=== PATIENT | female | born 1980 | race Caucasian/White ===

== ENCOUNTER 2019-09-23 00:46 | Emergency (ER) | payer MEDICARE ==
[~2019-09-23] VITALS: Ht 170 cm; Wt 58.2 kg
[2019-09-23 01:47] LABS: BASOPHILS % (AUTO) 0 % (0-10); EOSINOPHILS # (AUTO) 0.2 10^3/uL (0.0-0.3); EOSINOPHILS % (AUTO) 2 % (0-10); HEMATOCRIT 41 % (35-52); HEMOGLOBIN 13.8 G/DL (11.5-16.0); LYMPHOCYTES # (AUTO) 2.2 X 10^3 (1.0-4.0); LYMPHOCYTES % (AUTO) 32 % (12-44); MEAN CORPUSCULAR HEMOGLOBIN 31 PG (25-34); MEAN CORPUSCULAR HGB CONC 34 G/DL (32-36); MEAN CORPUSCULAR VOLUME 92 FL (80-99); MEAN PLATELET VOLUME 10.4 FL (7.4-10.4); MONOCYTES # (AUTO) 0.5 X 10^3 (0.0-1.0); MONOCYTES % (AUTO) 7 % (0-12); NEUTROPHILS % (AUTO) 59 % (42-75); PLATELET COUNT 187 10^3/uL (130-400); RED CELL DISTRIBUTION WIDTH 12.9 % (10.0-14.5); WHITE BLOOD COUNT 6.9 10^3/uL (4.3-11.0)
[2019-09-23 02:10] LABS: ALANINE AMINOTRANSFERASE 22 U/L (0-55); ALBUMIN 4.7 GM/DL (3.2-4.5); ALKALINE PHOSPHATASE 76 U/L (40-136); AMYLASE 48 U/L (25-125); BILIRUBIN,TOTAL 0.2 MG/DL (0.1-1.0); BUN/CREATININE RATIO 19; CALCIUM 9.2 MG/DL (8.5-10.1); CARBON DIOXIDE 19 MMOL/L (21-32); CHLORIDE 110 MMOL/L (98-107); CREATINE KINASE 102 U/L (29-168); CREATININE SERUM 0.84 MG/DL (0.60-1.30); GFR ESTIMATED > 60; GLUCOSE 91 MG/DL (70-105); LIPASE 79 U/L (8-78); MAGNESIUM 2.1 MG/DL (1.6-2.4); POTASSIUM 4.1 MMOL/L (3.6-5.0); SODIUM 139 MMOL/L (135-145); TOTAL PROTEIN 7.4 GM/DL (6.4-8.2)
[2019-09-23 02:11] LABS: BILIRUBIN,URINE NEGATIVE (NEGATIVE); CLARITY,URINE CLEAR; COLOR,URINE YELLOW; GLUCOSE, URINE (UA) NEGATIVE (NEGATIVE); KETONES,URINE NEGATIVE (NEGATIVE); LEUKOCYTE ESTERASE ,URINE NEGATIVE (NEGATIVE); NITRITE,URINE NEGATIVE (NEGATIVE); PH,URINE 7.5 (5-9); PROTEIN,URINE NEGATIVE (NEGATIVE)
[2019-09-23 02:17] LABS: CREATINE KINASE MB 1.6 NG/ML (<6.6)
[2019-09-23 02:18] LABS: PROTHROMBIN TIME PATIENT 13.8 SEC (12.2-14.7)
[2019-09-23 02:26] LABS: AMORPHOUS SEDIMENT,UR MOD AMOR PHOSPHATE /LPF; AMPHETAMINE SCREEN, URINE NEGATIVE (NEGATIVE); BACTERIA,URINE MODERATE /HPF; BARBITURATE SCREEN URINE NEGATIVE (NEGATIVE); BENZODIAZEPINES SCREEN URINE NEGATIVE (NEGATIVE); CANNABINOID SCREEN, URINE NEGATIVE (NEGATIVE); COCAINE SCREEN URINE NEGATIVE (NEGATIVE); METHADONE STAT NEGATIVE (NEGATIVE); METHAMPHETAMINE SCREEN URINE S NEGATIVE (NEGATIVE); OPIATE SCREEN URINE NEGATIVE (NEGATIVE); OXYCODONE STAT NEGATIVE (NEGATIVE); PROPOXYPHENE STAT NEGATIVE (NEGATIVE); SQUAMOUS EPITHELIAL CELL,UR 0-2 /HPF; TRICYCLIC ANTIDEPRESSANTS SCRE NEGATIVE (NEGATIVE)
--- NOTE | 2019-09-23 02:32 | ED Chest Pain ---
General Chief Complaint: Chest Pain Stated Complaint: CP/BACK PAIN Nursing Triage Note: Pt ambulates to 6 with multiple complaints. Pt c/o intermittent sternal chest pain and back pain x 2-3 wks. Pt also has c/o wheezing/increased work of breathing and jaw "throbbing" x 2 days. Pt states she is also "anxious because hasn't had her echo done in 5 months". Pt is hypotensive on arrival, pt states she has Hx of low blood pressure. 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 Smoking Status: Current Everyday Smoker Type Used: Cigarettes 2nd Hand Smoke Exposure: No Recent Foreign Travel: No Contact w/Someone Who Travel: No Recent Infectious Disease Expo: No Recent Hopitalizations: No Physical Abuse: No Sexual Abuse: No Mistreated: No Fear: No Seasonal Allergies Seasonal Allergies: No Past Medical History Surgeries: Yes (mitral valve replacement, cyst removal, MIHIR procedure ) Abdominal, Gallbladder Respiratory: No Cardiac: Yes (2 mitral valve replacements ) Hypotension Neurological: Yes (3 strokes, last one 2007, right sided residual deficits) Stroke Genitourinary: No Gastrointestinal: No Musculoskeletal: No Endocrine: No HEENT: No Cancer: No Psychosocial: Yes Depression Integumentary: No Blood Disorders: No Physical Exam Vital Signs Vital Signs - First Documented 09/23/19 01:43 Temp 36.6 Pulse 67 Resp 20 B/P (MAP) 101/46 (64) Pulse Ox 100 O2 Delivery Room Air Capillary Refill : Less Than 3 Seconds Height, Weight, BMI Height: '" Weight: lbs. oz. kg; 20.00 BMI Method: Progress/Results/Core Measures Results/Orders Lab Results Laboratory Tests Test 09/23/19 01:37 09/23/19 01:58 09/23/19 02:00 Range/Units White Blood Count 6.9 4.3-11.0 10^3/uL Red Blood Count 4.47 4.35-5.85 10^6/uL Hemoglobin 13.8 11.5-16.0 G/DL Hematocrit 41 35-52 % Mean Corpuscular Volume 92 80-99 FL Mean Corpuscular Hemoglobin 31 25-34 PG Mean Corpuscular Hemoglobin Concent 34 32-36 G/DL Red Cell Distribution Width 12.9 10.0-14.5 % Platelet Count 187 130-400 10^3/uL Mean Platelet Volume 10.4 7.4-10.4 FL Neutrophils (%) (Auto) 59 42-75 % Lymphocytes (%) (Auto) 32 12-44 % Monocytes (%) (Auto) 7 0-12 % Eosinophils (%) (Auto) 2 0-10 % Basophils (%) (Auto) 0 0-10 % Neutrophils # (Auto) 4.0 1.8-7.8 X 10^3 Lymphocytes # (Auto) 2.2 1.0-4.0 X 10^3 Monocytes # (Auto) 0.5 0.0-1.0 X 10^3 Eosinophils # (Auto) 0.2 0.0-0.3 10^3/uL Basophils # (Auto) 0.0 0.0-0.1 10^3/uL Sodium Level 139 135-145 MMOL/L Potassium Level 4.1 3.6-5.0 MMOL/L Chloride Level 110 H 98-107 MMOL/L Carbon Dioxide Level 19 L 21-32 MMOL/L Anion Gap 10 5-14 MMOL/L Blood Urea Nitrogen 16 7-18 MG/DL Creatinine 0.84 0.60-1.30 MG/DL Estimat Glomerular Filtration Rate > 60 BUN/Creatinine Ratio 19 Glucose Level 91 70-105 MG/DL Calcium Level 9.2 8.5-10.1 MG/DL Corrected Calcium 8.5-10.1 MG/DL Magnesium Level 2.1 1.6-2.4 MG/DL Total Bilirubin 0.2 0.1-1.0 MG/DL Aspartate Amino Transf (AST/SGOT) 24 5-34 U/L Alanine Aminotransferase (ALT/SGPT) 22 0-55 U/L Alkaline Phosphatase 76 40-136 U/L Total Creatine Kinase 102 29-168 U/L Creatine Kinase MB 1.6 <6.6 NG/ML Myoglobin 27.0 10.0-92.0 NG/ML Troponin I < 0.028 <0.028 NG/ML B-Type Natriuretic Peptide 18.8 <100.0 PG/ML Total Protein 7.4 6.4-8.2 GM/DL Albumin 4.7 H 3.2-4.5 GM/DL Amylase Level 48 25-125 U/L Lipase 79 H 8-78 U/L Serum Test, Qualitative NEGATIVE NEGATIVE Serum Alcohol < 10 <10 MG/DL Prothrombin Time 13.8 12.2-14.7 SEC INR Comment 1.0 0.8-1.4 Activated Partial Thromboplast Time 31 24-35 SEC Urine Color YELLOW Urine Clarity CLEAR Urine pH 7.5 5-9 Urine Specific [place] 1.015 L 1.016-1.022 Urine Protein NEGATIVE NEGATIVE Urine Glucose (UA) NEGATIVE NEGATIVE Urine Ketones NEGATIVE NEGATIVE Urine Nitrite NEGATIVE NEGATIVE Urine Bilirubin NEGATIVE NEGATIVE Urine Urobilinogen 0.2 < = 1.0 MG/DL Urine Leukocyte Esterase NEGATIVE NEGATIVE Urine RBC (Auto) NEGATIVE NEGATIVE Urine RBC NONE /HPF Urine WBC NONE /HPF Urine Squamous Epithelial Cells 0-2 /HPF Urine Crystals PRESENT H /LPF Urine Amorphous Sediment MOD JANNET PHOSPHATE H /LPF Urine Bacteria MODERATE H /HPF Urine Casts NONE /LPF Urine Mucus NEGATIVE /LPF Urine Culture Indicated NO Urine Opiates Screen NEGATIVE NEGATIVE Urine Oxycodone Screen NEGATIVE NEGATIVE Urine Methadone Screen NEGATIVE NEGATIVE Urine Propoxyphene Screen NEGATIVE NEGATIVE Urine Barbiturates Screen NEGATIVE NEGATIVE Ur Tricyclic Antidepressants Screen NEGATIVE NEGATIVE Urine Phencyclidine Screen NEGATIVE NEGATIVE Urine Amphetamines Screen NEGATIVE NEGATIVE Urine Methamphetamines Screen NEGATIVE NEGATIVE Urine Benzodiazepines Screen NEGATIVE NEGATIVE Urine Cocaine Screen NEGATIVE NEGATIVE Urine Cannabinoids Screen NEGATIVE NEGATIVE My Orders Orders - AMINTA HANNAH DO Cbc With Automated Diff (09/23/19 01:36) Magnesium (09/23/19 01:36) Chest 1 View, Ap/Pa Only (09/23/19:36) Ekg Tracing (09/23/19 01:36) Comprehensive Metabolic Panel (09/23/19 01:36) Myoglobin Serum (09/23/19 01:36) Protime With Inr (09/23/19:36) Partial Thromboplastin Time (09/23/19:36) O2 (09/23/19 01:36) Monitor-Rhythm Ecg Trace Only (09/23/19 01:36) Ed Iv/Invasive Line Start (09/23/19 01:36) Creatine Kinase (09/23/19 01:36) Creatine Kinase Mb (09/23/19 01:36) Lipase (2/16/20 01:36) Amylase (09/23/19 01:36) BNP (09/23/19 01:36) Drug Screen Stat (Urine) (09/23/19 01:36) Hcg,Qualitative Serum (09/23/19 01:36) Ua Culture If Indicated (09/23/19 01:36) Alcohol (09/23/19 01:37) Troponin I (09/23/19 01:37) Vital Signs/I&O 09/23/19 09/23/19 01:43 01:48 Temp 36.6 Pulse 67 Resp 20 B/P (MAP) 101/46 (64) Pulse Ox 100 O2 Delivery Room Air Room Air Blood Pressure Mean: 64 Departure Impression Primary Impression: Chest wall pain Disposition: HOME, SELF-CARE Condition: Stable Departure-Patient Inst. Referrals: NO,LOCAL PHYSICIAN (PCP/Family) Primary Care Physician Patient Instructions: Chest Pain (DC), Costochondritis (DC) Add. Discharge Instructions: ALTERNATE ICE AND HEAT TO SORE AREAS AT 20 MINUTE INTERVALS TYLENOL AND MOTRIN NEEDED FOR PAIN FOLLOW UP WITH LOCAL DR OF CHOICE SOON POSSIBLE TO ESTABLISH CARE All discharge instructions reviewed with patient and/or family. Voiced understanding. Work/School Note: Local Medical Staff Listing AMINTA HANNAH DO Sep 23, 2019 02:32
[2019-09-23 02:39] VITALS: BP 91/55
--- NOTE | 2019-09-23 07:41 | Diagnostic Imaging Report ---
INDICATION: Chest pain. FINDINGS: Lungs appear to be mildly hyperinflated evidenced by flattened diaphragms. There are no focal infiltrates. There is no effusion. There is no pneumothorax. Heart size and mediastinal contours appear appropriate. Linear densities over the mid chest may reflect prior sternotomy wires. Heart size appropriate. There is no evidence of current failure. IMPRESSION: 1. Hyperinflated clear lungs. No acute cardiopulmonary process evident. Dictated by: Dictated on workstation # [id number]
== END 2019-09-23 02:39 | disposition home or self-care (01) ==
LOC: EDUNIT# 00:46 → ER 00:48
DX: R07.89 Other chest pain (principal); F17.210 Nicotine dependence, cigarettes, uncomplicated; Z95.2 Presence of prosthetic heart valve; Z86.73 Personal history of transient ischemic attack (TIA), and cerebral infarction without residual deficits
CPT/HCPCS: 36415; 71045; 80053; 80306; 80320; 81000; 82150; 82550; 82553; 83690; 83735; 83874; 83880; 84484; 84703; 85025; 85610; 85730; 93005; 93041

== ENCOUNTER 2019-10-18 22:34 | Emergency (ER) | payer MEDICARE ==
[~2019-10-18] VITALS: Ht 170.2 cm; Wt 59.0 kg
--- NOTE | 2019-10-19 01:33 | ED Fall/Injury ---
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 Pt reports hitting head, denies LOC. C/O headache and R elbow pain Source: patient History of Present Illness Date Seen by Provider: Oct 18, 2019 Time Seen by Provider: 23:55 Initial Comments PT ARRIVES VIA POV FROM HOME STATES SHE FELL DOWN 2 STEPS AT HOME, ONTO CEMENT GIVES VERY VAGUE DETAILS ABOUT THE INCIDENT--STATES IT OCCURRED AN HOUR AGO AND WAS WITNESSED BY HER BOYFRIEND C/O PAIN TO HER HEAD--DOES NOT KNOW IF SHE HIT HER HEAD OR NOT, AND CANNOT STATE WHAT PART OF HER HEAD HURTS. 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 PT IS UP TO DATE ON TETANUS VACCINATION PCP: MIGUELINA, ALSO GOES TO [facility] Allergies and Home Medications Allergies Coded Allergies: metronidazole (Unverified Allergy, Unknown, 09/23/19) Patient Home Medication List Home Medication List Reviewed: Yes Review of Systems Review of Systems Constitutional: no symptoms reported Eyes: No Symptoms Reported Ears, Nose, Mouth, Throat: no symptoms reported Respiratory: no symptoms reported Cardiovascular: no symptoms reported Gastrointestinal: no symptoms reported Genitourinary: no symptoms reported : No LMP: Oct 09, 2019 Musculoskeletal: see HPI Skin: no symptoms reported Psychiatric/Neurological: See HPI, Pre-Existing Deficit Past Alxfnzv-Zalhou-Dxncft Hx Past Med/Social Hx: Reviewed and Corrections made Patient Social History Alcohol Use: Denies Use Recreational Drug Use: Yes (+IV HEROIN USE) Drug of Choice: + IV HEROIN USE Smoking Status: Current Everyday Smoker (>1 PPD) Type Used: Cigarettes (> 1 PPD) 2nd Hand Smoke Exposure: No Recent Foreign Travel: No Contact w/Someone Who Travel: No Recent Infectious Disease Expo: No Recent Hopitalizations: No Immunizations Up To Date Tetanus Booster (TDap): Unknown Seasonal Allergies Seasonal Allergies: No Past Medical History Surgeries: Yes (Mitral valve replacement x 2, craniotomy, MIHIR procedure) Cardiac, Gallbladder, Neurological, Tonsillectomy, Valve Replacement Respiratory: No Cardiac: Yes (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) Endocarditis, Valvular Heart Disease Neurological: Yes (RIGHT ARM PARALYSIS W/ CONTRACTURES;CVA X 3-LAST ONE 2007;LEFT CRANIOTOMY) Paralysis, Seizure Disorder, Stroke Last Menstrual Period: Oct 17, 2019 Reproductive Disorders: No Female Reproductive Disorders: Denies Genitourinary: No Gastrointestinal: Yes ("MIHIR PROCEDURE" ON COLON) Chronic Constipation Musculoskeletal: Yes (RIGHT ARM CONTRACTURES) Contracture Endocrine: No HEENT: No Cancer: No Psychosocial: Yes (SUBSTANCE ABUSE) Anxiety, Depression Integumentary: No Blood Disorders: No Family Medical History PSH: -MITRAL VALVE REPLACEMENT X 2--LAST ONE IN 2007 IN [facility]. DUE TO ENDOCARDITIS DUE TO IV HEROIN USE -LEFT CRANIOTOMY DUE TO "BLOOD CLOT ON BRAIN" -"MIHIR PROCEDURE" ON COLON -CHOLECYSTECTOMY -CYST REMOVAL Physical Exam Vital Signs Vital Signs - First Documented 10/18/19 23:08 Temp 36.8 Pulse 68 Resp 18 B/P (MAP) 125/67 (86) Pulse Ox 100 O2 Delivery Room Air Capillary Refill : Less Than 3 Seconds Height, Weight, BMI Height: '" Weight: lbs. oz. kg; 20.00 BMI Method: General Appearance: no apparent distress, thin, other (SMILING, PLAYING/TEXTING ON PHONE,DOES NOT APPEAR TO BE IN ANY DISCOMFORT OR DISTRESS) HEENT: PERRL/EOMI, normal ENT inspection, TMs normal, pharynx normal, other (NO EXTERNAL EVIDENCE OF TRAUMA OR TENDERNESS. LEFT SKULL DEFORMITY FROM PREVIOUS CRANIOTOMY) Neck: non-tender, full range of motion, supple, normal inspection Cardiovascular: normal peripheral pulses, regular rate, rhythm, no murmur Respiratory: chest non-tender, normal breath sounds, no respiratory distress, no accessory muscle use Peripheral Pulses: 2+ Dorsalis Pedis (R), 2+ Left Dors-Pedis (L), 2+ Radial Pulses (R), 2+ Radial Pulses (L) Gastrointestinal: normal bowel sounds, non tender, soft Back: normal inspection, no CVA tenderness, no vertebral tenderness Extremities: no pedal edema, no calf tenderness, normal capillary refill, other (VERY SLIGHT TENDERNESS TO RIGHT ELBOW, WITH VERY MINOR / SUPERFICIAL ABRASIONS--BARELY BROKE SKIN. NO SWELLING OR REDNESS OR BRUISING. NO DEFORMITY. 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 ) Skin: normal color, warm/dry [place] Coma Score Best Eye Response: (4) Open Spontaneously Best Verbal Response: (5) Oriented Best Motor Response: (6) Obeys Commands [place] Total: 15 Progress/Results/Core Measures Results/Orders My Orders Orders - AMINTA HANNAH DO Ct Head/Cervical Spine Wo (10/19/19 00:04) Elbow, Right, 3 Views (10/19/19 00:04) Vital Signs/I&O 10/18/19 10/19/19 23:08 01:56 Temp 36.8 36.8 Pulse 68 65 Resp 18 18 B/P (MAP) 125/67 (86) 132/71 (86) Pulse Ox 100 100 O2 Delivery Room Air Room Air Blood Pressure Mean: 86 Diagnostic Imaging Comments XRAYS RIGHT ELBOW--NO ACUTE PROCESS, PENDING RADIOLOGIST REVIEW CT HEAD/CERVICAL SPINE--NO ACUTE PROCESS, POST SURGICAL CHANGES PER STAT RAD VIA FAX Reviewed: Reviewed by Me Departure Impression Primary Impression: Minor head injury without loss of consciousness Additional Impressions: Contusion of right elbow CERVICAL SPINE STRAIN Disposition: 01 HOME, SELF-CARE Condition: Stable Departure-Patient Inst. Referrals: NO,LOCAL PHYSICIAN (PCP/Family) Primary Care Physician Patient Instructions: Cervical Muscle Strain (DC), Contusion (DC), Minor Head Injury (DC) Add. Discharge Instructions: ICE TO SORE AREAS AT 20 MINUTE INTERVALS TYLENOL NEEDED FOR PAIN FOLLOW UP WITH YOUR DR IN 1 WEEK IF NO BETTER, RETURN TO ER IF WORSE All discharge instructions reviewed with patient and/or family. Voiced understanding. AMINTA HANNAH DO Oct 19, 2019 01:32
[2019-10-19 01:56] VITALS: BP 132/71
--- NOTE | 2019-10-19 06:13 | Diagnostic Imaging Report ---
PROCEDURE: CT head and CT cervical spine without contrast. TECHNIQUE: Multiple contiguous axial images were obtained through the brain and cervical spine without the use of intravenous contrast. Sagittal and coronal reformations through the cervical spine were then performed. Auto Exposure Controls were utilized during the CT exam to meet ALARA standards for radiation dose reduction. INDICATION: Head and neck pain after fall. Comparison made with prior examination 02/04/2008. FINDINGS: The ventricles and sulci are within normal limits. There is no hydrocephalus or cerebral edema. There is no midline shift or mass effect. There is no intracranial mass, hemorrhage or extra-axial fluid collection. The visualized paranasal sinuses and mastoid air cells are clear. No fractures are identified. CERVICAL SPINE: Alignment is normal. There is no fracture or traumatic subluxation. The prevertebral soft tissues are within normal limits. The odontoid is intact and the lateral masses are well aligned. There are no soft tissue abnormalities. IMPRESSION: 1. No acute intracranial process. 2. No focal abnormality in the cervical spine. Dictated by: Dictated on workstation # [id number]
--- NOTE | 2019-10-19 06:55 | Diagnostic Imaging Report ---
INDICATION: Status post fall earlier in the day, pain. TECHNIQUE: 3 views of the right elbow CORRELATION STUDY: None FINDINGS: There is normal alignment of the osseous structures of the elbow. No acute fracture. No abnormal joint effusion. IMPRESSION: 1. Negative for acute bony abnormality of the elbow. Dictated by: Dictated on workstation # [id number]
--- OUTSIDE RECORDS SUMMARY | 2019-10-20 20:25 | XMS REPORT | Continuity of Care Document ---
Author Organization Unknown Address Unknown Phone Unavailable Allergies Active Description Code Type Severity Reaction Onset Reported/Identified Relationship to Patient Clinical Status Yes metronidazole [id number] Manuel g Allergy Unknown N/A 09/23/2019 Medications There is no data. Problems Date Dx Coded Attending Type Code Diagnosis Diagnosed By 09/23/2019 CAMDEN DO, AMINTA K Ot F17.210 NICOTINE DEPENDENCE, CIGARETTES, UNCOMPL 09/23/2019 CAMDEN DO, AMINTA K Ot R07.89 OTHER CHEST PAIN 09/23/2019 CAMDEN DO, AMINTA K Ot R07.9 CHEST PAIN, UNSPECIFIED 09/23/2019 CAMDEN DO, AMINTA K Ot Z86.73 PRSNL HX OF TIA (TIA), AND CEREB INFRC W 09/23/2019 CAMDEN DO, AMINTA K Ot Z95.2 PRESENCE OF PROSTHETIC HEART VALVE 09/28/2019 CAMDEN DO, AMINTA K Ot F17.210 NICOTINE DEPENDENCE, CIGARETTES, UNCOMPL 09/28/2019 CAMDEN DO, AMINTA K Ot R07.89 OTHER CHEST PAIN 09/28/2019 CAMDEN DO, AMINTA K Ot R07.9 CHEST PAIN, UNSPECIFIED 09/28/2019 CAMDEN DO, AMINTA K Ot Z86.73 PRSNL HX OF TIA (TIA), AND CEREB INFRC W 09/28/2019 CAMDEN DO, AMINTA K Ot Z95.2 PRESENCE OF PROSTHETIC HEART VALVE 10/03/2019 CAMDEN DO, AMINTA K Ot F17.210 NICOTINE DEPENDENCE, CIGARETTES, UNCOMPL 10/03/2019 CAMDEN DO, AMINTA K Ot R07.89 OTHER CHEST PAIN 10/03/2019 CAMDEN DO, AMINTA K Ot R07.9 CHEST PAIN, UNSPECIFIED 10/03/2019 CAMDEN DO, AMINTA K Ot Z86.73 PRSNL HX OF TIA (TIA), AND CEREB INFRC W 10/03/2019 CAMDEN DO, AMINTA K Ot Z95.2 PRESENCE OF PROSTHETIC HEART VALVE Procedures There is no data. Results Test Result Range Complete blood count (CBC) with automate d white blood cell (WBC) differential - 09/23/19 01:37 Blood leukocytes automated count (number/volume) 6.9 10*3/uL 4.3-11.0 Blood erythrocytes automated count (number/volume) 4.47 10*6/uL 4.35-5.85 Venous blood hemoglobin measurement (mass/volume) 13.8 g/dL 11.5-16.0 Blood hematocrit (volume fraction) 41 % 35-52 Automated erythrocyte mean corpuscular volume 92 [ foz_us] 80-99 Automated erythrocyte mean corpuscular h emoglobin (mass per erythrocyte) 31 pg 25-34 Automated erythrocyte mean corpuscular h emoglobin concentration measurement (mass/volume) 34 g/dL 32-36 Automated erythrocyte distribution width ratio 12. 9 % 10.0- 14.5 Automated blood platelet count (count/volume) 187 10*3/uL 130-400 Automated blood platelet mean volume measurement 10.4 [foz_us] 7.4-10.4 Automated blood neutrophils/100 leukocytes 59 % 42-75 Automated blood lymphocytes/100 leukocytes 32 % 12-44 Blood monocytes/100 leukocytes 7 % 0-12 Automated blood eosinophils/100 leukocytes 2 % 0-10 Automated blood basophils/100 leukocytes 0 % 0-10 Blood neutrophils automated count (number/volume) 4.0 10*3 1.8-7.8 Blood lymphocytes automated count (number/volume) 2.2 10*3 1.0-4.0 Blood monocytes automated count (number/volume) 0. 5 10*3 0.0-1.0 Automated eosinophil count 0.2 10*3/uL 0 .0-0.3 Automated blood basophil count (count/volume) 0.0 10*3/uL 0.0-0.1 Serum or plasma choriogonadotropin (preg jael test) detection - 09/23/19 01:37 Serum or plasma choriogonadotropin ( test) de tection NEGATIVE NEGATIVE Comprehensive metabolic panel - 09/23/19 01:37 Serum or plasma sodium measurement (moles/volume) 139 mmol/L 135-145 Serum or plasma potassium measurement (moles/volume) 4.1 mmol/L 3.6-5.0 Serum or plasma chloride measurement (moles/volume) 110 mmol/L 98-107 Carbon dioxide 19 mmol/L 21-32 Serum or plasma anion gap determination (moles/volume) 10 mmol/L 5-14 Serum or plasma urea nitrogen measurement (mass/volume ) 16 mg/dL 7-18 Serum or plasma creatinine measurement (mass/volume) 0.84 mg/dL 0.60-1.30 Serum or plasma urea nitrogen/creatinine mass ratio 19 NRG Serum or plasma creatinine measurement w ith calculation of estimated glomerular filtration rate > NRG Serum or plasma glucose measurement (mass/volume) 91 mg/dL 70-105 Serum or plasma calcium measurement (mass/volume) 9.2 mg/dL 8.5-10.1 Serum or plasma total bilirubin measurement (mass/volu me) 0.2 mg/dL 0.1-1.0 Serum or plasma alkaline phosphatase bettina surement (enzymatic activity/volume) 76 U/L 40-136 Serum or plasma aspartate aminotransfera se measurement (enzymatic activity/volume) 24 U/L 5-34 Serum or plasma alanine aminotransferase measurement (enzymatic activity/volume) 22 U/L 0-55 Serum or plasma protein measurement (mass/volume) 7.4 g/dL 6.4-8.2 Serum or plasma albumin measurement (mass/volume) 4.7 g/dL 3.2-4.5 Magnesium - 09/23/19 01:37 Magnesium 2.1 mg/dL 1.6-2.4 Serum or plasma creatine kinase measurem ent (enzymatic activity/volume) - 09/23/19 01:37 Serum or plasma creatine kinase measurem ent (enzymatic activity/volume) 102 U/L 29-168 Serum or plasma creatine kinase MB measu rement (enzymatic activity/volume) - 09/23/19 01:37 Serum or plasma creatine kinase MB measu rement (enzymatic activity/volume) 1.6 ng/mL <6.6 Serum or plasma troponin i.cardiac measu rement (mass/volume) - 09/23/19 01:37 Serum or plasma troponin i.cardiac measurement (mass/v olume) < ng/mL <0.028 Serum or plasma lithium measurement (mol es/volume) - 09/23/19 01:37 BNP PT 18.8 pg/mL <100.0 Myoglobin, serum - 09/23/19 01:37 Myoglobin, serum 27.0 ng/mL 10.0-92.0 Serum or plasma amylase measurement (enz ymatic activity/volume) - 09/23/19 01:37 Serum or plasma amylase measurement (enzymatic activit y/volume) 48 U/L 25-125 Lipase - 09/23/19 01:37 Lipase 79 U/L 8-78 Serum or plasma ethanol measurement (mas s/volume) - 09/23/19 01:37 Serum or plasma ethanol measurement (mass/volume) < mg/dL <10 PT panel in platelet poor plasma by coag ulation assay - 09/23/19 01:58 Prothrombin time (PT) in platelet poor plasma by coagu lation assay 13.8 s 12.2-14.7 INR in platelet poor plasma or blood by coagulation as say 1.0 0.8-1.4 Activated partial thromboplastin time (a PTT) in platelet poor plasma bycoagulation assay - 09/23/19 01:58 Activated partial thromboplastin time (a PTT) in platelet poor plasma bycoagulation assay 31 s 24-35 Complete urinalysis with reflex to cultu re - 09/23/19 02:00 Urine color determination YELLOW NRG Urine clarity determination CLEAR NR G Urine pH measurement by test strip 7.5 5-9 Specific gravity of urine by test strip 1.015 1.016-1.022 Urine protein assay by test strip, semi-quantitative NEGATIVE NEGATIVE Urine glucose detection by automated test strip NE GATIVE NEGATIVE Erythrocytes detection in urine sediment by light micr oscopy NEGATIVE NEGATIVE Urine ketones detection by automated test strip NE GATIVE NEGATIVE Urine nitrite detection by test strip NEGATIVE NEGATIVE Urine total bilirubin detection by test strip NEGA TIVE NEGATIVE Urine urobilinogen measurement by automated test strip (mass/volume) 0.2 mg/dL < = 1.0 Urine leukocyte esterase detection by dipstick NEG ATIVE NEGATIVE Automated urine sediment erythrocyte cou nt by microscopy (number/high power field) NONE NRG Automated urine sediment leukocyte count by microscopy (number/high power field) NONE NRG Bacteria detection in urine sediment by light microsco py MODERATE NRG Squamous epithelial cells detection in u rine sediment by light microscopy 0-2 NRG Crystals detection in urine sediment by light microsco py PRESENT NRG Casts detection in urine sediment by light microscopy NONE NRG Mucus detection in urine sediment by light microscopy NEGATIVE NRG Complete urinalysis with reflex to culture NO NRG Amorphous sediment detection in urine sediment by ligh t microscopy MOD JANNET PHOSPHATE NRG Urine drug screening test - 09/23/19 02: 00 Urine phencyclidine detection by screening method NEGATIVE NEGATIVE Urine benzodiazepines detection by screening method NEGATIVE NEGATIVE Urine cocaine detection NEGATIVE NEGATI VE Urine amphetamines detection by screening method N EGATIVE NEGATIVE Urine methamphetamine detection by screening method NEGATIVE NEGATIVE Urine cannabinoids detection by screening method N EGATIVE NEGATIVE Urine opiates detection by screening method NEGATI VE NEGATIVE Urine barbiturates detection NEGATIVE N EGATIVE Screening urine tricyclic antidepressants detection NEGATIVE NEGATIVE Urine methadone detection by screening method NEGA TIVE NEGATIVE Urine oxycodone detection NEGATIVE NEGA TIVE Urine propoxyphene detection NEGATIVE N EGATIVE Encounters ACCT No. Visit Date/Time Discharge Status Pt. Type Provider Facility Loc./Unit Complaint [id number] 10/01/2019 14:20:00 10/01/2019 23:59: [address] [facility] Outpatient CHASE REYES, [facility] [id number] 10/18/2019 22:36:00 01:58:00 DIS Emergency CAMDEN DOAMINTA [facility] ER FALL [id number] 09/23/2019 00:48:00 020 02:39:00 DIS Emergency CAMDEN DOAMINTA [facility] ER CP/BACK PAIN
== END 2019-10-19 01:58 | disposition home or self-care (01) ==
LOC: EDUNIT# 22:34 → ER 22:36
DX: S09.90XA Unspecified injury of head, initial encounter (principal); S16.1XXA Strain of muscle, fascia and tendon at neck level, initial encounter; S50.01XA Contusion of right elbow, initial encounter; R40.2142 Coma scale, eyes open, spontaneous, at arrival to emergency department; R40.2252 Coma scale, best verbal response, oriented, at arrival to emergency department; R40.2362 Coma scale, best motor response, obeys commands, at arrival to emergency department; F17.210 Nicotine dependence, cigarettes, uncomplicated; Z86.73 Personal history of transient ischemic attack (TIA), and cerebral infarction without residual deficits; Z88.8 Allergy status to other drugs, medicaments and biological substances; W10.9XXA Fall (on) (from) unspecified stairs and steps, initial encounter; Y92.009 Unspecified place in unspecified non-institutional (private) residence as the place of occurrence of the external cause
CPT/HCPCS: 70450; 72125; 73080

== ENCOUNTER 2019-10-26 14:15 | Emergency (ER) | payer MEDICARE ==
[~2019-10-26] VITALS: Ht 170.2 cm; Wt 58.1 kg
[2019-10-26 14:23] VITALS: BP 110/77
[2019-10-26] MEDS ORDERED: ACETAMINOPHEN 325 MG TABLET PO ONE (14:45)
--- NOTE | 2019-10-26 14:47 | ED Head Injury ---
General Chief Complaint: Head/Cervical Problems Stated Complaint: HEAD PAIN;FALL Nursing Triage Note: pt amb to triage with complaint of fall. states fell and hit head on a hammer. states was feeling "in and out" prior to the fall. pt is alert and oriented at time of triage. states take baby aspirin daily. History of Present Illness Date Seen by Provider: Oct 26, 2019 Time Seen by Provider: 14:30 Initial Comments 38-year-old female presents for fall from a ladder approximately 3 foot high, there was a hammer on the ground that she hit her head on. She lost her balance, as her legs are not functioning normally due to her Botox injections being overdue. She recently moved here. She denies LOC, nausea, vomiting, vision changes, balance issues, neck pain, seizure activity or other changes from her baseline. Occurred: just prior to arrival Location: parietal Loss of Consciousness: no loss of consciousness Associated Systoms: Denies Symptoms; No Chest Pain, No Cough, No Diaphoresis, No Fever/Chills, No Headaches, No Loss of Appetite, No Malaise, No Nausea/Vomiting, No Rash, No Seizure, No Shortness of Air, No Syncope, No Weakness, No Other Allergies and Home Medications Allergies Coded Allergies: metronidazole (Unverified Allergy, Unknown, 09/23/19) Patient Home Medication List Home Medication List Reviewed: Yes Review of Systems Review of Systems Constitutional: no symptoms reported, see HPI Musculoskeletal: no symptoms reported, see HPI; No back pain, No neck pain Psychiatric/Neurological: See HPI; Denies Headache All Other Systems Reviewed Negative Unless Noted: Yes Past Kokrenx-Cwcsgl-Lomnjs Hx Past Med/Social Hx: Reviewed Nursing Past Med/Soc Hx Patient Social History Alcohol Use: Denies Use Recreational Drug Use: Yes Drug of Choice: + IV HEROIN USE Smoking Status: Current Everyday Smoker Type Used: Cigarettes 2nd Hand Smoke Exposure: No Recent Foreign Travel: No Contact w/Someone Who Travel: No Recent Infectious Disease Expo: No Recent Hopitalizations: No Immunizations Up To Date Tetanus Booster (TDap): Unknown Seasonal Allergies Seasonal Allergies: No Past Medical History Surgeries: Yes (Mitral valve replacement x 2, craniotomy, MIHIR procedure) Cardiac, Gallbladder, Neurological, Tonsillectomy, Valve Replacement Respiratory: No Cardiac: Yes (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) Endocarditis, Valvular Heart Disease Neurological: Yes (RIGHT ARM PARALYSIS W/ CONTRACTURES;CVA X 3-LAST ONE 2007;LEFT CRANIOTOMY) Paralysis, Seizure Disorder, Stroke Reproductive Disorders: No Female Reproductive Disorders: Denies Genitourinary: No Gastrointestinal: Yes ("MIHIR PROCEDURE" ON COLON) Chronic Constipation Musculoskeletal: Yes (RIGHT ARM CONTRACTURES) Contracture Endocrine: No HEENT: No Cancer: No Psychosocial: Yes (SUBSTANCE ABUSE) Anxiety, Depression Integumentary: No Blood Disorders: No Family Medical History PSH: -MITRAL VALVE REPLACEMENT X 2--LAST ONE IN 2007 IN [facility]. DUE TO ENDOCARDITIS DUE TO IV HEROIN USE -LEFT CRANIOTOMY DUE TO "BLOOD CLOT ON BRAIN" -"MIHIR PROCEDURE" ON COLON -CHOLECYSTECTOMY -CYST REMOVAL Physical Exam Vital Signs Vital Signs - First Documented 10/26/19 14:23 Temp 36.7 Pulse 80 Resp 20 B/P (MAP) 110/77 (88) Pulse Ox 100 O2 Delivery Room Air Capillary Refill : Less Than 3 Seconds Height, Weight, BMI Height: '" Weight: lbs. oz. kg; 20.00 BMI Method: General Appearance: WD/WN, no apparent distress HEENT: PERRL/EOMI, normal ENT inspection, TMs normal, pharynx normal Neck: non-tender, full range of motion, supple, normal inspection Cardiovascular: normal peripheral pulses, regular rate, rhythm Respiratory: chest non-tender, lungs clear, normal breath sounds, no respiratory distress Gastrointestinal: normal bowel sounds, non tender, soft Back: normal inspection, no vertebral tenderness; No decreased range of motion, No muscle spasm, No vertebral tenderness Extremities: normal range of motion, non-tender, normal inspection, no pedal edema, no calf tenderness, normal capillary refill Psychiatric: alert, oriented x 3 Crainal Nerves: normal hearing, normal speech, PERRL Coordination/Gait: normal finger to nose, normal gait Motor/Sensory: no motor deficit, no sensory deficit Skin: normal color, warm/dry Estelle Coma Score Best Eye Response: (4) Open Spontaneously Best Verbal Response: (5) Oriented Best Motor Response: (6) Obeys Commands [place] Total: 15 Progress/Results/Core Measures Results/Orders My Orders Orders - FANNY HANSEN Acetaminophen Tablet/Caplet (Tylenol T (10/26/19 14:45) Vital Signs/I&O 10/26/19 14:23 Temp 36.7 Pulse 80 Resp 20 B/P (MAP) 110/77 (88) Pulse Ox 100 O2 Delivery Room Air Blood Pressure Mean: 88 Progress Progress Note : Time: 14:30 Progress Note Patient seen and evaluated, discussed CT risks/benefits. Patient agreeable to be watched by her SO and mother. If change in mental status or other neurological findings she will return for CT. Stressed importance to obtain PCP. Discharge instructions and return precautions reviewed with the patient. All questions answered. Departure Impression Primary Impression: Minor head injury without loss of consciousness Qualified Codes: S09.90XA - Unspecified injury of head, initial encounter Additional Impression: Contusion of head Qualified Codes: S00.03XA - Contusion of scalp, initial encounter Disposition: HOME, SELF-CARE Condition: Improved Departure-Patient Inst. Decision time for Depature: 14:40 Referrals: MEÑO DARNELL,LOCAL PHYSICIAN (PCP) Primary Care Physician Patient Instructions: Minor Head Injury (DC) Add. Discharge Instructions: Keep your feet on the ground, no ladders or other elevated surfaces. No driving for 2-3 days. Brain rest, limited or no use of phones, computers, TV or other electronics for 2 weeks. Ice to contusion 20 min every 2 hours, while awake Tylenol 650 mg every 6-8 hours for headache. Establish care with a primary care provider. Watch for changes in mental status, nausea and vomiting, seizure activity, vision changes, or other new findings. Return to emergency department for new, urgent health care needs. All discharge instructions reviewed with patient and/or family. Voiced understanding. FANNY HANSEN Oct 26, 2019 14:47
--- OUTSIDE RECORDS SUMMARY | 2019-10-26 18:49 | XMS REPORT | Continuity of Care Document ---
Author Organization Unknown Address Unknown Phone Unavailable Allergies Active Description Code Type Severity Reaction Onset Reported/Identified Relationship to Patient Clinical Status Yes metronidazole [id number] Manuel g Allergy Unknown N/A 09/23/2019 Medications [...] Status Pt. Type Provider Facility Loc./Unit Complaint [id number] 10/01/2019 14:20:00 10/01/2019 23:59: 59 CLS Outpatient CHASE REYES, [facility] [id number] 10/26/2019 14:16:00 14:55:00 DIS Emergency FANNY HANSEN Via [facility] ER HEAD PAIN;FALL [id number] 10/18/2019 22:36:00 01:58:00 DIS Emergency CAMDEN DOAMINTA a [facility] ER FALL [id number] 09/23/2019 00:48:00 020 02:39:00 DIS Emergency CAMDEN DOAMINTA [facility] ER CP/BACK PAIN
== END 2019-10-26 14:55 | disposition home or self-care (01) ==
LOC: EDUNIT# 14:15 → ER 14:16
DX: S09.90XA Unspecified injury of head, initial encounter (principal); S00.03XA Contusion of scalp, initial encounter; R40.2142 Coma scale, eyes open, spontaneous, at arrival to emergency department; R40.2252 Coma scale, best verbal response, oriented, at arrival to emergency department; R40.2362 Coma scale, best motor response, obeys commands, at arrival to emergency department; F17.210 Nicotine dependence, cigarettes, uncomplicated; Z95.2 Presence of prosthetic heart valve; W11.XXXA Fall on and from ladder, initial encounter
CPT/HCPCS: 99283

== ENCOUNTER 2020-02-26 15:37 | Emergency (ER) | payer MEDICARE, OTHER ==
[~2020-02-26] VITALS: Ht 167.7 cm; Wt 58.0 kg
--- NOTE | 2020-02-26 16:00 | NUR ---
PT REFUSED TO BE WEIGHED AT THIS TIME, STATED SHE KNOWS HOW MUCH SHE WEIGHS.
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
--- NOTE | 2020-02-26 16:31 | Diagnostic Imaging Report ---
INDICATION: Injury. COMPARISON: None available. TECHNIQUE: Three radiographs of the left knee dated February 26, 2020. FINDINGS: No acute fracture or dislocation. No destructive osseous process. Joint spaces are well maintained. No joint effusion. No suspicious radiopaque foreign body. IMPRESSION: No acute osseous abnormality. Dictated by: Dictated on workstation # [id number]
--- NOTE | 2020-02-26 16:40 | Diagnostic Imaging Report ---
INDICATION: Injury with pain. FINDINGS: The two view left hip shows no fracture or dislocation. IMPRESSION: Negative. Dictated by: Dictated on workstation # [id number]
[2020-02-26 16:57] VITALS: BP 111/84
--- OUTSIDE RECORDS SUMMARY | 2020-02-26 20:45 | XMS REPORT | Continuity of Care Document ---
Author Organization Unknown Address Unknown Phone Unavailable Allergies Active Description Code Type Severity Reaction Onset Reported/Identified Relationship to Patient Clinical Status Yes metronidazole [id number] Manuel g Allergy Unknown N/A 09/23/2019 Medications There is no data. Problems Date Dx Coded Attending Type Code Diagnosis Diagnosed By 09/23/2019 CAMDEN DO, AMINAT K Ot F17.210 NICOTINE DEPENDENCE, CIGARETTES, UNCOMPL [...] Ot Z95.2 PRESENCE OF PROSTHETIC HEART VALVE 10/19/2019 CAMDEN DO, AMINTA K Ot F17.210 NICOTINE DEPENDENCE, CIGARETTES, UNCOMPL 10/19/2019 CAMDEN DO, AMINTA Arlyn Ot R40.214 2 COMA SCALE, EYES OPEN, SPONTANEOUS, EMR 10/19/2019 CAMDEN DO, AMINTA Stoddard Ot R40.225 2 COMA SCALE, BEST VERBAL RESPONSE, ORIENT 10/19/2019 IONIA DO, AMINTA Arlyn Ot R40.236 2 COMA SCALE, BEST MOTOR RESPONSE, OBEYS C 10/19/2019 IONIA DOAMINTA Ot S09.90X A UNSPECIFIED INJURY OF HEAD, INITIAL ENCO 10/19/2019 CAMDEN DO, AMINTA Stoddard Ot S16.1XX A STRAIN OF MUSCLE, FASCIA AND TENDON AT N 10/19/2019 IONIA DOAMINTA Ot S50.01X A CONTUSION OF RIGHT ELBOW, INITIAL ENCOUN 10/19/2019 CAMDEN DO, AMINTA Stoddard Ot W10.9XX A FALL (ON) (FROM) UNSPECIFIED STAIRS AND 10/19/2019 CAMDEN DOAMINTA Ot Y92.[address] [facility] [address] IN [facility] NON-INSTITUT (PRIVATE 10/19/2019 CAMDEN DO, AMINTA Stoddard Ot Z86.73 PRSNL HX OF TIA (TIA), AND CEREB INFRC W 10/19/2019 IONIA DO, AMINTA Stoddard Ot Z88.8 ALLERGY STATUS TO OTH DRUG/MEDS/BIOL SUB 10/26/2019 JADE, FANNY MCCARTNEY Ot F17.210 NICOTINE DEPENDENCE, CIGARETTES, UNCOMPL 10/26/2019 JADE, FANNY MCCARTNEY Ot R40.2142 COMA SCALE, EYES OPEN, SPONTANEOUS, EMR 10/26/2019 JADE, FANNY MCCARTNEY Ot R40.2252 COMA SCALE, BEST VERBAL RESPONSE, ORIENT 10/26/2019 JADE, FANNY MCCARTNEY Ot R40.2362 COMA SCALE, BEST MOTOR RESPONSE, OBEYS C 10/26/2019 JADE, FANNY MCCARTNEY Ot S00.03XA CONTUSION OF SCALP, INITIAL ENCOUNTER 10/26/2019 JADE, FANNY MCCARTNEY Ot S09.90XA UNSPECIFIED INJURY OF HEAD, INITIAL ENCO 10/26/2019 JADE, FANNY MCCARTNEY Ot W11.XXXA FALL ON AND FROM LADDER, INITIAL ENCOUNT 10/26/2019 JADE, FANNY MCCARTNEY Ot Z95.2 PRESENCE OF PROSTHETIC HEART VALVE 10/31/2019 JADE, FANNY FISHERP Ot F17.210 NICOTINE DEPENDENCE, CIGARETTES, UNCOMPL 10/31/2019 JADE, FANNY CASING WRINGER OPERATOR Ot R40.2142 COMA SCALE, EYES OPEN, SPONTANEOUS, EMR 10/31/2019 JADE, FANNY FISHERP Ot R40.2252 COMA SCALE, BEST VERBAL RESPONSE, ORIENT 10/31/2019 JADE, FANNY FISHERP Ot R40.2362 COMA SCALE, BEST MOTOR RESPONSE, OBEYS C 10/31/2019 JADE, FANNY CASING WRINGER OPERATOR Ot S00.03XA CONTUSION OF SCALP, INITIAL ENCOUNTER 10/31/2019 JADE, FANNY CASING WRINGER OPERATOR Ot S09.90XA UNSPECIFIED INJURY OF HEAD, INITIAL ENCO 10/31/2019 JADE, FANNY MCCARTNEY Ot W11.XXXA FALL ON AND FROM LADDER, INITIAL ENCOUNT 10/31/2019 JADE, FANNY CASING WRINGER OPERATOR Ot Z95.2 PRESENCE OF PROSTHETIC HEART VALVE [...] Status Pt. Type Provider Facility Loc./Unit Complaint [id number] 01/19/2020 08:10:00 01/19/2020 23:59: 59 CLS Outpatient CHASE REYES, [facility] [id number] 10/26/2019 14:16:00 14:55:00 DIS Emergency FANNY HANSEN Via [facility] ER HEAD PAIN;FALL [id number] 10/18/2019 22:36:00 01:58:00 DIS Emergency CAMDEN AMINTA JOSEPH Vi a [facility] ER FALL [id number] 09/23/2019 00:48:00 020 02:39:00 DIS Emergency AMINTA HANNAH DO [facility] ER CP/BACK PAIN
== END 2020-02-26 16:57 | disposition home or self-care (01) ==
LOC: EDUNIT# 15:37 → ER 15:39
DX: S80.02XA Contusion of left knee, initial encounter (principal); S70.02XA Contusion of left hip, initial encounter; W20.8XXA Other cause of strike by thrown, projected or falling object, initial encounter; Y93.9 Activity, unspecified; Y92.481 Parking lot as the place of occurrence of the external cause; F17.210 Nicotine dependence, cigarettes, uncomplicated; G40.909 Epilepsy, unspecified, not intractable, without status epilepticus; K59.09 Other constipation; F41.9 Anxiety disorder, unspecified; F32.9 Major depressive disorder, single episode, unspecified; Z95.4 Presence of other heart-valve replacement; Z86.73 Personal history of transient ischemic attack (TIA), and cerebral infarction without residual deficits; Z88.1 Allergy status to other antibiotic agents
CPT/HCPCS: 73502; 73562

== ENCOUNTER 2020-04-01 18:48 | Emergency (ER) | payer MEDICARE ==
[~2020-04-01] VITALS: Ht 170 cm; Wt 60.1 kg
[2020-04-01] MEDS ORDERED: CARB400T8 (19:13)
[2020-04-01] MEDS ORDERED: CARB-88 (19:13)
[2020-04-01] MEDS ORDERED: MIRT45TA75 (19:13)
[2020-04-01] MEDS ORDERED: BACL20TA (19:13)
[2020-04-01] MEDS ORDERED: ZONI100C29 (19:13)
[2020-04-01] MEDS ORDERED: ESCI10TA55 (19:13)
--- NOTE | 2020-04-01 19:36 | Diagnostic Imaging Report ---
PROCEDURE: CT head and CT cervical spine without contrast. TECHNIQUE: Multiple contiguous axial images were obtained through the brain and cervical spine without the use of intravenous contrast. Sagittal and coronal reformations through the cervical spine were then performed. Auto Exposure Controls were utilized during the CT exam to meet ALARA standards for radiation dose reduction. INDICATION: Fall from standing position, with head and neck pain. CORRELATION is made with prior CT from 10/19/2019. CT HEAD: Postsurgical changes from left frontal craniotomy are noted. There is an area of encephalomalacia in the left frontal lobe, similar to prior exam. A smaller area of encephalomalacia in the right frontal lobe is unchanged. Postoperative changes in the left posterior parietal-occipital lobe is stable. No sulcal effacement or midline shift is identified. No acute intra-axial or extra-axial hemorrhage is detected. Cisterns are patent. Visualized paranasal sinuses are clear. IMPRESSION: Stable postoperative changes when compared with the exam from 10/19/2019. No acute intracranial process is identified. CT CERVICAL SPINE: Alignment is normal. No fracture or subluxation is identified. Prevertebral tissues are within normal limits. Odontoid is intact. IMPRESSION: No acute bony abnormality is detected. Dictated by: Dictated on workstation # [id number]
--- NOTE | 2020-04-01 20:16 | ED Head Injury ---
General Chief Complaint: Trauma-Non Activation Stated Complaint: FALL - HEAD PAIN Nursing Triage Note: c/o fall from standing position striking left side of head against wall. reports intermittant right arm numbness/nausea. denies loc. Source: patient Exam Limitations: no limitations History of Present Illness Date Seen by Provider: Apr 01, 2020 Time Seen by Provider: 19:14 Allergies and Home Medications Allergies Coded Allergies: metronidazole (Unverified Allergy, Unknown, 09/23/19) Past Ansttad-Uenghs-Lbvrnw Hx Patient Social History Alcohol Use: Denies Use Recreational Drug Use: No Drug of Choice: denies Smoking Status: Current Everyday Smoker Type Used: Cigarettes 2nd Hand Smoke Exposure: No Recent Foreign Travel: No Contact w/Someone Who Travel: No Recent Infectious Disease Expo: No Recent Hopitalizations: No Physical Abuse: No Sexual Abuse: No Mistreated: No Fear: No Immunizations Up To Date Tetanus Booster (TDap): Unknown Seasonal Allergies Seasonal Allergies: No Past Medical History Surgeries: Yes (Mitral valve replacement x 2, craniotomy, MIHIR procedure) Cardiac, Gallbladder, Neurological, Tonsillectomy, Valve Replacement Respiratory: No Cardiac: Yes (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) Endocarditis, Valvular Heart Disease Neurological: Yes (RIGHT ARM PARALYSIS W/ CONTRACTURES;CVA X 3-LAST ONE 2007;LEFT CRANIOTOMY) Paralysis, Seizure Disorder, Stroke : No Last Menstrual Period: Mar 30, 2020 Reproductive Disorders: No Female Reproductive Disorders: Denies Genitourinary: No Gastrointestinal: Yes ("MIHIR PROCEDURE" ON COLON) Chronic Constipation Musculoskeletal: Yes (RIGHT ARM CONTRACTURES) Contracture Endocrine: No HEENT: No Cancer: No Psychosocial: Yes Anxiety, Depression Integumentary: No Blood Disorders: No Family Medical History PSH: -MITRAL VALVE REPLACEMENT X 2--LAST ONE IN 2007 IN [facility]. DUE TO ENDOCARDITIS DUE TO IV HEROIN USE -LEFT CRANIOTOMY DUE TO "BLOOD CLOT ON BRAIN" -"MIHIR PROCEDURE" ON COLON -CHOLECYSTECTOMY -CYST REMOVAL Physical Exam Vital Signs Vital Signs - First Documented 04/01/20 19:02 Temp 37.1 Pulse 77 Resp 16 B/P (MAP) 105/61 (76) Pulse Ox 97 O2 Delivery Room Air Capillary Refill : Less Than 3 Seconds Height, Weight, BMI Height: '" Weight: lbs. oz. kg; 20.00 BMI Method: Progress/Results/Core Measures Results/Orders My Orders Orders - DAVID ALBA Ct Head/Cervical Spine Wo (04/01/20 19:14) Vital Signs/I&O 04/01/20 19:02 Temp 37.1 Pulse 77 Resp 16 B/P (MAP) 105/61 (76) Pulse Ox 97 O2 Delivery Room Air Blood Pressure Mean: 76 Departure Impression Primary Impression: Minor head injury Disposition: HOME, SELF-CARE Condition: Stable/Unchanged Departure-Patient Inst. Decision time for Depature: 20:16 Referrals: NO,LOCAL PHYSICIAN (PCP/Family) Primary Care Physician Patient Instructions: Minor Head Injury (DC) Add. Discharge Instructions: You may use ibuprofen and Tylenol as needed for pain relief. Ice to the sore areas at 20 minute intervals. Follow-up with your primary care provider within 1 week for recheck. Return back to the emergency room for worsening symptoms or concerns as needed. All discharge instructions reviewed with patient and/or family. Voiced understanding. DAVID ALBA Apr 01, 2020 20:16
[2020-04-01 20:29] VITALS: BP 104/62
== END 2020-04-01 20:29 | disposition home or self-care (01) ==
LOC: EDUNIT# 18:48 → ER 18:49
DX: S09.90XA Unspecified injury of head, initial encounter (principal); F17.210 Nicotine dependence, cigarettes, uncomplicated; Z88.1 Allergy status to other antibiotic agents; Z86.73 Personal history of transient ischemic attack (TIA), and cerebral infarction without residual deficits; W18.39XA Other fall on same level, initial encounter; W22.8XXA Striking against or struck by other objects, initial encounter
CPT/HCPCS: 70450; 72125

== ENCOUNTER → 2020-09-19 | Outpatient (CLI) | payer MEDICARE ==
[~2020-09-19] MED LIST: BACL20TA; CARB-88; CARB400T8; ESCI-2; MIRT45TA75; ZONI100C29
== END ==
LOC: LABNPT 08:44
DX: Z20.822 Contact with and (suspected) exposure to COVID-19 (principal)
CPT/HCPCS: 87635

== ENCOUNTER 2020-12-27 14:14 | Emergency (ER) | payer MEDICARE ==
[~2020-12-27] VITALS: Ht 170 cm; Wt 63.5 kg
--- NOTE | 2020-12-27 14:31 | ED Neurological Problem ---
General Stated Complaint: NOT FEELING RIGHT/HX OF STROKE Source: patient Exam Limitations: no limitations History of Present Illness Date Seen by Provider: December 27, 2020 Time Seen by Provider: 14:24 Initial Comments This is a 40-year-old female who presents to the ER with her spouse for complaints of feeling disoriented, tingling in her right arm, just not "feeling right". States she has a history of prior strokes x3 with right-sided residual deficit. Additionally states that she has a history of migraines, grand mal seizures, and panic disorders that all feels similar to this current episode. Does states that she currently has a migraine and has had similar symptoms with her migraines in the past. However, due to her history of multiple CVA's she wanted to get checked out. Headache is constant throbbing in the left side of her head. Weakness in right arm is her baseline. No fever, chills, cough, shortness of breath, nausea/vomiting, diarrhea. Allergies and Home Medications Allergies Coded Allergies: metronidazole (Unverified Allergy, Unknown, 09/23/19) Patient Home Medication List Home Medication List Reviewed: Yes Review of Systems Review of Systems Constitutional: see HPI Eyes: See HPI Ears, Nose, Mouth, Throat: no symptoms reported Respiratory: no symptoms reported Cardiovascular: no symptoms reported Gastrointestinal: no symptoms reported Genitourinary: no symptoms reported Musculoskeletal: see HPI Skin: no symptoms reported Psychiatric/Neurological: See HPI, Anxiety, Headache, Numbness, Weakness Endocrine: No Symptoms Reported Hematologic/Lymphatic: See HPI Past Ogigcya-Bykrjl-Yttaem Hx Patient Social History Drug of Choice: denies Type Used: Cigarettes 2nd Hand Smoke Exposure: No Recent Hopitalizations: No Immunizations Up To Date Tetanus Booster (TDap): Unknown Seasonal Allergies Seasonal Allergies: No Past Medical History Surgeries: Yes (Mitral valve replacement x 2, craniotomy, MIHIR procedure) Cardiac, Gallbladder, Neurological, Tonsillectomy, Valve Replacement Respiratory: No Cardiac: Yes (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 oz. kg; 20.00 BMI Method: General Appearance: WD/WN, no apparent distress HEENT: PERRL/EOMI, normal ENT inspection, TMs normal, pharynx normal Neck: full range of motion, supple, normal inspection Respiratory: lungs clear, normal breath sounds, no respiratory distress, no accessory muscle use Cardiovascular: normal peripheral pulses, regular rate, rhythm, no murmur Peripheral Pulses: 2+ Radial Pulses (R), 2+ Radial Pulses (L) Gastrointestinal: normal bowel sounds, non tender, soft, no organomegaly; No mass Back: normal inspection, no vertebral tenderness Extremities: No normal range of motion (Limted AROM right arm ); normal inspection, no pedal edema, normal capillary refill Neurologic/Psychiatric: alert, normal mood/affect, oriented x 3, abnormal gait (antalgic gait, hip replacement left hip 09/2020); No aphasia; facial droop (right side, chronic ), motor weakness (RUE), sensory deficit (RUE) Crainal Nerves: normal hearing, normal speech, PERRL; No abnormal eye position, No abnormal pupil position, No facial paresthesias, No facial weakness, No gaze palsy Coordination/Gait: abnormal gait Motor/Sensory: weak motor strength RUE Skin: normal color, warm/dry Stroke NIH Stroke Scale Assessment Select: Initial Level of Consciousness: 0=Alert (0), Level of Consciousness- Questions: 0=Answers both month/age (0), LOC Commands: 0=Performs both tasks (0), Gaze: Normal (0), Visual Fortune: 0=No visual loss (0), Facial Movement (Facial Paresis): 1=Minor paralysis (1), Motor Function-Arms Right: 1=Drift (1), Motor Function-Arms Left: 0=No drift (0), Motor Function-Legs Right: 0=No drift (0), Motor Function-Legs Left: 0=No drift (0), Limb Ataxia: 0=Absent (0), Sensory: 1=Mild to Moderate loss (1), Best Language: 0=No aphasia (0), Dysarthria: 0=Normal (0), Extinction & Inattention: 0=No abnormality (0), Total: 3 Progress/Results/Core Measures Results/Orders Lab Results Laboratory Tests Test 12/27/20 14:46 Range/Units White Blood Count 5.3 4.3-11.0 10^3/uL Red Blood Count 4.32 3.80-5.11 10^6/uL Hemoglobin 13.5 11.5-16.0 g/dL Hematocrit 41 35-52 % Mean Corpuscular Volume 95 80-99 fL Mean Corpuscular Hemoglobin 31 25-34 pg Mean Corpuscular Hemoglobin Concent 33 32-36 g/dL Red Cell Distribution Width 12.5 10.0-14.5 % Platelet Count 157 130-400 10^3/uL Mean Platelet Volume 10.1 9.0-12.2 fL Immature Granulocyte % (Auto) 0 % Neutrophils (%) (Auto) 61 42-75 % Lymphocytes (%) (Auto) 29 12-44 % Monocytes (%) (Auto) 8 0-12 % Eosinophils (%) (Auto) 1 0-10 % Basophils (%) (Auto) 0 0-10 % Neutrophils # (Auto) 3.3 1.8-7.8 10^3/uL Lymphocytes # (Auto) 1.6 1.0-4.0 10^3/uL Monocytes # (Auto) 0.4 0.0-1.0 10^3/uL Eosinophils # (Auto) 0.1 0.0-0.3 10^3/uL Basophils # (Auto) 0.0 0.0-0.1 10^3/uL Immature Granulocyte # (Auto) 0.0 0.0-0.1 10^3/uL Prothrombin Time 13.8 12.2-14.7 SEC INR Comment 1.0 0.8-1.4 Activated Partial Thromboplast Time 29 24-35 SEC D-Dimer 0.59 H 0.00-0.49 UG/ML Urine Color YELLOW Urine Clarity CLEAR Urine pH 6.0 5-9 Urine Specific [place] <=1.005 1.016-1.022 Urine Protein NEGATIVE NEGATIVE Urine Glucose (UA) NEGATIVE NEGATIVE Urine Ketones NEGATIVE NEGATIVE Urine Nitrite NEGATIVE NEGATIVE Urine Bilirubin NEGATIVE NEGATIVE Urine Urobilinogen 0.2 < = 1.0 MG/DL Urine Leukocyte Esterase NEGATIVE NEGATIVE Urine RBC (Auto) NEGATIVE NEGATIVE Urine RBC NONE /HPF Urine WBC NONE /HPF Urine Squamous Epithelial Cells 5-10 /HPF Urine Crystals NONE /LPF Urine Bacteria NEGATIVE /HPF Urine Casts NONE /LPF Urine Mucus NEGATIVE /LPF Urine Culture Indicated NO Sodium Level 141 135-145 MMOL/L Potassium Level 3.9 3.6-5.0 MMOL/L Chloride Level 110 H 98-107 MMOL/L Carbon Dioxide Level 24 21-32 MMOL/L Anion Gap 7 5-14 MMOL/L Blood Urea Nitrogen 14 7-18 MG/DL Creatinine 0.83 0.60-1.30 MG/DL Estimat Glomerular Filtration Rate > 60 BUN/Creatinine Ratio 17 Glucose Level 100 70-105 MG/DL Calcium Level 9.0 8.5-10.1 MG/DL Corrected Calcium 8.8 8.5-10.1 MG/DL Total Bilirubin 0.3 0.1-1.0 MG/DL Aspartate Amino Transf (AST/SGOT) 25 5-34 U/L Alanine Aminotransferase (ALT/SGPT) 42 0-55 U/L Alkaline Phosphatase 87 40-136 U/L Troponin I < 0.028 <0.028 NG/ML Total Protein 6.6 6.4-8.2 GM/DL Albumin 4.3 3.2-4.5 GM/DL My Orders Orders - PETRONA FRANCO APRN Ua Culture If Indicated (12/27/20 14:15) Cbc With Automated Diff (12/27/20 14:31) Protime With Inr (12/27/20 14:31) Partial Thromboplastin Time (12/27/20 14:31) Comprehensive Metabolic Panel (12/27/20 14:31) Fibrin Degradation Products (12/27/20 14:31) Troponin I (12/27/20 14:31) Ekg Tracing (12/27/20 14:31) Accucheck Stat ONCE (12/27/20 14:31) Ed Iv/Invasive Line Start (12/27/20 14:31) Vital Signs Stroke Patient Q15M (12/27/20 14:31) Ct Head Wo-R/O Stroke (12/27/20 14:31) Monitor-Rhythm Ecg Trace Only (12/27/20 14:31) Dysphagia Screening Tool (12/27/20 14:31) Vital Signs/I&O 12/27/20 12/27/20 14:17 15:56 Temp 35.5 35.5 Pulse 90 90 Resp 18 18 B/P (MAP) 142/88 (106) 142/88 (106) Pulse Ox 99 99 O2 Delivery Room Air Progress Progress Note : Progress Note Patient examined and in no acute distress. Initiated stroke work-up due to prior history, has NIH of 3 although all deficits identified she reports as chronic deficits. After returning from radiology she states that her headache is no longer present, symptoms are no longer present, and she feels much im proved. States that she is ready to discharge. Discussed staying until results of head CT and labs returned and she is agreeable with this. Labs reviewed and are unremarkable. D-dimer slightly elevated-0.59. Head CT negative for acute pathology. Discussed slight elevation in D-dimer and as she has no specific symptoms of DVT, PE, etc. is likely related to recent surgical procedure. Reviewed findings with her, states that she feels that these symptoms were related to headaches. States she is feeling much improved and would like to discharge. Discussed with her that she can return to the emergency department if she has any increasing weakness, new, concerning symptoms. She verbalized understanding. Reviewed discharge POC and she is agreeable with plan. Initial ECG Impression Date: December 27, 2020 Initial ECG Impression Time: 15:13 Initial ECG Rate: 64 Initial ECG Rhythm: Normal Sinus Initial ECG Intervals: Normal Initial ECG Impression: Normal Initial ECG Comparisson: Unchanged Diagnostic Imaging Diagonstic Imaging: CT Plain Films/CT/US/NM/MRI: head Comments [facility] [place], [place] NAME: GISELLE [facility]ALL [facility] REC#: [id number] PT STATUS: REG ER : 1980 PHYSICIAN: PETRONA FRANCO LIMB DRIVER ADMIT DATE: 12/27/20/ER Signed Date of Exam:12/27/20 CT HEAD WO-R/O STROKE PROCEDURE: CT head wo r/o stroke. TECHNIQUE: Multiple contiguous axial images were obtained through the brain without the use of intravenous contrast. Auto Exposure Controls were utilized during the CT exam to meet ALARA standards for radiation dose reduction. INDICATION: History of stroke. Neurological deficit. COMPARISON: 04/01/2020 FINDINGS: The ventricles and cortical sulci are age-appropriate. There is encephalomalacia in the left frontal lobe from old infarct. There is mild encephalomalacia in the left occipital lobe as well. A small focus of encephalomalacia is seen in the right frontal lobe. There is no midline shift or mass effect. No acute intracranial hemorrhage is seen. There is no CT evidence of acute territorial ischemia. There are postsurgical changes in the left frontal and the left occipital regions. No acute calvarial fracture is seen. Visualized paranasal sinuses are clear. IMPRESSION: 1. No acute intracranial hemorrhage or CT evidence of acute territorial ischemia. 2. Multifocal areas of encephalomalacia from old infarcts, stable since the prior exam. Dictated by: Dictated on workstation # [id number] Dict: 12/27/20 1503 Trans: 12/27/20 1604 [facility] [id number] Interpreted by: ERICKSON MALDONADO MD Electronically signed by: ERICKSON MALDONADO MD 12/27/20 1604 Reviewed: Reviewed by Me Departure Impression Primary Impression: Migraine with aura Disposition: 01 HOME, SELF-CARE Condition: Improved Departure-Patient Inst. Decision time for Depature: 15:45 Referrals: NO,LOCAL PHYSICIAN (PCP/Family) Primary Care Physician Patient Instructions: Migraines (DC) Add. Discharge Instructions: Plan: 1. Follow up with your primary care provider next week. 2. Avoid cupping at the massage therapist office. 3. Return for any new, concerning, or worsening symptoms. PETRONA FRANCO LIMB DRIVER December 27, 2020 14:31
[2020-12-27 14:53] LABS: BASOPHILS % (AUTO) 0 % (0-10); EOSINOPHILS # (AUTO) 0.1 10^3/uL (0.0-0.3); EOSINOPHILS % (AUTO) 1 % (0-10); HEMATOCRIT 41 % (35-52); HEMOGLOBIN 13.5 g/dL (11.5-16.0); LYMPHOCYTES # (AUTO) 1.6 10^3/uL (1.0-4.0); LYMPHOCYTES % (AUTO) 29 % (12-44); MEAN CORPUSCULAR HEMOGLOBIN 31 pg (25-34); MEAN CORPUSCULAR HGB CONC 33 g/dL (32-36); MEAN CORPUSCULAR VOLUME 95 fL (80-99); MEAN PLATELET VOLUME 10.1 fL (9.0-12.2); MONOCYTES # (AUTO) 0.4 10^3/uL (0.0-1.0); MONOCYTES % (AUTO) 8 % (0-12); NEUTROPHILS # (AUTO) 3.3 10^3/uL (1.8-7.8); NEUTROPHILS % (AUTO) 61 % (42-75); PLATELET COUNT 157 10^3/uL (130-400); WHITE BLOOD COUNT 5.3 10^3/uL (4.3-11.0)
[2020-12-27 14:54] LABS: BILIRUBIN,URINE NEGATIVE (NEGATIVE); CLARITY,URINE CLEAR; COLOR,URINE YELLOW; GLUCOSE, URINE (UA) NEGATIVE (NEGATIVE); KETONES,URINE NEGATIVE (NEGATIVE); LEUKOCYTE ESTERASE ,URINE NEGATIVE (NEGATIVE); NITRITE,URINE NEGATIVE (NEGATIVE); PROTEIN,URINE NEGATIVE (NEGATIVE)
[2020-12-27 15:06] LABS: ALBUMIN 4.3 GM/DL (3.2-4.5); CHLORIDE 110 MMOL/L (98-107); POTASSIUM 3.9 MMOL/L (3.6-5.0); SODIUM 141 MMOL/L (135-145)
[2020-12-27 15:08] LABS: GLUCOSE 100 MG/DL (70-105); TOTAL PROTEIN 6.6 GM/DL (6.4-8.2)
[2020-12-27 15:09] LABS: BACTERIA,URINE NEGATIVE /HPF
[2020-12-27 15:10] LABS: BILIRUBIN,TOTAL 0.3 MG/DL (0.1-1.0); CARBON DIOXIDE 24 MMOL/L (21-32)
[2020-12-27 15:12] LABS: ALKALINE PHOSPHATASE 87 U/L (40-136); CREATININE SERUM 0.83 MG/DL (0.60-1.30); GFR ESTIMATED > 60
[2020-12-27 15:13] LABS: BUN/CREATININE RATIO 17; FIBRIN DEGRADATION PRODUCTS 0.59 UG/ML (0.00-0.49); PROTHROMBIN TIME PATIENT 13.8 SEC (12.2-14.7)
[2020-12-27 15:15] LABS: ALANINE AMINOTRANSFERASE 42 U/L (0-55)
--- NOTE | 2020-12-27 15:29 | Diagnostic Imaging Report ---
PROCEDURE: CT head wo r/o stroke. TECHNIQUE: Multiple contiguous axial images were obtained through the brain without the use of intravenous contrast. Auto Exposure Controls were utilized during the CT exam to meet ALARA standards for radiation dose reduction. INDICATION: History of stroke. Neurological deficit. COMPARISON: 04/01/2020 FINDINGS: The ventricles and cortical sulci are age-appropriate. There is encephalomalacia in the left frontal lobe from old infarct. There is mild encephalomalacia in the left occipital lobe as well. A small focus of encephalomalacia is seen in the right frontal lobe. There is no midline shift or mass effect. No acute intracranial hemorrhage is seen. There is no CT evidence of acute territorial ischemia. There are postsurgical changes in the left frontal and the left occipital regions. No acute calvarial fracture is seen. Visualized paranasal sinuses are clear. IMPRESSION: 1. No acute intracranial hemorrhage or CT evidence of acute territorial ischemia. 2. Multifocal areas of encephalomalacia from old infarcts, stable since the prior exam. Dictated by: Dictated on workstation # [id number]
[2020-12-27 15:56] VITALS: BP 142/88
== END 2020-12-27 15:56 | disposition home or self-care (01) ==
LOC: EDUNIT# 14:14 → ER 14:15
DX: G43.109 Migraine with aura, not intractable, without status migrainosus (principal); R79.1 Abnormal coagulation profile; I69.392 Facial weakness following cerebral infarction; I69.351 Hemiplegia and hemiparesis following cerebral infarction affecting right dominant side; R26.89 Other abnormalities of gait and mobility; G40.409 Other generalized epilepsy and epileptic syndromes, not intractable, without status epilepticus; Z96.642 Presence of left artificial hip joint; Z98.890 Other specified postprocedural states
CPT/HCPCS: 36415; 70450; 80053; 81000; 84484; 85025; 85379; 85610; 85730; 93005

== ENCOUNTER 2021-02-08 16:37 | Emergency (ER) | payer MEDICARE ==
[~2021-02-08] VITALS: Ht 170 cm; Wt 54.0 kg
--- NOTE | 2021-02-08 17:11 | ED EENT ---
History of Present Illness General Chief Complaint: Dental Problems/Pain Stated Complaint: HEADACHE/DENTAL PAIN Nursing Triage Note: COMPLAINT OF HEADACHE, WHICH PATIENT STATES IS FROM HER BAD TOOTH. Source: patient Exam Limitations: no limitations (ALLYN BARRERA APRN) History of Present Illness Date Seen by Provider: Feb 08, 2021 Time Seen by Provider: 17:09 Initial Comments To ER with bandlike headache. She has nausea as well. She believes this to be originating from a left lower dental infection. There is no swelling there but she has had some pain in that tooth for a while. She also has a bulge in the upper abdomen at the inferior aspect of her sternotomy scar. 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 Prior to that she had a CVA in 2007 which underwent hemorrhagic transformation requiring craniotomy. This left her with Right sided spastic hemiplegia. For that, she underwent chemical denervation with a multitude of botox injections in right upper and lower extremities in January this year.. She denies fevers or chills. She is passing gas but states that her abdomen is distended and tender. Is that she awakened during the night a few nights ago with gasping for breath and palpitations. That lasted for about 1 minute before resolving. She has a history of panic attacks but this felt different. Timing/Duration: abrupt Severity: moderate Location: dental Prearrival Treatment: no prearrival treatment Associated Symptoms: denies symptoms, poor solids intake (ALLYN BARRERA APRN) Allergies and Home Medications Allergies Coded Allergies: metronidazole (Unverified Allergy, Unknown, 09/23/19) Home Medications Penicillin V Potassium 500 Mg Tablet, 500 MG PO QID Prescribed by: ALLYN BARRERA on 02/08/21 [id number] Patient Home Medication List Home Medication List Reviewed: Yes (ALLYN BARRERA APRN) Review of Systems Review of Systems Constitutional: see HPI Eyes: No Symptoms Reported Ears: No Symptoms Reported Nose: no symptoms reported Mouth: no symptoms reported Throat: no symptoms reported Respiratory: no symptoms reported Cardiovascular: no symptoms reported Musculoskeletal: no symptoms reported (ALLYN BARRERA APRN) Past Gfuyrxi-Mkzklz-Silghm Hx Patient Social History Tobacco Use?: Yes Tobacco type used: Cigarettes Smoking Status: Current Everyday Smoker Alcohol Use?: No Pt feels they are or have been: No (ALLYN BARRERA APRN) Immunizations Up To Date Tetanus Booster (TDap): Unknown (ALLYN BARRERA APRN) Seasonal Allergies Seasonal Allergies: No (ALLYN BARRERA APRN) Past Medical History Surgeries: Yes (Mitral valve replacement x 2, craniotomy, MIHIR procedure) Cardiac, Gallbladder, Neurological, Tonsillectomy, Valve Replacement Respiratory: No Cardiac: Yes (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) Endocarditis, Valvular Heart Disease Neurological: Yes (RIGHT ARM PARALYSIS W/ CONTRACTURES;CVA X 3-LAST ONE 2007 ;LEFT CRANIOTOMY) Paralysis, Seizure Disorder, Stroke Reproductive Disorders: No Female Reproductive Disorders: Denies Genitourinary: No Gastrointestinal: Yes ("MIHIR PROCEDURE" ON COLON) Chronic Constipation Musculoskeletal: Yes (RIGHT ARM CONTRACTURES) Contracture Endocrine: No HEENT: No Cancer: No Psychosocial: Yes Anxiety, Depression Integumentary: No Blood Disorders: No (ALLYN BARRERA APRN) Family Medical History PSH: -MITRAL VALVE REPLACEMENT X 2--LAST ONE IN 2007 IN [facility]. DUE TO ENDOCARDITIS DUE TO IV HEROIN USE -LEFT CRANIOTOMY DUE TO "BLOOD CLOT ON BRAIN" -"MIHIR PROCEDURE" ON COLON -CHOLECYSTECTOMY -CYST REMOVAL (ALLYN BARRERA APRN) Physical Exam Vital Signs Vital Signs - First Documented 02/08/21 16:47 Temp 36.9 Pulse 72 Resp 20 B/P (MAP) 127/65 (85) Pulse Ox 100 O2 Delivery Room Air (ALMAZ MILLER MD) Height, Weight, BMI Height: '" Weight: lbs. oz. kg; 18.00 BMI Method: General Appearance: WD/WN, no apparent distress Eyes: bilateral eye normal inspection, bilateral eye PERRL, bilateral eye EOMI Ears: bilateral ear auricle normal, bilateral ear canal normal, bilateral ear TM normal Mouth/Throat: No mandibular swelling, No maxillary swelling; other (There is a left lower tooth that is carious but without gingival or buccal abscess.) Neck: non-tender, full range of motion; No lymphadenopathy (R), No lymphadenopathy (L) Respiratory: no respiratory distress, no accessory muscle use Gastrointestinal: normal bowel sounds, non tender, soft Neurologic/Psychiatric: alert, normal mood/affect, oriented x 3 Skin: normal color, warm/dry (ALLYN BARRERA APRN) Progress/Results/Core Measures Results/Orders Lab Results Laboratory Tests Test 02/08/21 17:05 Range/Units White Blood Count 6.0 4.3-11.0 10^3/uL Red Blood Count 4.38 3.80-5.11 10^6/uL Hemoglobin 13.5 11.5-16.0 g/dL Hematocrit 41 35-52 % Mean Corpuscular Volume 94 80-99 fL Mean Corpuscular Hemoglobin 31 25-34 pg Mean Corpuscular Hemoglobin Concent 33 32-36 g/dL Red Cell Distribution Width 12.0 10.0-14.5 % Platelet Count 162 130-400 10^3/uL Mean Platelet Volume 10.8 9.0-12.2 fL Immature Granulocyte % (Auto) 1 % Neutrophils (%) (Auto) 63 42-75 % Lymphocytes (%) (Auto) 29 12-44 % Monocytes (%) (Auto) 6 0-12 % Eosinophils (%) (Auto) 1 0-10 % Basophils (%) (Auto) 1 0-10 % Neutrophils # (Auto) 3.8 1.8-7.8 10^3/uL Lymphocytes # (Auto) 1.7 1.0-4.0 10^3/uL Monocytes # (Auto) 0.4 0.0-1.0 10^3/uL Eosinophils # (Auto) 0.1 0.0-0.3 10^3/uL Basophils # (Auto) 0.0 0.0-0.1 10^3/uL Immature Granulocyte # (Auto) 0.0 0.0-0.1 10^3/uL Sodium Level 139 135-145 MMOL/L Potassium Level 3.9 3.6-5.0 MMOL/L Chloride Level 108 H 98-107 MMOL/L Carbon Dioxide Level 20 L 21-32 MMOL/L Anion Gap 11 5-14 MMOL/L Blood Urea Nitrogen 19 H 7-18 MG/DL Creatinine 0.75 0.60-1.30 MG/DL Estimat Glomerular Filtration Rate > 60 BUN/Creatinine Ratio 25 Glucose Level 91 70-105 MG/DL Calcium Level 8.6 8.5-10.1 MG/DL Corrected Calcium 8.2 L 8.5-10.1 MG/DL Total Bilirubin 0.3 0.1-1.0 MG/DL Aspartate Amino Transf (AST/SGOT) 32 5-34 U/L Alanine Aminotransferase (ALT/SGPT) 53 0-55 U/L Alkaline Phosphatase 86 40-136 U/L Total Protein 7.1 6.4-8.2 GM/DL Albumin 4.5 3.2-4.5 GM/DL (ALMAZ MILLER MD) Medications Given in ED Current Medications Medications Dose Ordered Sig/Lita Route Start Time Stop Time Status Last Admin Dose Admin Diphenhydramine HCl 25 mg ONCE ONCE IVP 02/08/21 17:15 02/08/21 17:16 DC 02/08/21 17:14 25 MG Ketorolac Tromethamine 15 mg ONCE ONCE IVP 02/08/21 17:15 02/08/21 17:16 DC 02/08/21 17:15 15 MG Prochlorperazine Edisylate 2 mg ONCE ONCE IV 02/08/21 17:15 02/08/21 17:16 DC 02/08/21 17:11 5 MG (ALMAZ MILLER MD) Vital Signs/I&O 02/08/21 02/08/21 16:47 18:15 Temp 36.9 36.9 Pulse 72 98 Resp 20 20 B/P (MAP) 127/65 (85) 126/89 Pulse Ox 100 100 O2 Delivery Room Air Room Air (ALMAZ MILLER MD) Blood Pressure Mean: 85 Departure Impression Primary Impression: Dental caries Additional Impressions: Headache Ventral hernia Disposition: HOME, SELF-CARE Condition: Stable Departure-Patient Inst. Decision time for Depature: 17:11 (ALLYN BARRERA APRN) [facility] [facility] [place] Primary Care Physician MADDISON CHAVIS (Family) Primary Care Physician Patient Instructions: Dental Pain (DC) Add. Discharge Instructions: Call your dentist for follow up grisel. All discharge instructions reviewed with patient and/or family. Voiced understanding. Scripts Penicillin V Potassium (Penicillin V Potassium) 500 Mg Tablet 500 MG PO QID, #28 TAB Prov: ALLYN BARRERA APRN 02/08/21 ATTENDING PHYSICIAN NOTE: I was physically present as attending physician in the emergency department dur ing the care of this patient, but I was not directly involved in the decision making or delivery of care for this patient. (BRUEGGEMANN,ALMAZ ALLYN DIAZ APRN Feb 08, 2021 17:11 ALMAZ MILLER MD Feb 08, 2021 18:46
[2021-02-08 17:12] LABS: BASOPHILS % (AUTO) 1 % (0-10); EOSINOPHILS # (AUTO) 0.1 10^3/uL (0.0-0.3); EOSINOPHILS % (AUTO) 1 % (0-10); HEMATOCRIT 41 % (35-52); HEMOGLOBIN 13.5 g/dL (11.5-16.0); LYMPHOCYTES # (AUTO) 1.7 10^3/uL (1.0-4.0); LYMPHOCYTES % (AUTO) 29 % (12-44); MEAN CORPUSCULAR HEMOGLOBIN 31 pg (25-34); MEAN CORPUSCULAR HGB CONC 33 g/dL (32-36); MEAN CORPUSCULAR VOLUME 94 fL (80-99); MEAN PLATELET VOLUME 10.8 fL (9.0-12.2); MONOCYTES # (AUTO) 0.4 10^3/uL (0.0-1.0); MONOCYTES % (AUTO) 6 % (0-12); NEUTROPHILS # (AUTO) 3.8 10^3/uL (1.8-7.8); NEUTROPHILS % (AUTO) 63 % (42-75); PLATELET COUNT 162 10^3/uL (130-400)
[2021-02-08] MEDS ORDERED: KETOROLAC 30 MG/ML VIAL IVP ONE (17:15)
[2021-02-08] MEDS ORDERED: PROCHLORPERAZINE 10 MG/2ML INJ (COMPAZINE) IV ONE ×2 (17:15)
[2021-02-08] MEDS ORDERED: diphenhydrAMINE 50 MG/ML INJ (BENADRYL) IVP ONE (17:15)
[2021-02-08] MEDS ORDERED: PENI500T PO (17:18)
[2021-02-08 17:22] LABS: ALBUMIN 4.5 GM/DL (3.2-4.5)
[2021-02-08 17:23] LABS: CHLORIDE 108 MMOL/L (98-107); POTASSIUM 3.9 MMOL/L (3.6-5.0); SODIUM 139 MMOL/L (135-145)
[2021-02-08 17:24] LABS: CALCIUM 8.6 MG/DL (8.5-10.1)
[2021-02-08 17:25] LABS: GLUCOSE 91 MG/DL (70-105); TOTAL PROTEIN 7.1 GM/DL (6.4-8.2)
[2021-02-08 17:26] LABS: CARBON DIOXIDE 20 MMOL/L (21-32)
[2021-02-08 17:27] LABS: BILIRUBIN,TOTAL 0.3 MG/DL (0.1-1.0)
[2021-02-08 17:28] LABS: ALKALINE PHOSPHATASE 86 U/L (40-136)
[2021-02-08 17:29] LABS: CREATININE SERUM 0.75 MG/DL (0.60-1.30); GFR ESTIMATED > 60
[2021-02-08 17:30] LABS: BUN/CREATININE RATIO 25
[2021-02-08 17:32] LABS: ALANINE AMINOTRANSFERASE 53 U/L (0-55)
--- NOTE | 2021-02-08 17:47 | Diagnostic Imaging Report ---
EXAMINATION: CT head without contrast. TECHNIQUE: Multiple contiguous axial images were obtained through the brain without the use of intravenous contrast. All CT scans use one or more of the following dose optimizing techniques: automated exposure control, MA and/or KvP adjustment based on patient size and exam type or iterative reconstruction. HISTORY: Headache. History of prior stroke. COMPARISON: 12/27/2020. FINDINGS: Old infarcts are again seen in the bilateral frontal lobes, left greater than right, and left parietal lobe. Prior craniotomy changes are noted in the left frontal region. No new areas of large acute territorial ischemia. No evidence of hemorrhage or mass. No hydrocephalus. The orbits are normal. Paranasal sinuses are normal. Mastoid air cells are clear. No soft tissue abnormality is seen. IMPRESSION: 1. No new large acute territorial ischemia, mass or hemorrhage. 2. Old infarcts are again seen in the bilateral frontal lobes and left parietal lobe. Dictated by: Dictated on workstation # [id number]
--- NOTE | 2021-02-08 17:50 | Diagnostic Imaging Report ---
PROCEDURE: CT abdomen and pelvis without contrast. TECHNIQUE: Multiple contiguous axial images were obtained through the abdomen and pelvis without the use of intravenous contrast. Auto Exposure Controls were utilized during the CT exam to meet ALARA standards for radiation dose reduction. INDICATION: Abdominal distention and pain. COMPARISON: None. FINDINGS: The heart is unremarkable. The lung bases are clear. The liver, spleen, pancreas, adrenal glands and kidneys have a normal appearance. The gallbladder is surgically absent. There is no pathologically enlarged mesenteric or retroperitoneal adenopathy. The bowel loops are nondilated. A moderate amount of stool is present. The appendix is not definitely visualized although no secondary signs of acute appendicitis are seen. There is no free fluid or free air. No acute osseous abnormalities. The urinary bladder is decompressed. There is no free air, loculated collection or adenopathy in the pelvis. IMPRESSION: Moderate amount of stool in the colon, likely representing constipation. No bowel obstruction, free fluid or free air. Dictated by: Dictated on workstation # [id number]
[2021-02-08] MEDS ORDERED: PENICILLIN V K 250 MG TAB PO ONE (18:00)
[2021-02-08] MEDS ORDERED: AMOXICILLIN 500 MG (POLYMOX) CAP PO STA (18:05)
[2021-02-08 18:15] VITALS: BP 126/89
== END 2021-02-08 18:15 | disposition home or self-care (01) ==
LOC: EDUNIT# 16:37 → ER 16:39
DX: K02.9 Dental caries, unspecified (principal); R51.9 Headache, unspecified; K43.9 Ventral hernia without obstruction or gangrene; F17.210 Nicotine dependence, cigarettes, uncomplicated; Z86.73 Personal history of transient ischemic attack (TIA), and cerebral infarction without residual deficits
CPT/HCPCS: 36415; 70450; 74176; 80053; 85025

== ENCOUNTER 2021-05-12 16:05 | Emergency (ER) | payer MEDICARE ==
[~2021-05-12] VITALS: Ht 170 cm; Wt 66.0 kg
[~2021-05-12 16:05] MED LIST changes: +PENI500T PO
--- OUTSIDE RECORDS SUMMARY | 2021-05-12 16:11 | XMS REPORT | Encounter Summary ---
Author Author [facility] Organization [facility] Address Unknown Phone Unavailable Care Team Providers Care [employer]er [employer] Name Role Phone Luis Gray PA-C PCP Clem Little MD 100 Reason for Referral * Pain Authorization (Routine) Referred By Contact Referred To Contact Status Reason Specialty Diagnoses / Procedures Jadon Main MD [address] [place] [address] New Request Diagnoses Spasticity P rocedures [facility] CHEMODENERVATION TRUNK MUSCLES Electronically signed by Jadon Main MD at * Pain Authorization (Routine) Referred By Contact Referred To Contact Status Reason Specialty Diagnoses / Procedures Jadon Main MD [address] [place] [address] New Request Diagnoses Spasticity P rocedures [facility] CHEMODENERVATION EXTREMITY MUSCLES Electronically signed by Jadon Main MD at Reason for Visit * Reason Comments Procedure Botox * Pain Authorization (Routine) Referred By Contact Referred To Contact Status Reason Specialty Diagnoses / Procedures Jadon Main MD [address] [place] [address] [facility] [address] [facility] [address] [place] [address] Authorized Rehabilitation Diagnoses Medicine Spasticity P rocedures [facility] SPINE CHEMODENERVATION TRUNK MUSCLES Encounter Details Care Team Description Date Type Department Jadon Main MD [address] [place] [address] Spasticity 04/30/2021 Procedure visit [facility]: [facility] [place] [address] [facility]. [address] [place] [address] Social History Date Tobacco Use Types Packs/Day Years Used Current Every Day Smoker Cigarettes 0.5 Smokeless Tobacco: Never Used Comments Alcohol Use Standard Drinks/Week Never 0 (1 standard drink = 0.6 o z pure alcohol) Alcohol Habits Answer Date Recorded How often do you have a drink containing alcohol? Never 02/27/2021 How many drinks containing alcohol do you have on No t asked a typical day when you are drinking? How often do you have six or more drinks on one Not asked occasion? Comment: Not asked Sex Assigned at Date Recorded Female 12/13/2019 7:39 AM CDT Date Recorded COVID-19 Exposure Response 04/30/2021 11:59 AM CDT In the last month, have you been in contact with No / Unsure someone who was confirmed or suspected to have Coronavirus / COVID-19? documented as of this encounter Last Filed Vital Signs Reading Time Taken Comments Vital Sign 101/54 04/30/2021 12:11 PM CDT Blood Pressure 90 04/30/2021 12:11 PM CDT Pulse 36.8 C (98.3 F) 04/30/2021 12:11 PM CDT Temperature 16 04/30/2021 12:11 PM CDT Respiratory Rate 96% 04/30/2021 12:11 PM CDT Oxygen Saturation - - Inhaled Oxygen Concentration - - Weight 170.2 cm (5' 7") 04/30/2021 12:11 PM CDT Height - - Body Mass Index documented in this encounter Functional Status Date of Assessment Functional Status Response 12/13/2019 Does the patient have a hearing impairment: No 12/13/2019 Does the patient have a visual impairment: Yes 12/13/2019 Does the patient have impaired ambulation: No 12/13/2019 Does the patient have an activity of daily living No (ADL) impairment: 12/13/2019 Does the patient have an instrumental activity of No daily living (IADL) impairment: Date of Assessment Cognitive Status Response 12/13/2019 Does the patient have a cognitive impairment: No documented as of this encounter Patient Instructions * Patient Instructions* Henok Aguilar RN - 04/30/2021 12:30 PM CDT It was a pleasure to see you in clinic today. For prescription refills please call your pharmacy 7 days in advance and they wi ll contact the appropriate doctor. Please call the scheduling line at [phone] to schedule, cancel, or change a n appointment. Mauro Aguilar RN, BSN, AMLA Clinical Nurse Coordinator Dr. Chuck Main/Physical Medicine and Rehabilitation [facility] [address] [place], [place] [address] Scheduling line: [phone] For further information on spine conditions, please visit [email or web address] documented in this encounter Procedure Notes * Jadon Main MD - 04/30/2021 12:30 PM CDT Associated Order(s): [facility] SPINE CHEMODENERVATION EXTREMITY MUSCLES Procedure(s): [facility] SP[facility] CHEMODENERVATION EXTREMITY MUSCLES; [facility] CHEM ODENERVATION TRUNK MUSCLES Pre-Procedure Diagnose(s): Spasticity Post-Procedure Diagnose(s): Spasticity Botulinum Toxin Injection Procedure Note Pre-Operative Diagnosis: Spastic hemiplegia right Post-Operative Diagnosis: Same Indications: Spasticity that adversely impacts function, ROM and pain Review of Systems: Date of last botulinum toxin injection (any body site): 01/28/21 Complications or side effects with last injections: No Current or recent fevers, chills, cough, difficulty breathing: No Currently taking antibiotics: No Currently taking any anti-coagulant medications: No EMR medication list was reviewed with the patient Recent medication changes: No Procedure Details: I have reviewed the diagnosis of Spastic hemiplegia right with Edith pedro have recommended injection of botulinium toxin for treatment of spasticity (in right upper and lower limbs), we discussed alternatives to this suggested natalia atment including continuing conservative treatment, or the option to decline natalia atment. The risks (pain, bleeding, infection, muscle weakness, allergic reacti on, dysphagia/dyspnea), benefits (spasticity reduction, pain relief), indication s, potential complications, and alternatives were explained to the patient. The opportunity to ask questions was provided and all questions were answered to the best of my ability. patient agree to proceed with the recommended treatment. The botulinum toxin was reconstituted in preservative free saline. A time out w as performed to locate and confirm the correct limb for injection. The skin was prepped with alcohol prior to each injection. EMG guidance was used to localize the desired muscles. The below listed amounts of botulinum toxin were injected into the below listed muscles with aspiration prior to each injection. Trunk/Upper limb: Right Muscle Right Latissimus dorsi 50 units Pectoralis major 50 units brachialis 50 units brachioradialis 50 units flexor digitorum superficialis 50 units flexor digitorum profundus 50 units Total UE: 300 units Lower limb: Right Muscle Right lateral gastrocnemius 60 units Medial gastrocnemius 60 units Lateral soleus 40 units Medial soleus 40 units Tibialis posterior 50 units Flexor digitorum longus 50 units Total LE: 300 units Botulinum toxin type: Botulinum Toxin Administration: Onabotulinumtoxina (Botox) Total botulinum toxin units injected: 600 units Total botulinum toxin units wasted: 0 units Dilution: 2:1 Plan: 1. Chemodenervation: Return for repeat botox injections in 3 months at same dose and dilution (2:1) 2. Oral antispasmodics: Continue long-standing baclofen dose 40 mg TID as initia ashely by historical provider. 3. Therapy/exercise: Continue stretching regimen with current therapist. Post-Botulinum Findings: The patient did tolerate the procedure well with minimal bleeding that resolved after brief pressure was applied. documented in this encounter Plan of Treatment Order Schedule Name Type Priority Associated Diag noses Expected: 04/30/2022, Expires: 2 [facility] Procedures Routine Spasticity CHEMODENERVATION EXTREMITY MUSCLES Expected: 04/30/2022, Expires: 2 [facility] Procedures Routine Spasticity CHEMODENERVATION TRUNK MUSCLES documented as of this encounter Procedures Comments Procedure Name Priority Date/Time Associated Diag nosis [facility] Routine 04/30/2021 Spasticity CHEMODENERVATION 12:30 PM CDT EXTREMITY MUSCLES [facility] SPINE Routine 04/30/2021 Spasticity CHEMODENERVATION 12:30 PM CDT EXTREMITY MUSCLES documented in this encounter Results * [facility] SPINE CHEMODENERVATION EXTREMITY MUSCLES (04/30/2021 12:30 PM CDT) Narrative Performed At Jadon Main MD 05/01/2021 12:05 PM OTHER OUTSIDE LAB Botulinum Toxin Injection Procedure Not e Pre-Operative Diagnosis: Spastic hemipl egia right Post-Operative Diagnosis: Same Indications: Spasticity that adversely impacts function, ROM and pain Review of Systems: Date of last botulinum toxin injection (any body site): 01/28/21 Complications or side effects with last injections: No Current or recent fevers, chills, cough , difficulty breathing: No Currently taking antibiotics: No Currently taking any anti-coagulant med ications: No EMR medication list was reviewed with t he patient Recent medication carroll ges: No Procedure Details: I have reviewed the diagnosis of Spasti c hemiplegia right with Edith Garcia and have recommended inj ection of botulinium toxin for treatment of spasticity (in right u pper and lower limbs), we discussed alternatives to this suggeste d treatment including continuing conservative treatment, or t he option to decline treatment. The risks (pain, bleeding, infection, muscle weakness, allergic reaction, dysphagia/ dyspnea), benefits (spasticity reduction, pain relief), in dications, potential complications, and alternatives were ex plained to the patient. The opportunity to ask questions was pr ovided and all questions were answered to the best of my ability . patient agree to proceed with the recommended treatment. The botulinum toxin was reconstituted i n preservative free saline. A time out was performed to l ocate and confirm the correct limb for injection. The skin was prepped with alcohol prior to each injection. EMG guidance was used to localize the desired muscles. The below listed pippa unts of botulinum toxin were injected into the below listed mus cles with aspiration prior to each injection. Trunk/Upper limb: Right Muscle Right Latissimus dorsi 50 units Pectoralis major 50 units brachialis 50 units brachioradialis 50 units flexor digitorum superficialis 50 units flexor digitorum profundus 50 units Total UE: 300 units Lower limb: Right Muscle Right lateral gastrocnemius 60 units Medial gastrocnemius 60 units Lateral soleus 40 units Medial soleus 40 units Tibialis posterior 50 units Flexor digitorum longus 50 units Total LE: 300 units Botulinum toxin type: Botulinum Toxin A dministration: Onabotulinumtoxina (Botox) Total botulinum toxin units injected: 6 00 units Total botulinum toxin units wasted: 0 u nits Dilution: 2:1 Plan: 1. Chemodenervation: Return for repeat botox injections in 3 months at same dose and dilution (2:1) 2. Oral antispasmodics: Continue long-s tanding baclofen dose 40 mg TID as initiated by historical provi sadi. 3. Therapy/exercise: Continue stretchin g regimen with current therapist. Post-Botulinum Findings: The patient did tolerate the procedure well with minimal bleeding that resolved after brief pressure was applied. Performing Organization Address City/State/ZIP Code P ash Number OTHER OUTSIDE LAB documented in this encounter Visit Diagnoses Diagnosis Spasticity Abnormal involuntary movements documented in this encounter Administered Medications Action Date Dose Rate Site Medication Order MAR Action 04/30/2021 12:31 PM CDT 600 Units Other ONAbotulinum toxin A (BOTOX) injection Given 600 Units 600 Units, Intramuscular, ONCE, 1 dose, On Karlene 04/30/21 at 1245 documented in this encounter Orders First Ordered Date Medications Ordered That Might Not Have Count Last Ordered Date Been Administered ONAbotulinum toxin A (BOTOX) injection 1 04/30/2021 600 Units First Ordered Date Procedures Count Last Ordered Date [facility] CHEMODENERVATION TRUNK 1 MUSCLES documented in this encounter Additional Health Concerns Assessment Noted Time A fall risk assessment has been completed for the pat ient 02/27/2021 2:16 PM CDT PHQ-2 Depression Total Score: 2 02/27/2021 10:36 AM CDT documented as of this encounter
--- OUTSIDE RECORDS SUMMARY | 2021-05-12 16:11 | XMS REPORT | Encounter Summary ---
Author Author [facility] Organization [facility] Address Unknown Phone Unavailable Care Team Providers Care Laminating Machine Tender Name Role Phone Luis Gray PA-C PCP Clem Little MD 100 Reason for Visit * Reason Comments Problem confirmed ectopic , hx of 3 strokes, heart surgeries, craniotomy, bleeding x2 weeks * Auth/Cert Referred By Contact Referred To Contact Status Reason Specialty Diagnoses / Procedures Diagnoses , ectopic, cornual or cervical Encounter Details Care Team Description Date Type Department Diane Szymanski MD [address] [facility] [place] [address] Nirali Meier MD [address] [place], [place] [id number] , ectopic, cornual or cervical 05/05/2021 Hospital Patient Care Unit B H56: - Encounter Main [place], Main 05/07/[address] [place] [address] [address] 5 [place] [address] Social History Date Tobacco Use [...] AM CDT Date Recorded COVID-19 Exposure Response 05/05/2021 6:20 PM CDT In the last month, have you been in contact with No / Unsure someone who was confirmed or suspected to have Coronavirus / COVID-19? documented as of this encounter Last Filed Vital Signs Reading Time Taken Comments Vital Sign 103/57 05/07/2021 8:23 AM CDT Blood Pressure 76 05/07/2021 8:23 AM CDT Pulse 37 C (98.6 F) 05/07/2021 8:19 AM CDT Temperature - - Respiratory Rate 99% 05/07/2021 8:23 AM CDT Oxygen Saturation - - Inhaled Oxygen Concentration 70.5 kg (155 lb 6.4 oz) 05/06/2021 3:20 AM CDT Weight - - Height 24.34 04/30/2021 12:11 PM CDT Body Mass Index documented in this encounter [...] impairment: No documented as of this encounter Discharge Summaries * Trav Acharya MD - 05/07/2021 11:11 AM CDT Discharge Summary Name: Edith Garcia Date Of : 1980 Age: 40 years Admit date: 05/05/2021 Discharge date: 05/07/2021 Discharge Attending: Dr. Goins Discharge Summary Completed By: rTav Acharya MD Service: Gynecology Reason for hospitalization: , ectopic, cornual or cervical [O00.80] Primary Discharge Diagnosis: Same as Above Hospital Diagnoses: Hospital Problems Active Problems * (Principal) , ectopic, cornual or cervical Significant Past Medical History Factor V Leiden (HCC) , ectopic, cornual or cervical Stroke (HCC) Allergies Metronidazole, Levofloxacin, and Prednisone Brief Hospital Course The patient was admitted and the following issues were addressed during this hos pitalization: (with pertinent details including admission exam/imaging/labs). Tessy Garcia is a 40 y.o. with a history of FVL on aspirin, history of mitral valve regurgitation due to IV drug abuse, and multiple strokes with R garland ed residual deficits who presented to the ED with 2 weeks of vaginal bleeding an d subsequently being diagnosed with a cervical ectopic by an outside P CP. She was hemodynamically stable with a Hgb of 13.5 in the ED. TVUS revealed a single ectopic at approximately 6w3d. She was admitted for further ma nagement of her cervical ectopic . Upon admission, she was made NPO. She experienced one gush of vaginal bleeding w ith a Hgb of 12.3 immediately after, but minimal bleeding and clotting subsequen tly. She was given one dose of IM methotrexate. JUAREZ was consulted - patient unde rwent intragestational sac lidocaine insertion and complete aspiration of the ec topic cervical with no complication, pending pathology report. On hosp ital day #2, patient's beta HCG dropped from 24,433 initially to 8,816. The deci mary kate was made to no longer provide therapeutic management of the ectopic pregnan cy. Patient continued to receive tylenol, oxycodone, and dilaudid for pain as ne eded. Her blood pressures were soft to the 90/40s mmHg despite a 1L LR bolus. Or thostatic vitals were negative and the patient was asymptomatic. She was dischar [facility] home in hemodynamically stable condition with appropriate follow-up with JUAREZ and serial bHCGs scheduled. Items Needing Follow Up Pending items or areas that need to be addressed at follow up: beta HCGs, vagina l bleeding/passage of clots Pending Labs and Follow Up Radiology Pending labs and/or radiology review at this time of discharge are listed below: if this area is blank, there are no items for review. Pending Labs Order Current Status PATHOLOGY SURGICAL < 5 SPECIMENS In process UA REFLEX LABEL In process Medications Medication List START taking these medications oxyCODONE 5 mg tablet; Commonly known as: ROXICODONE; Dose: 5 mg; Take one tablet by mouth every 6 hours as needed for Pain; Quantity: 5 tablet; Refills: 0 CHANGE how you take these medications acetaminophen SR 650 mg tablet; Commonly known as: TYLENOL; Dose: 650 mg; Take one tablet by mouth every 6 hours as needed for Pain.; Quantity: 100 tablet; Refills: 1; What changed: when to take this aspirin 81 mg chewable tablet; Dose: 81 mg; Refills: 0; What changed: Another medication with the same name was removed. Continue taking this medication, and follow the directions you see here. CONTINUE taking these medications baclofen 20 mg tablet; Commonly known as: LIORESAL; TAKE TWO TABLETS BY MOUTH THREE TIMES A DAY; Quantity: 90 tablet; Refills: 2 BENADRYL ALLERGY 25 mg tablet; Generic drug: diphenhydrAMINE hcl; Dose: 50 mg; For: an allergic reaction, sneezing; Refills: 0 bisacodyL 5 mg tablet; Commonly known as: DULCOLAX; Dose: 10-15 mg; Refills: 0 carBAMazepine XR 400 mg tablet; Commonly known as: TEGRETOL XR; TAKE ONE TABLET BY MOUTH TWICE A DAY; Quantity: 180 tablet; Refills: 1 docusate 100 mg capsule; Commonly known as: COLACE; Dose: 100-200 mg; Refills: 0 * escitalopram oxalate 10 mg tablet; Commonly known as: LEXAPRO; Dose: 10 mg; Refills: 0 * escitalopram oxalate 5 mg tablet; Commonly known as: LEXAPRO; Dose: 5 mg; Refills: 0 mirtazapine 45 mg tablet; Commonly known as: REMERON; Dose: 22.5 mg; Refills: 0 zonisamide 100 mg capsule; Commonly known as: ZONEGRAN; TAKE THREE CAPSULES BY MOUTH TWICE A DAY; Quantity: 540 capsule; Refills: 1 * This list has 2 medication(s) that are the same as other medications prescribed for you. Read the directions carefully, and ask your doctor or other care provider to review them with you. 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, [address] [facility] [phone] Jul 30, 2021 10:00 AM Procedure with Jadon Main MD Comprehensive [facility] Rehab Med: [facility], [facility] (Spine Center - [facility] & [facility]) [address], [address] [facility] [phone] Aug 13, 2021 11:30 AM Office visit with Vick Forde MD Epilepsy Center and Neurology Sleep Medicine: [facility] (Neurology) [address] [facility] [address] [facility] [address] Aug 13, 2021 3:30 PM Office visit with Vishnu Nation MD Cardiology: [facility], [address] ([facility] Exam) [address], [address] [facility] [phone] Additional appointment instructions: Dr. Chery will contact you for a follow-up appointment that is to occur within the next month. Consults, Procedures, Diagnostics, Micro, Pathology Consults: Reproductive endocrinology and infertility Surgical Procedures & Dates: intragestational sac lidocaine insertion and aspiration of ectopic cervical (05/06/21) Significant Diagnostic Studies, Micro and Procedures: noted in brief hospital co urse Significant Pathology: noted in brief hospital course Nutrition: No Dietitian Consult Discharge Disposition, Condition Patient Disposition: Home Condition at Discharge: Stable Code Status Code Status History Date Active Date Inactive Code Status Order ID 05/06/2021 [id number] 05/07/2021 1317 Full Code [id number] [facility] Inst[facility] Regular Diet You have no dietary restriction. Please continue with a healthy balanced diet. Report These Signs and Symptoms Please contact your doctor if you have any of the following symptoms: temperatu re higher than 100.4 degrees F, uncontrolled pain, persistent nausea and/or vomi ting, difficulty breathing, chest pain, severe abdominal pain, headache, unable to urinate, unable to have bowel movement, drainage with a foul odor, or bleedin g that soaks through more than one maxipad an hour for more than two hours in a row. Questions About Your Stay For questions or concerns regarding your hospital stay, call [phone]. Discharging attending physician: PATY GOINS [[id number]] Activity as Tolerated It is important to keep increasing your activity level after you leave the hosp ital. Moving around can help prevent blood clots, lung infection (pneumonia) an d other problems. Gradually increasing the number of times you are up moving ar ound will help you return to your normal activity level more quickly. Continue to increase the number of times you are up to the chair and walking daily to ret urn to your normal activity level. Begin to work toward your normal activity lev el at discharge Additional Discharge Instructions Vaginal bleeding after the procedure and as the ectopic is resolving is normal. We will follow-up with serial bHCG levels until this reaches zero, which would b e indicative of complete termination of the . Dr. Chery will call you t o follow-up on these labs, which can be done at [place] and sent to her. Additional Orders: Case Management, Supplies, Home Health Home Health/DME None Signed: Trav Acharya MD 05/09/2021 cc: Primary Care Physician: Luis Gray Verified Referring physicians: No ref. provider found Additional provider(s): Did we miss something? If additional records are needed, please fax a request on office letterhead to [phone]. Please include the patient's name, date of b irth, fax number and type of information needed. Additional request can be made by email at [email or web address]. For general questions of information about electronic records sharing, call [phone]. documented in this encounter Discharge Instructions * Appointments* Trav Acharya MD - 05/07/2021 10:[address] Chery will contact you for a follow-up appointment that is to occur within t he next month. documented in this encounter Medications at Time of Discharge Start Date End Date Medication Sig Dispensed Refills 05/07/2021 acetaminophen SR Take one 100 tablet 1 (TYLENOL) 650 mg tablet tablet by mouth every 6 hours as needed for Pain. aspirin 81 mg chewable Chew 81 mg by 0 tablet mouth daily. Take with food. 01/26/2021 baclofen (LIORESAL) 20 mg TAKE TWO 90 tablet 2 tablet TABLETS BY MOUTH THREE TIMES A DAY bisacodyL (DULCOLAX) 5 mg Take 10-15 mg 0 tablet by mouth three times weekly. 12/29/2020 carBAMazepine XR TAKE ONE 180 tablet 1 (TEGRETOL XR) 400 mg TABLET BY tablet MOUTH TWICE A DAY diphenhydrAMINE hcl Take 50 mg by 0 (BENADRYL ALLERGY) 25 mg mouth at tabletIndications: bedtime as allergic reaction, needed. sneezing Indications: an allergic reaction, sneezing docusate (COLACE) 100 mg Take 100-200 0 capsule mg by mouth daily as needed for Constipation. escitalopram oxalate Take 10 mg by 0 (LEXAPRO) 10 mg tablet mouth daily. Take with 5 mg for total dose of 15 mg. escitalopram oxalate Take 5 mg by 0 (LEXAPRO) 5 mg tablet mouth daily. mirtazapine (REMERON) 45 Take 22.5 mg 0 mg tablet by mouth at bedtime daily. 05/07/2021 oxyCODONE (ROXICODONE) 5 Take one 5 tablet 0 mg tablet tablet by mouth every 6 hours as needed for Pain 12/24/2020 zonisamide (ZONEGRAN) 100 TAKE THREE 540 capsule 1 mg capsule CAPSULES BY MOUTH TWICE A DAY documented as of this encounter Ordered Prescriptions Start Date End Date Prescription Sig Dispensed Refills 05/07/2021 oxyCODONE (ROXICODONE) 5 Take one 5 tablet 0 mg tablet tablet by mouth every 6 hours as needed for Pain 05/07/2021 acetaminophen SR Take one 100 tablet 1 (TYLENOL) 650 mg tablet tablet by mouth every 6 hours as needed for Pain. documented in this encounter Discharge Disposition Code Departure Means Destination Disposition Wheelchair Home or Self Care documented in this encounter Progress Notes * Nelly Walsh RN - 05/07/2021 11:11 AM CDT Discharge teaching and education went over with pt. Pt verbalized understanding and states no questions or concerns at this time. Pt discharged to [facility] via wheelchair with staff. * Paty Goins MD - 05/07/2021 4:56 AM CDT Gynecology Progress Note Subjective: Patient is more comfortable this morning. Some cramping endorsed. Minimal vagina l bleeding. Tolerating ambulation. NPO - no nausea or vomiting. Pt is voiding an d having flatus. Pain is well controlled on oral pain medications. Pt denies fev er or chills, SOB or CP. Objective: Patient Vitals for the past 24 hrs: BP Temp Pulse SpO2 05/07/21 0335 97/47 36.5 C (97.7 F) 55 98 % 05/06/21 2338 102/42 36.8 C (98.2 F) 61 98 % 05/06/21 1955 105/48 36.8 C (98.2 F) 85 99 % 05/06/21 1618 92/46 36.7 C (98.1 F) 60 100 % 05/06/21 1240 93/50 36.5 C (97.7 F) 60 100 % 05/06/21 1218 94/41 36.7 C (98.1 F) 61 100 % 05/06/21 0836 101/43 36.7 C (98.1 F) 63 100 % Physical Exam: General: No acute distress. Lungs: No labored breathing Abdomen: Non-distended. Soft. NTTP. Lab Review: 24-hour labs: Results for orders placed or performed during the hospital encounter of 05/05/21 (from the past 24 hour(s)) CBC AND DIFF Collection Time: 05/06/21 6:09 AM Result Value Ref Range White Blood Cells 5.9 4.5 - 11.0 K/UL RBC 3.80 (L) 4.0 - 5.0 M/UL Hemoglobin 11.8 (L) 12.0 - 15.0 GM/DL Hematocrit 35.2 (L) 36 - 45 % MCV 92.5 80 - 100 FL MCH 31.1 26 - 34 PG MCHC 33.6 32.0 - 36.0 G/DL RDW 12.9 11 - 15 % Platelet Count 143 (L) 150 - 400 K/UL MPV 8.3 7 - 11 FL Neutrophils 56 41 - 77 % Lymphocytes 33 24 - 44 % Monocytes 8 4 - 12 % Eosinophils 2 0 - 5 % Basophils 1 0 - 2 % Absolute Neutrophil Count 3.32 1.8 - 7.0 K/UL Absolute Lymph Count 1.98 1.0 - 4.8 K/UL Absolute Monocyte Count 0.49 0 - 0.80 K/UL Absolute Eosinophil Count 0.09 0 - 0.45 K/UL Absolute Basophil Count 0.05 0 - 0.20 K/UL COMPREHENSIVE METABOLIC PANEL Collection Time: 05/06/21 6:09 AM Result Value Ref Range Sodium 138 137 - 147 MMOL/L Potassium 3.7 3.5 - 5.1 MMOL/L Chloride 111 (H) 98 - 110 MMOL/L Glucose 96 70 - 100 MG/DL Blood Urea Nitrogen 9 7 - 25 MG/DL Creatinine 0.70 0.4 - 1.00 MG/DL Calcium 8.6 8.5 - 10.6 MG/DL Total Protein 5.9 (L) 6.0 - 8.0 G/DL Total Bilirubin 0.6 0.3 - 1.2 MG/DL Albumin 4.0 3.5 - 5.0 G/DL Alk Phosphatase 51 25 - 110 U/L AST (SGOT) 15 7 - 40 U/L CO2 19 (L) 21 - 30 MMOL/L ALT (SGPT) 14 7 - 56 U/L Anion Gap 8 3 - 12 eGFR Non >60 >60 mL/min eGFR >60 >60 mL/min BETA-HCG Collection Time: 05/06/21 6:09 AM Result Value Ref Range Beta-HCG,Serum 24,433 (H) <5 U/L TVUS (05/05/21) Impression: 1. Single cervical ectopic , with an estimated gestational age of 6 weeks, 3 days. There is a very small subchorionic hemorrhage noted along the inferior aspect of the gestational sac. 2. Mild heterogeneous material within the residual cavity above the cervical ectopic, most consistent with blood products. 3. 3 ovarian cystic lesions, likely a corpus luteum and 2 additional prominent follicle/benign cysts. Assessment: 40 y.o. with history relevant for FVL on baby ASA, h/o MVR 2/2 IVDA, and multiple strokes w/ R sided residual deficits who was transferred from OSH afte r being diagnosed with cervical ectopic w/ +FCA, now POD#1 s/p intrage stational sac lidocaine insertion and aspiration of ectopic cervical . Patient continues to be HDS (though soft blood pressures) with minimal vaginal bleeding. Plan: Cervical ectopic - VSS - Hgb 13.5 -> 400 cc blood loss -> 12.3 -> 11.8 - S/p 1L LR overnight for soft blood pressures 90/40s - Pad counts - Pain: Tylenol, oxy and Dilaudid prn - S/p 1 dose of MTX 1mg/kg IM - S/p intragestational sac lidocaine insertion and complete aspiration of ectopi c cervical (05/07) - No complications - Pending pathology report - bHCG 24,433 -> 8.816 Anxiety - lexapro 15mg daily - Atarax 25mg PO BID PRN Disposition: Significantly downtrending bHCG s/p intragestational sac lidocaine insertion and aspiration of ectopic cervical (05/07) - no need for furt her therapeutic management of ectopic . Will need follow-up with Dr. B[facility], but pt lives in [place], [place]. Plan for discharge today with plan for seria l bHCGs until complete resolution. D/w Dr. Briseida Acharya MD Obstetrics and Gynecology, PGY-1 Please page the Gynecology pager at [phone] with any questions or concerns. Thank you. ATTESTATION I saw the patient, discussed the plan of care with the resident, reviewed the hi story and exam documented by the resident. I concur with the above assessment a nd plan. Ms Edith Garcia is a 40 y.o. admitted with cervical ectopic s/p intr agestational sac injection. Significant decrease in HCG overnight, minimal bleed ing. Stable to go home with outpatient f/u. Discussed options for control with her multiple comorbidities, she prefers Depo which may be reasonable in the short term but not a great [facility] consideration give her hx of stroke. Staff name: Paty Goins MD Date: 05/07/2021 * Shawna Jenkins RN - 05/07/2021 4:54 AM CDT 0455-Pt had uneventful night. Continues to be up with assist X2. Pt has had ve ry minimal bleeding throughout the night; see I/O. Voiding without incident. W ill continue to monitor. * Maribell Roblero - 05/06/2021 12:52 PM CDT 1252- IN FILE OPERATOR paged "Pt BP 94/41 with HR 61. Recheck BP 93/50 with HR 60. All other vitals WNL. Pt rates pain 8/10 cramping. Pt is due to receive dilaudid. Can she receive with soft BP? Or do you want me to hold dilaudid dose? Pt declines oxyco done." 1340- Per MD Booth, OK to give dilaudid at this time. 1415- [facility] notifying "This patient has signs and symptoms / risk factors suggest katie of sepsis". IN FILE OPERATOR paged. No new orders received at this time. * Paty Goins MD - 05/06/2021 8:29 AM CDT Gynecology Progress Note Subjective: Patient is very anxious this morning and tearful regarding her diagnosis. Tolera ting ambulation. NPO - no nausea or vomiting. Pt is voiding and having flatus. P ain is well controlled on oral pain medications. Pt denies fever or chills, SOB or CP. She still has some scant bleeding today with minimal clotting. Objective: Patient Vitals for the past 24 hrs: BP Temp Pulse SpO2 Weight 05/06/21 0325 106/51 36.4 C (97.5 F) 65 100 % 05/06/21 0320 70.5 kg (155 lb 6.4 oz) 05/06/21 0118 113/64 36.7 C (98.1 F) 79 98 % 05/06/21 0034 106/47 36.6 C (97.9 F) 69 100 % 05/05/21 2230 117/61 100 % 05/05/21 2203 102/48 99 % 05/05/21 2030 120/62 100 % 05/05/21 1822 (!) 147/97 37 C (98.6 F) 100 % Physical Exam: General: No acute distress. Lungs: No labored breathing Abdomen: Non-distended. Lab Review: 24-hour labs: Results for orders placed or performed during the hospital encounter of 05/05/21 (from the past 24 hour(s)) CBC AND DIFF Collection Time: 05/05/21 8:54 PM Result Value Ref Range White Blood Cells 6.3 4.5 - 11.0 K/UL RBC 4.20 4.0 - 5.0 M/UL Hemoglobin 13.5 12.0 - 15.0 GM/DL Hematocrit 38.8 36 - 45 % MCV 92.4 80 - 100 FL MCH 32.2 26 - 34 PG MCHC 34.8 32.0 - 36.0 G/DL RDW 13.0 11 - 15 % Platelet Count 163 150 - 400 K/UL MPV 8.7 7 - 11 FL Neutrophils 56 41 - 77 % Lymphocytes 34 24 - 44 % Monocytes 8 4 - 12 % Eosinophils 1 0 - 5 % Basophils 1 0 - 2 % Absolute Neutrophil Count 3.58 1.8 - 7.0 K/UL Absolute Lymph Count 2.11 1.0 - 4.8 K/UL Absolute Monocyte Count 0.47 0 - 0.80 K/UL Absolute Eosinophil Count 0.07 0 - 0.45 K/UL Absolute Basophil Count 0.05 0 - 0.20 K/UL MDW (Monocyte Distribution Width) 17.0 <20.7 PROTIME INR (PT) Collection Time: 05/05/21 8:54 PM Result Value Ref Range INR 1.1 0.8 - 1.2 PTT (APTT) Collection Time: 05/05/21 8:54 PM Result Value Ref Range APTT 29.2 24.0 - 36.5 SEC TYPE & CROSSMATCH Collection Time: 05/05/21 8:54 PM Result Value Ref Range Units Ordered 0 Crossmatch Expires 05/08/2021,0745 Record Check 2ND TYPE REQUIRED ABO/RH(D) A POS Antibody Screen NEG Electronic Crossmatch YES COMPREHENSIVE METABOLIC PANEL Collection Time: 05/05/21 8:54 PM Result Value Ref Range Sodium 140 137 - 147 MMOL/L Potassium 3.8 3.5 - 5.1 MMOL/L Chloride 110 98 - 110 MMOL/L Glucose 88 70 - 100 MG/DL Blood Urea Nitrogen 10 7 - 25 MG/DL Creatinine 0.75 0.4 - 1.00 MG/DL Calcium 9.5 8.5 - 10.6 MG/DL Total Protein 7.0 6.0 - 8.0 G/DL Total Bilirubin 0.4 0.3 - 1.2 MG/DL Albumin 4.7 3.5 - 5.0 G/DL Alk Phosphatase 59 25 - 110 U/L AST (SGOT) 17 7 - 40 U/L CO2 20 (L) 21 - 30 MMOL/L ALT (SGPT) 16 7 - 56 U/L Anion Gap 10 3 - 12 eGFR Non >60 >60 mL/min eGFR >60 >60 mL/min MAGNESIUM Collection Time: 05/05/21 8:54 PM Result Value Ref Range Magnesium 2.2 1.6 - 2.6 mg/dL URINALYSIS DIPSTICK REFLEX TO CULTURE Collection Time: 05/05/21 8:54 PM Specimen: Urine Result Value Ref Range Color,UA YELLOW Turbidity,UA 2+ (A) CLEAR-CLEAR Specific [place]-Urine 1.012 1.003 - 1.035 pH,UA 7.0 5.0 - 8.0 Protein,UA 2+ (A) NEG-NEG Glucose,UA NEG NEG-NEG Ketones,UA NEG NEG-NEG Bilirubin,UA NEG NEG-NEG Blood,UA 3+ (A) NEG-NEG Urobilinogen,UA NORMAL NORM-NORMAL Nitrite,UA NEG NEG-NEG Leukocytes,UA NEG NEG-NEG Urine Ascorbic Acid, UA NEG NEG-NEG URINALYSIS MICROSCOPIC REFLEX TO CULTURE Collection Time: 05/05/21 8:54 PM Specimen: Urine Result Value Ref Range WBCs,UA NONE 0 - 2 /HPF RBCs,UA NONE 0 - 3 /HPF Comment,UA Criteria for reflex to culture are WBC>10, Positive Nitrite, and/or >=+1 leukocytes. If quantity is not sufficient, an addendum will follow. Squamous Epithelial Cells 10-20 0 - 5 BETA-HCG Collection Time: 05/05/21 8:54 PM Result Value Ref Range Beta-HCG,Serum 25,064 (H) <5 U/L BLOOD TYPE CONFIRMATION - ORDER ONLY IF REQUESTED BY LAB Collection Time: 05/05/21 10:02 PM Result Value Ref Range ABO/RH(D) A POS COVID-19 (SARS-COV-2) PCR Collection Time: 05/05/21 11:55 PM Specimen: Nasopharyngeal; Flocked Swab Result Value Ref Range COVID-19 (SARS-CoV-2) PCR Source FLOCKED SWAB NASOPHARYNGEAL COVID-19 (SARS-CoV-2) PCR NOT DETECTED DN-NOT DETECTED CBC AND DIFF Collection Time: 05/06/21 1:40 AM Result Value Ref Range White Blood Cells 6.5 4.5 - 11.0 K/UL RBC 3.85 (L) 4.0 - 5.0 M/UL Hemoglobin 12.3 12.0 - 15.0 GM/DL Hematocrit 35.7 (L) 36 - 45 % MCV 92.8 80 - 100 FL MCH 31.8 26 - 34 PG MCHC 34.3 32.0 - 36.0 G/DL RDW 12.9 11 - 15 % Platelet Count 149 (L) 150 - 400 K/UL MPV 8.2 7 - 11 FL Neutrophils 55 41 - 77 % Lymphocytes 34 24 - 44 % Monocytes 8 4 - 12 % Eosinophils 2 0 - 5 % Basophils 1 0 - 2 % Absolute Neutrophil Count 3.61 1.8 - 7.0 K/UL Absolute Lymph Count 2.18 1.0 - 4.8 K/UL Absolute Monocyte Count 0.51 0 - 0.80 K/UL Absolute Eosinophil Count 0.10 0 - 0.45 K/UL Absolute Basophil Count 0.07 0 - 0.20 K/UL CBC AND DIFF Collection Time: 05/06/21 6:09 AM Result Value Ref Range White Blood Cells 5.9 4.5 - 11.0 K/UL RBC 3.80 (L) 4.0 - 5.0 M/UL Hemoglobin 11.8 (L) 12.0 - 15.0 GM/DL Hematocrit 35.2 (L) 36 - 45 % MCV 92.5 80 - 100 FL MCH 31.1 26 - 34 PG MCHC 33.6 32.0 - 36.0 G/DL RDW 12.9 11 - 15 % Platelet Count 143 (L) 150 - 400 K/UL MPV 8.3 7 - 11 FL Neutrophils 56 41 - 77 % Lymphocytes 33 24 - 44 % Monocytes 8 4 - 12 % Eosinophils 2 0 - 5 % Basophils 1 0 - 2 % Absolute Neutrophil Count 3.32 1.8 - 7.0 K/UL Absolute Lymph Count 1.98 1.0 - 4.8 K/UL Absolute Monocyte Count 0.49 0 - 0.80 K/UL Absolute Eosinophil Count 0.09 0 - 0.45 K/UL Absolute Basophil Count 0.05 0 - 0.20 K/UL COMPREHENSIVE METABOLIC PANEL Collection Time: 05/06/21 6:09 AM Result Value Ref Range Sodium 138 137 - 147 MMOL/L Potassium 3.7 3.5 - 5.1 MMOL/L Chloride 111 (H) 98 - 110 MMOL/L Glucose 96 70 - 100 MG/DL Blood Urea Nitrogen 9 7 - 25 MG/DL Creatinine 0.70 0.4 - 1.00 MG/DL Calcium 8.6 8.5 - 10.6 MG/DL Total Protein 5.9 (L) 6.0 - 8.0 G/DL Total Bilirubin 0.6 0.3 - 1.2 MG/DL Albumin 4.0 3.5 - 5.0 G/DL Alk Phosphatase 51 25 - 110 U/L AST (SGOT) 15 7 - 40 U/L CO2 19 (L) 21 - 30 MMOL/L ALT (SGPT) 14 7 - 56 U/L Anion Gap 8 3 - 12 eGFR Non >60 >60 mL/min eGFR >60 >60 mL/min BETA-HCG Collection Time: 05/06/21 6:09 AM Result Value Ref Range Beta-HCG,Serum 24,433 (H) <5 U/L TVUS (05/05/21) Impression: 1. Single cervical ectopic , with an estimated gestational age of 6 weeks, 3 days. There is a very small subchorionic hemorrhage noted along the inferior aspect of the gestational sac. 2. Mild heterogeneous material within the residual cavity above the cervical ectopic, most consistent with blood products. 3. 3 ovarian cystic lesions, likely a corpus luteum and 2 additional prominent follicle/benign cysts. Assessment: 40 y.o. 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 Patient continues to be HDS, but very anxious at bedside. Plan: Cervical ectopic - VSS - Hgb 13.5 -> 400 cc blood loss -> 12.3 -> 11.8 - Pad counts, Apply heat - NPO - Pain: Tylenol, oxy and Dilaudid prn - Plan to administer MTX per ACOG guidelines for treatment of cervical ectopic p regnancy - Fixed multiple dose regimen: - MTX 1mg/kg IM days 1, 3, 5, 7 (Day 1 is today 05/06) - Folinic acid 0.1 mg/kg IM days 2, 4, 6, 8 - HCG levels on MTX days (1, 3, 5, 7) until hCG has decreased by 15% from its pr evious measurement [ ] Will consult [facility] regarding KCL injections, which has shown to have increased efficacy in management of cervical ectopic pregnancies in particular Anxiety - lexapro 15mg daily - Atarax 25mg PO BID PRN Disposition: pending treatment course. Will need [facility] follow-up, but pt lives in [place], [place]. D/w Dr. Briseida Acharya MD Obstetrics and Gynecology, PGY-1 Please page the Gynecology pager at [phone] with any questions or concerns. Thank you. ATTESTATION I saw the patient, discussed the plan of care with the resident, reviewed the hi story and exam documented by the resident. I concur with the above assessment a nd plan. Ms Edith Garcia is a 40 y.o. HD#2 for cervical ectopic . Now s/p inje ction and aspiration of gestational sac with Dr. Chery. Will curbside her cardio logist and neurologist at her request. Will continue inpatient status for monito ring for bleeding. Staff name: Paty Goins MD Date: 05/06/2021 * Janene Shelton RN - 05/06/2021 2:54 AM CDT 0115: Patient's brief noted to be saturated with blood. Assisted to bathroom & patient had a gush of bleeding upon sitting down, measuring 390 ml. 0118: Paged IN FILE OPERATOR to notify of bleeding & patient's report of severe ABD cramping. 0130: Received order for STAT CBC & 1x dose 0.5 mg IV Dilaudid. 0147: CBC sent to lab & IV Dilaudid administered. 0217: Paged IN FILE OPERATOR per patient request for home HS meds to restart & to request order for diet. Hgb stable, 12.3. 0439: Clarified NPO status with Dr. Centeno. OK for sips with meds. Continuing to monitor. documented in this encounter Procedure Notes * Abi Chery MD - 05/06/2021 12:02 PM CDT PROCEDURE REPORT Name: Edith Garcia is a 40 y.o. female : 1980 MRN#: [id number] DATE OF PROCEDURE: PROCEDURE: intragestational sac lidocaine insertion and aspiration of ectopic ce rvical Preoperative Diagnosis: cervical ectopic Description and Findings of Operative Procedure: On speculum exam, there were no abnormalities in her vaginal epithelium. Her cer vix was easily visualized and dilated to approximately 2 centimeters - there was POC visible at external os. The cervix and vagina was then cleansed with Betadi ne x 3. A single-tooth tenaculum was placed on the anterior lip of the cervix. A cervical block was given with 1% lidocaine 5 cc's at 8 and 4 o'clock. All instr uments were removed and a vaginal probe was inserted and a cervical ectopic was visualized with ultrasound. Using a 20-gauge spinal needle, we injected 3 cc's of lidocaine into the gestational sac. We then aspirated about 10 cc's of fluid. Under ultrasound guidance, we visualized the resolution of the gestational sac. The vaginal probe and needle were removed. Using ringed forceps, we removed the remaining POC at the cervix. Diluted vasopressin was inserted in the cervix at 8 and 4 o'clock. We placed silver nitrate into the cervical os as well. Bleeding was minimal. All instruments were removed from the vagina. The POC was sent to pathology. The patient tolerated the procedure well. Estimated Blood Loss: [address] Chery performed the entirety of the procedure. Trav Acharya MD Pager [phone] documented in this encounter Consult Notes * Nirali Meier MD - 05/05/2021 10:20 PM CDT Associated Order(s): CONSULT OUTSIDE SALES REPRESENTATIVE INSURANCE PHYSICIAN Gynecology Consult History and Physical Examination Edith Garcia Admission Date: 05/05/2021 Assessment: 40 y.o. at approximately 8 wga by LMP presented to ED after VB x 2 week s and being diagnosed with cervical ectopic by outside PCP, consult fo r management. Pertinent MedHx: FVL on ASA, H/o MVR 2/2 IVDA, multiple strokes w/ R sided resid ual deficits Plan: - Hemodynamically stable. Hgb stable at 13.5. VSS. - Admit - Pad counts, Apply heat - NPO - Ordered Home meds - Pain: Tylenol, oxy and Dilaudid prn - Plan to administer MTX per ACOG guidelines for treatment of cervical ectopic p regnancy. Consider intramniotic injection of KCl. Will need to consult JUAREZ. - Fixed multiple dose regimen: (see ACOG PB) - MTX 1mg/kg IM days 1, 3, 5, 7 - Folinic acid 0.1 mg/kg IM days 2, 4, 6, 8 - HCG levels on MTX days (1, 3, 5, 7) until hCG has decreased by 15% from its pr evious measurement - Needs EPC follow-up. Of note, pt lives in [place], [place]. D/w and s/w Dr. Renea Centeno MD PGY-2 Obstetrics and Gynecology Please page the Gynecology pager at [phone] with any questions or concerns. Thank you for allowing us to participate in the care of your patient. ATTESTATION I personally observed the resident performing the E/M, discussed case with resid ent, and concur with resident documentation of history, physical assessment and treatment plan unless otherwise noted. Staff name: Nirali Meier MD Date: 05/07/2021 Reason for Consult: Cervical ectopic History of Present Illness: Edith Garcia is a 40 y.o. at approximately 8 wga by presenting to ED a fter missed period and abnormal VB since 04/20. Patient reports that she has norm eduardoy has her period hte 1st of every month, however, this month she missed her p eriod, but begna to have spotting midway through the month, followed by "period flow" that began on 04/20. This AM, she noticed bright red blood, so went to her PCP for evaluation. There, she found out that she was , but that it was an ectopic , and was sent to Ed for further evaluation. Patient did not know she was . reports intermittent strong cramps. 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 H/o hep A/B Menstrual Cycles: Regular PmHx: Medical History: Diagnosis Date Factor V Leiden (HCC) , ectopic, cornual or cervical Stroke (HCC) PsHx: Surgical History: Procedure Laterality Date SECTION, LOW TRANSVERSE CHOLECYSTECTOMY CRANIOTOMY FmHx: No family history on file. Social: , feels safe at home. Social History Socioeconomic History Marital status: Single Spouse name: Not on file Number of children: Not on file Years of education: Not on file Highest education level: Not on file Occupational History Not on file Tobacco Use Smoking status: Current Every Day Smoker Packs/day: 0.50 Types: Cigarettes Smokeless tobacco: Never Used Substance and Sexual Activity Alcohol use: Never Drug use: Never Sexual activity: Yes Partners: Male Other Topics Concern Not on file Social History Narrative Not on file Allergies: Metronidazole, Levofloxacin, and Prednisone Medications: No current facility-administered medications on file prior to encounter. Current Outpatient Medications on File Prior to Encounter Medication Sig Dispense Refill aspirin 81 mg chewable tablet Chew 81 mg by mouth daily. Take with food. aspirin-calcium carbonate 81 mg-300 mg calcium(777 mg) tab Take 81 mg by tammy th daily. baclofen (LIORESAL) 20 mg tablet TAKE TWO TABLETS BY MOUTH THREE TIMES A DAY 90 tablet 2 carBAMazepine XR (TEGRETOL XR) 400 mg tablet TAKE ONE TABLET BY MOUTH TWICE A DAY 180 tablet 1 escitalopram oxalate (LEXAPRO) 10 mg tablet Take 15 mg by mouth daily. hydrOXYzine HCL (ATARAX) 25 mg tablet Take one tablet by mouth twice daily a s needed for Itching. 20 tablet 0 mirtazapine (REMERON) 45 mg tablet Take 22.5 mg by mouth at bedtime daily. zonisamide (ZONEGRAN) 100 mg capsule TAKE THREE CAPSULES BY MOUTH TWICE A DA Y 540 capsule 1 Physical Exam: Vitals: 05/05/21 1822 05/05/21 2030 05/05/21 2203 BP: (!) 147/97 120/62 102/48 BP Source: Arm, Left Upper Temp: 37 C (98.6 F) SpO2: 100% 100% 99% Gen: NAD CV: RRR, no appreciable murmurs Chest: Unlabored, CTAB Abd: soft, mildly ttp in BLQ Ext: No LE edema, nttp LE : normal appearing external genitalia, no blood noted on labia SSE: no blood in vaginal vault, cervic approximately 2 cm dilated with intact ge stational sac bulging through cervical os SVE: did not perform due to concern for rupturing sac Lab/Radiology/Other Diagnostic Tests: 24-hour labs: Results for orders placed or performed during the hospital encounter of 05/05/21 (from the past 24 hour(s)) CBC AND DIFF Collection Time: 05/05/21 8:54 PM Result Value Ref Range White Blood Cells 6.3 4.5 - 11.0 K/UL RBC 4.20 4.0 - 5.0 M/UL Hemoglobin 13.5 12.0 - 15.0 GM/DL Hematocrit 38.8 36 - 45 % MCV 92.4 80 - 100 FL MCH 32.2 26 - 34 PG MCHC 34.8 32.0 - 36.0 G/DL RDW 13.0 11 - 15 % Platelet Count 163 150 - 400 K/UL MPV 8.7 7 - 11 FL Neutrophils 56 41 - 77 % Lymphocytes 34 24 - 44 % Monocytes 8 4 - 12 % Eosinophils 1 0 - 5 % Basophils 1 0 - 2 % Absolute Neutrophil Count 3.58 1.8 - 7.0 K/UL Absolute Lymph Count 2.11 1.0 - 4.8 K/UL Absolute Monocyte Count 0.47 0 - 0.80 K/UL Absolute Eosinophil Count 0.07 0 - 0.45 K/UL Absolute Basophil Count 0.05 0 - 0.20 K/UL MDW (Monocyte Distribution Width) 17.0 <20.7 PROTIME INR (PT) Collection Time: 05/05/21 8:54 PM Result Value Ref Range INR 1.1 0.8 - 1.2 PTT (APTT) Collection Time: 05/05/21 8:54 PM Result Value Ref Range APTT 29.2 24.0 - 36.5 SEC TYPE & CROSSMATCH Collection Time: 05/05/21 8:54 PM Result Value Ref Range Units Ordered 0 Crossmatch Expires 05/08/2021,2359 Record Check 2ND TYPE REQUIRED ABO/RH(D) A POS Antibody Screen NEG Electronic Crossmatch YES COMPREHENSIVE METABOLIC PANEL Collection Time: 05/05/21 8:54 PM Result Value Ref Range Sodium 140 137 - 147 MMOL/L Potassium 3.8 3.5 - 5.1 MMOL/L Chloride 110 98 - 110 MMOL/L Glucose 88 70 - 100 MG/DL Blood Urea Nitrogen 10 7 - 25 MG/DL Creatinine 0.75 0.4 - 1.00 MG/DL Calcium 9.5 8.5 - 10.6 MG/DL Total Protein 7.0 6.0 - 8.0 G/DL Total Bilirubin 0.4 0.3 - 1.2 MG/DL Albumin 4.7 3.5 - 5.0 G/DL Alk Phosphatase 59 25 - 110 U/L AST (SGOT) 17 7 - 40 U/L CO2 20 (L) 21 - 30 MMOL/L ALT (SGPT) 16 7 - 56 U/L Anion Gap 10 3 - 12 eGFR Non >60 >60 mL/min eGFR >60 >60 mL/min MAGNESIUM Collection Time: 05/05/21 8:54 PM Result Value Ref Range Magnesium 2.2 1.6 - 2.6 mg/dL URINALYSIS DIPSTICK REFLEX TO CULTURE Collection Time: 05/05/21 8:54 PM Specimen: Urine Result Value Ref Range Color,UA YELLOW Turbidity,UA 2+ (A) CLEAR-CLEAR Specific [place]-Urine 1.012 1.003 - 1.035 pH,UA 7.0 5.0 - 8.0 Protein,UA 2+ (A) NEG-NEG Glucose,UA NEG NEG-NEG Ketones,UA NEG NEG-NEG Bilirubin,UA NEG NEG-NEG Blood,UA 3+ (A) NEG-NEG Urobilinogen,UA NORMAL NORM-NORMAL Nitrite,UA NEG NEG-NEG Leukocytes,UA NEG NEG-NEG Urine Ascorbic Acid, UA NEG NEG-NEG URINALYSIS MICROSCOPIC REFLEX TO CULTURE Collection Time: 05/05/21 8:54 PM Specimen: Urine Result Value Ref Range WBCs,UA NONE 0 - 2 /HPF RBCs,UA NONE 0 - 3 /HPF Comment,UA Criteria for reflex to culture are WBC>10, Positive Nitrite, and/or >=+1 leukocytes. If quantity is not sufficient, an addendum will follow. Squamous Epithelial Cells 10-20 0 - 5 BETA-HCG Collection Time: 05/05/21 8:54 PM Result Value Ref Range Beta-HCG,Serum 25,064 (H) <5 U/L BLOOD TYPE CONFIRMATION - ORDER ONLY IF REQUESTED BY LAB Collection Time: 05/05/21 10:02 PM Result Value Ref Range ABO/RH(D) A POS COVID-19 (SARS-COV-2) PCR Collection Time: 05/05/21 11:55 PM Specimen: Nasopharyngeal; Flocked Swab Result Value Ref Range COVID-19 (SARS-CoV-2) PCR Source FLOCKED SWAB NASOPHARYNGEAL COVID-19 (SARS-CoV-2) PCR NOT DETECTED DN-NOT DETECTED CBC AND DIFF Collection Time: 05/06/21 1:40 AM Result Value Ref Range White Blood Cells 6.5 4.5 - 11.0 K/UL RBC 3.85 (L) 4.0 - 5.0 M/UL Hemoglobin 12.3 12.0 - 15.0 GM/DL Hematocrit 35.7 (L) 36 - 45 % MCV 92.8 80 - 100 FL MCH 31.8 26 - 34 PG MCHC 34.3 32.0 - 36.0 G/DL RDW 12.9 11 - 15 % Platelet Count 149 (L) 150 - 400 K/UL MPV 8.2 7 - 11 FL Neutrophils 55 41 - 77 % Lymphocytes 34 24 - 44 % Monocytes 8 4 - 12 % Eosinophils 2 0 - 5 % Basophils 1 0 - 2 % Absolute Neutrophil Count 3.61 1.8 - 7.0 K/UL Absolute Lymph Count 2.18 1.0 - 4.8 K/UL Absolute Monocyte Count 0.51 0 - 0.80 K/UL Absolute Eosinophil Count 0.10 0 - 0.45 K/UL Absolute Basophil Count 0.07 0 - 0.20 K/UL Point of Care Testing: Glucose: 88 (05/05/212053) documented in this encounter ED Notes * Marisabel Cope RN - 05/06/2021 12:07 AM CDT Report given to RN on [id number] * Diane Szymanski MD - 05/05/2021 8:33 PM CDT Associated Order(s): Critical Care Images from the original note were not included. Edith Garcia is a 40 y.o. female. 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 Sara ent reports that on 04/20/2021 she had several days of spotting. 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 [facility] normal [facility] was 03/10/2021. She denies other abnor mal vaginal discharge. This morning patient began having heavy vaginal bleeding that has worsened throughout the day where she states she has gone through at [place] 10 large tampons. It is associated with strong, intermittent pelvic crampi ng that she notes is more severe than her normal menstrual cramps. She presente d to her PCP in [place], [place] where she found out she was . An ult rasound was performed which showed that she had an ectopic in her cerv ix. The fetus did have a heartbeat. She was then referred to a higher level ca re for further management. She was told she could not go to [facility] because [facility] and the had a heartbeat. She then elected to drive to because the remainder of her medical care is here. Patient has b een once in the past and gave to a term . Over the last few weeks patient has had increased fatigue, nausea, and bloating, which in retrosp ect she believes is secondary to her unknown at the time. Review of Systems: Review of Systems Constitutional: Positive for fatigue. Negative for chills and fever. HENT: Negative for congestion. Eyes: Negative for visual disturbance. Respiratory: Negative for cough and shortness of breath. Cardiovascular: Negative for chest pain and leg swelling. Gastrointestinal: Positive for abdominal distention, abdominal pain, constipatio n, nausea and vomiting. Negative for diarrhea. Genitourinary: Positive for menstrual problem, pelvic pain and vaginal bleeding. Musculoskeletal: Negative for back pain. Skin: Negative for rash. Neurological: Negative for headaches. Allergies: Metronidazole, Levofloxacin, and Prednisone Past Medical History: Medical History: Diagnosis Date Factor V Leiden (HCC) , ectopic, cornual or cervical Stroke (HCC) Past Surgical History: Surgical History: Procedure Laterality Date SECTION, LOW TRANSVERSE CHOLECYSTECTOMY CRANIOTOMY Pertinent medical/surgical history reviewed Social History: Social History Tobacco Use Smoking status: Current Every Day Smoker Packs/day: 0.50 Types: Cigarettes Smokeless tobacco: Never Used Substance Use Topics Alcohol use: Never Drug use: Never Social History Substance and Sexual Activity Drug Use Never Family History: No family history on file. Vitals: ED Vitals Date and Time T BP P RR SPO2P SPO2 User 05/05/21 2203 -- 102/48 -- -- 66 99 % SZ 05/05/21 2030 -- 120/62 -- -- 72 100 % 05/05/21 1822 37 C (98.6 F) 147/97 -- 18 PER MINUTE 81 100 % [place] Physical Exam: Physical Exam Vitals and nursing note reviewed. Constitutional: General: She is not in acute distress. Appearance: Normal appearance. She is normal weight. HENT: Head: Normocephalic and atraumatic. Mouth/Throat: Mouth: Mucous membranes are moist. Eyes: Extraocular Movements: Extraocular movements intact. Conjunctiva/sclera: Conjunctivae normal. Cardiovascular: Rate and Rhythm: Normal rate and regular rhythm. Pulses: Normal pulses. Heart sounds: Normal heart sounds. Pulmonary: Effort: Pulmonary effort is normal. No respiratory distress. Breath sounds: Normal breath sounds. Abdominal: General: There is distension. Palpations: Abdomen is soft. Tenderness: There is abdominal tenderness in the right lower quadrant, suprap ubic area and left lower quadrant. Genitourinary: Comments: Deferred for ultrasound Musculoskeletal: General: Normal range of motion. Cervical back: Normal range of motion and neck supple. Skin: General: Skin is warm and dry. Neurological: Mental Status: She is alert and oriented to person, place, and time. Mental s tatus is at baseline. Psychiatric: Mood and Affect: Mood normal. Behavior: Behavior normal. Laboratory Results: Labs Reviewed COMPREHENSIVE METABOLIC PANEL - Abnormal Result Value Ref Range Status Sodium 140 137 - 147 MMOL/L Final Potassium 3.8 3.5 - 5.1 MMOL/L Final Chloride 110 98 - 110 MMOL/L Final Glucose 88 70 - 100 MG/DL Final Blood Urea Nitrogen 10 7 - 25 MG/DL Final Creatinine 0.75 0.4 - 1.00 MG/DL Final Calcium 9.5 8.5 - 10.6 MG/DL Final Total Protein 7.0 6.0 - 8.0 G/DL Final Total Bilirubin 0.4 0.3 - 1.2 MG/DL Final Albumin 4.7 3.5 - 5.0 G/DL Final Alk Phosphatase 59 25 - 110 U/L Final AST (SGOT) 17 7 - 40 U/L Final CO2 20 (*) 21 - 30 MMOL/L Final ALT (SGPT) 16 7 - 56 U/L Final Anion Gap 10 3 - 12 Final eGFR Non >60 >60 mL/min Final eGFR >60 >60 mL/min Final URINALYSIS DIPSTICK REFLEX TO CULTURE - Abnormal Color,UA YELLOW Final Turbidity,UA 2+ (*) CLEAR-CLEAR Final Specific [place]-Urine 1.012 1.003 - 1.035 Final pH,UA 7.0 5.0 - 8.0 Final Protein,UA 2+ (*) NEG-NEG Final Glucose,UA NEG NEG-NEG Final Ketones,UA NEG NEG-NEG Final Bilirubin,UA NEG NEG-NEG Final Blood,UA 3+ (*) NEG-NEG Final Urobilinogen,UA NORMAL NORM-NORMAL Final Nitrite,UA NEG NEG-NEG Final Leukocytes,UA NEG NEG-NEG Final Urine Ascorbic Acid, UA NEG NEG-NEG Final BETA-HCG - Abnormal Beta-HCG,Serum 25,064 (*) <5 U/L Final CBC AND DIFF White Blood Cells 6.3 4.5 - 11.0 K/UL Final RBC 4.20 4.0 - 5.0 M/UL Final Hemoglobin 13.5 12.0 - 15.0 GM/DL Final Hematocrit 38.8 36 - 45 % Final MCV 92.4 80 - 100 FL Final MCH 32.2 26 - 34 PG Final MCHC 34.8 32.0 - 36.0 G/DL Final RDW 13.0 11 - 15 % Final Platelet Count 163 150 - 400 K/UL Final MPV 8.7 7 - 11 FL Final Neutrophils 56 41 - 77 % Final Lymphocytes 34 24 - 44 % Final Monocytes 8 4 - 12 % Final Eosinophils 1 0 - 5 % Final Basophils 1 0 - 2 % Final Absolute Neutrophil Count 3.58 1.8 - 7.0 K/UL Final Absolute Lymph Count 2.11 1.0 - 4.8 K/UL Final Absolute Monocyte Count 0.47 0 - 0.80 K/UL Final Absolute Eosinophil Count 0.07 0 - 0.45 K/UL Final Absolute Basophil Count 0.05 0 - 0.20 K/UL Final MDW (Monocyte Distribution Width) 17.0 <20.7 Final PROTIME INR (PT) INR 1.1 0.8 - 1.2 Final PTT (APTT) APTT 29.2 24.0 - 36.5 SEC Final MAGNESIUM Magnesium 2.2 1.6 - 2.6 mg/dL Final URINALYSIS MICROSCOPIC REFLEX TO CULTURE WBCs,UA NONE 0 - 2 /HPF Final RBCs,UA NONE 0 - 3 /HPF Final Comment,UA Final Value: Criteria for reflex to culture are WBC>10, Positive Nitrite, and/or >=+1 leukocytes. If quantity is not sufficient, an addendum will follow. Squamous Epithelial Cells 10-20 0 - 5 Final UA REFLEX LABEL TYPE & CROSSMATCH Units Ordered 0 Final Crossmatch Expires 05/08/2021,3014 Final Record Check 2ND TYPE REQUIRED Final ABO/RH(D) A POS Final Antibody Screen NEG Final Electronic Crossmatch YES Final BLOOD TYPE CONFIRMATION - ORDER ONLY IF REQUESTED BY LAB ABO/RH(D) A POS Final Radiology Interpretation: US OB TRANSVAGINAL Final Result 1. Single cervical ectopic , with an estimated gestational age of 6 we eks, 3 days. There is a very small subchorionic hemorrhage noted along the infer ior aspect of the gestational sac. 2. Mild heterogeneous material within the residual cavity above the cervical ec topic, most consistent with blood products. 3. 3 ovarian cystic lesions, likely a corpus luteum and 2 additional prominent follicle/benign cysts. Case discussed by Dr. Fernandes with Dr. Costello at 10:56 PM on 05/05/2021. By my electronic signature, I attest that I have personally reviewed the images for this examination and formulated the interpretations and opinions expressed i n this report Finalized by Landen Fernandes M.D. on 05/05/2021 10:57 PM. Dictated by Nicolette Williamson M.D. on 05/05/2021 10:08 PM. US OB LT 14 WKS TRANSAB 1ST GEST Final Result 1. Single cervical ectopic , with an estimated gestational age of 6 we eks, 3 days. There is a very small subchorionic hemorrhage noted along the infer ior aspect of the gestational sac. 2. Mild heterogeneous material within the residual cavity above the cervical ec topic, most consistent with blood products. 3. 3 ovarian cystic lesions, likely a corpus luteum and 2 additional prominent follicle/benign cysts. Case discussed by Dr. Fernandes with Dr. Costello at 10:56 PM on 05/05/2021. By my electronic signature, I attest that I have personally reviewed the images for this examination and formulated the interpretations and opinions expressed i n this report Finalized by Landen Fernandes M.D. on 05/05/2021 10:57 PM. Dictated by Nicolette Williamson M.D. on 05/05/2021 10:08 PM. EKG: N/A ED Course: Patient seen and evaluated by resident and attending for ectopic . Prev ious records and initial vitals reviewed. On arrival, patient is afebrile, hemod ynamically stable and in no apparent distress. Patient on monitor, PIV x2 placed . Physical exam as above. /IN FILE OPERATOR exam deferred for STAT pelvic ultrasound to ass ess for reported cervical ectopic . Labs including type & cross ordered. Pelvic ultrasound confirms cervical ectopic with postive FHT with estimated gestational age of 6w3d. OB STAT consulted regarding ultrasound findings. Initial labs do not show blood loss anemia concerning for severe hemorrhage at this time. Patient re-assessed frequently with regards to hemodyn amics and mental status. Following OB consultation, they will plan to admit for methotrexate administration and further monitoring/observation of patient's clin ical status. Please see their note for further details regarding their evaluatio n. Patient updated regarding plan of care who was agreeable. Patient admitted in serious but stable condition. ED Scoring: Coding Facility Administered Meds: Medications acetaminophen (TYLENOL EXTRA STRENGTH) tablet 1,000 mg (has no administration in time range) Clinical Impression: Clinical Impression Other ectopic without intrauterine Disposition/Follow up ED Disposition ED Disposition Admit No follow-up provider specified. Medications: New Prescriptions No medications on file Procedure Notes: Critical Care Performed by: Diane Szymanski MD Authorized by: Diane Szymanski MD Total critical care time in minutes: 35 Critical care was exclusive of separately billable procedures and treating other patients and teaching time. Critical care was necessary to treat or prevent imminent or life-threatening det erioration of the following conditions: shock (Ectopic ). Critical care was spent personally by me on the following activities: blood draw for specimens, development of treatment plan with patient or surrogate, discuss ions with consultants, examination of patient, obtaining history from patient or surrogate, ordering and review of laboratory studies, ordering and review of ra diographic studies, pulse oximetry, re-evaluation of patient's condition, interp retation of cardiac output measurements, evaluation of patient's response to natalia atment, ordering and performing treatments and interventions and review of old c harts. Attending Attestation: I personally performed the procedure myself. Attestation / Supervision: Tanika Grewal MD Emergency Medicine, PGY-2 Attestation / Supervision Note concerning Edith Garcia: I personally performed the beavers portions of the E/M visit, discussed case with resident and concur with resident documentation of history, physical exam, assessment, and treatment plan unless otherwise noted. and I personally performed the procedure myself. Diane Szymanski MD * Marisabel Cope RN - 05/05/2021 8:15 PM CDT 40 yo female presents to the ED with CC of possible ectopic . Pt states that she was in [place], [place] at her PCP when they did a few tests and found out she was having an ectopic . Pt was sent here for follow up and assess ment. Pt states that she's been having consistent bleeding for the last few week s and she originally though this was her period. Pt states that she uses tampon' s and has had to replace every few hours. Pt states that she has lower abdomen c ramping that radiates up the middle of her abdomen. 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 Pt has r/o m otor deficets on her R arm and leg from strokes. Pt is very anxious about this p ossible dx but this RN reassured her that she is in the right place. Pt denies h aving CP, SOB, N/V/D or loss of sensation. Pt is A&Ox4, VSS, resting in the cart with call light in reach. Visitor is noted bedside. Belongings: t-shirt, sweatpants, shoes, glasses, phone documented in this encounter Miscellaneous Notes * Care Plan - Janene Shelton RN - 05/06/2021 5:44 AM CDT Problem: Discharge Planning Goal: Participation in plan of care Outcome: Goal Ongoing Goal: Knowledge regarding plan of care Outcome: Goal Ongoing Goal: Prepared for discharge Outcome: Goal Ongoing Problem: Anxiety Goal: Alleviation of anxiety Outcome: Goal Ongoing Problem: Pain Goal: Management of pain Outcome: Goal Ongoing Goal: Knowledge of pain management Outcome: Goal Ongoing Problem: Maternal Injury, Risk of Goal: Absence of physical injury Outcome: Goal Ongoing Goal: Absence of hemorrhage signs and symptoms Outcome: Goal Ongoing documented in this encounter Plan of Treatment Not on filedocumented as of this encounter Procedures Comments Procedure Name Priority Date/Time Associated Diag nosis HC BETA-HCG; QUANT Routine 05/07/2021 4:35 AM CDT HC LVL IV SRG PTH, GROSS Routine 05/06/2021 & MICRO 12:15 PM CDT CONSULT IV THERAPY TEAM STAT 05/06/2021 9:44 AM CDT HC CBC W/ AUTOMATED DIFF Routine 05/06/2021 6:09 AM CDT HC BETA-HCG; QUANT Routine 05/06/2021 6:09 AM CDT HC COMPREHENSIVE Routine 05/06/2021 METABOLIC PANEL 6:09 AM CDT HC CBC W/ AUTOMATED DIFF STAT 05/06/2021 1:40 AM CDT COVID-19 (SARS-COV-2) PCR STAT 05/05/2021 11:55 PM CDT US OB TRANSVAGINAL STAT 05/05/2021 10:05 PM CDT US OB LT 14 WKS TRANSAB STAT 05/05/2021 1ST GEST 10:05 PM CDT HC BLOOD TYPING, ABO STAT 05/05/2021 CONFIRM 91 10:02 PM CDT UA REFLEX LABEL STAT 05/05/2021 8:54 PM CDT URINALYSIS MICROSCOPIC STAT 05/05/2021 REFLEX TO CULTURE 8:54 PM CDT HC URINALYSIS UAR STAT 05/05/2021 8:54 PM CDT HC PTT(APTT) STAT 05/05/2021 8:54 PM CDT HC PT(INR) STAT 05/05/2021 8:54 PM CDT HC CBC W/ AUTOMATED DIFF STAT 05/05/2021 8:54 PM CDT TYPE & CROSSMATCH STAT 05/05/2021 8:54 PM CDT HC BETA-HCG; QUANT STAT 05/05/2021 8:54 PM CDT HC MAGNESIUM STAT 05/05/2021 8:54 PM CDT HC COMPREHENSIVE STAT 05/05/2021 METABOLIC PANEL 8:54 PM CDT CRITICAL CARE Routine 05/05/2021 8:33 PM CDT documented in this encounter Results * BETA-HCG (05/07/2021 4:35 AM CDT) Beta-HCG,Serum 8,816 (H) <5 U/L [facility] Specimen Blood Performing Organization Address City/State/ZIP Code P ash Number [facility] [address] [place] [address] * PATHOLOGY SURGICAL < 5 SPECIMENS (05/06/2021 12:15 PM CDT) Pathologist [facility] PATHOLOGY [facility] [employer] [email or web address] Department of Pathology and Laboratory Medicine [address] [place] [address] Surgical Pathology Office: [phone] SURGICAL PATHOLOGY REPORT NAME: EDITH GARCIA SURG PATH #: [id number] MR #: [id number] SPECIMEN CLASS: SR BILLING #: [id number] ALT ID #: LOCATION: DISCHARGED DATE OF PROCEDURE: 05/06/2021 AGE: 40 SEX: F DATE RECEIVED: 05/06/2021 : 1980 TIME RECEIVED: 13:05 PHYSICIAN: Paty Goins MD DATE OF REPORT: 05/11/2021 COPY TO: TRAV ACHARYA MD DATE OF PRINTIN05/11/2021 ############################## ############################## ############ Final Diagnosis: A. Cervix, "aspirated tissue", aspirate: Chorionic villi present. Comment: A p57 immunostain shows intact staining. Attestation: By this signature, I attest that I have personally formulated the final interpretation expressed in this report and that the above diagnosis is based upon my examination of the slides and/or other material indicated in this report. +++ +++ Oralia Marshall DO, Resident /05/06/2021 ############################## ############################## ############ Material Received: A: aspirate tissue History: 40-year-old female with a history of cervical ectopic . Gross Description: A. Fixative: Formalin Labeled: "Aspirated tissue" Weight: 6 grams Measurement: 7.6 x 2.5 x 0.4 cm organs identified: No The specimen is entirely submitted in cassettes A1-A4. (apple) gm/05/06/2021 If immunohistochemical stains and/or in situ hybridization are cited in this report, the performance characteristics were determined by the Department of Pathology and Laboratory Medicine of the [facility] ([employer]) in compliance with CLIA'88 regulations. Some of these tests rely on the use of "analyte specific reagents" and are subject to specific labeling requirements by the FDA. The stains are performed on formalin-fixed, paraffin-embedded tissue, unless otherwise stated. Known positive and negative control tissues demonstrate appropriate staining. Results should be interpreted with caution given the likelihood of false negativity on decalcified specimens. This testing was developed by the Department of Pathology and Laboratory Medicine of the [facility]. It has not been cleared or approved by the FDA. The FDA has determined that such clearance or approval is not necessary. Specimen Other (Specify) Performing Organization Address City/State/ZIP Code P ash Number [facility] [address] [place] [address] * BETA-HCG (05/06/2021 6:09 AM CDT) Beta-HCG,Serum 24,433 (H) <5 U/L [facility] Specimen Blood Performing Organization Address City/State/ZIP Code P ash Number [facility] [address] [place] [address] * COMPREHENSIVE METABOLIC PANEL (05/06/2021 6:09 AM CDT) Sodium 138 137 - 147 MMOL/L [facility] Potassium 3.7 3.5 - 5.1 MMOL/L [facility] Chloride 111 (H) 98 - 110 MMOL/L [facility] Glucose 96 70 - 100 MG/DL [facility] Blood Urea 9 7 - 25 MG/DL [facility] Nitrogen Creatinine 0.70 0.4 - 1.00 MG/DL [facility] Calcium 8.6 8.5 - 10.6 MG/DL [facility] Total Protein 5.9 (L) 6.0 - 8.0 G/DL [facility] Total Bilirubin 0.6 0.3 - 1.2 MG/DL [facility] Albumin 4.0 3.5 - 5.0 G/DL [facility] Alk Phosphatase 51 25 - 110 U/L [facility] AST (SGOT) 15 7 - 40 U/L [facility] CO2 19 (L) 21 - 30 MMOL/L [facility] ALT (SGPT) 14 7 - 56 U/L [facility] Anion Gap 8 3 - 12 [facility] eGFR Non >60 >60 mL/min [facility] Comment: [place] The eGFR is not validated f or use in drug dosing adjustments. Continue to use estimated creatinine clearance per dosing reference text. Please contact the Clinical Pharmacist for questions. eGFR >60 >60 mL/min [facility] [place] Comment: The eGFR is not validated for use in drug dosing adjustments. Continue to use estimated creatinine clearance per dosing reference text. Please contact the Clinical Pharmacist for questions. Specimen Blood Performing Organization Address City/State/ZIP Code P ash Number [facility] [address] [place] [address] * CBC AND DIFF (05/06/2021 6:09 AM CDT) White Blood 5.9 4.5 - 11.0 K/UL [facility] Cells RBC 3.80 (L) 4.0 - 5.0 M/UL [facility] Hemoglobin 11.8 (L) 12.0 - 15.0 GM/DL [facility] Hematocrit 35.2 (L) 36 - 45 % [facility] MCV 92.5 80 - 100 FL [facility] MCH 31.1 26 - 34 PG [facility] MCHC 33.6 32.0 - 36.0 G/DL [facility] RDW 12.9 11 - 15 % [facility] Platelet Count 143 (L) 150 - 400 K/UL [facility] MPV 8.3 7 - 11 FL [facility] Neutrophils 56 41 - 77 % [facility] Lymphocytes 33 24 - 44 % [facility] Monocytes 8 4 - 12 % [facility] Eosinophils 2 0 - 5 % [facility] Basophils 1 0 - 2 % [facility] Absolute 3.32 1.8 - 7.0 K/UL [facility] Neutrophil Count Absolute Lymph 1.98 1.0 - 4.8 K/UL [facility] Count Absolute 0.49 0 - 0.80 K/UL [facility] Monocyte Count Absolute 0.09 0 - 0.45 K/UL [facility] Eosinophil Count Absolute 0.05 0 - 0.20 K/UL [facility] Basophil Count Specimen Blood Performing Organization Address City/State/ZIP Code P ash Number [facility] [address] [place] [address] * CBC AND DIFF (05/06/2021 1:40 AM CDT) White Blood 6.5 4.5 - 11.0 K/UL [facility] Cells RBC 3.85 (L) 4.0 - 5.0 M/UL [facility] Hemoglobin 12.3 12.0 - 15.0 GM/DL [facility] Hematocrit 35.7 (L) 36 - 45 % [facility] MCV 92.8 80 - 100 FL [facility] MCH 31.8 26 - 34 PG [facility] MCHC 34.3 32.0 - 36.0 G/DL [facility] RDW 12.9 11 - 15 % [facility] Platelet Count 149 (L) 150 - 400 K/UL [facility] MPV 8.2 7 - 11 FL [facility] Neutrophils 55 41 - 77 % [facility] Lymphocytes 34 24 - 44 % [facility] Monocytes 8 4 - 12 % [facility] Eosinophils 2 0 - 5 % [facility] Basophils 1 0 - 2 % [facility] Absolute 3.61 1.8 - 7.0 K/UL [facility] Neutrophil Count Absolute Lymph 2.18 1.0 - 4.8 K/UL [facility] Count Absolute 0.51 0 - 0.80 K/UL [facility] Monocyte Count Absolute 0.10 0 - 0.45 K/UL [facility] Eosinophil Count Absolute 0.07 0 - 0.20 K/UL [facility] Basophil Count Specimen Blood Performing Organization Address City/State/ZIP Code P ash Number [facility] [address] [place] [id number] * COVID-19 (SARS-COV-2) PCR (05/05/2021 11:55 PM CDT) COVID-19 FLOCKED SWAB [facility] (SARS-CoV-2) NASOPHARYNGEAL PCR Source COVID-19 NOT DETECTED DN-NOT DETECTED [facility] (SARS-CoV-2) Comment: PCR This assay is designed to detect the S and/or ORF1ab genes of SARS-CoV-2 using nucleic acid amplification. A "Not Detected" result does not preclude the possibility of SARS-CoV-2 infection since the adequacy of sample collection and/or low viral burden may result in the presence of viral nucleic acids below the analytical sensitivity of this test method. Test results should be used along with other clinical and laboratory data in making the diagnosis. Test parameters have not been validated for screening in asymptomatic patients.This test has not been FDA cleared or approved. This test is authorized for use under the FDA Emergency Use Authorization and performance characteristics have been verified by the [facility]. Fact sheet for providers: https://www.fda.gov/media/6660 85/download Fact sheet for patients: https://www.fda.gov/media/0079 87/download Specimen Flocked Swab - Nasopharyngeal Performing Organization Address City/State/ZIP Code P ash Number [facility] [address] [place] [id number] * US OB LT 14 WKS TRANSAB 1ST GEST (05/05/2021 10:05 PM CDT) Specimen Impressions Performed At 1. Single cervical ectopic , with an estim ated gestational age of 6 [facility] weeks, 3 days. There is a very small curtis bchorionic hemorrhage noted along the inferior aspect of the gestational sac. 2. Mild heterogeneous material within the residual cavity above the cervical ectopic, most consistent with blood pro ducts. 3. 3 ovarian cystic lesions, likely a corpus luteum and 2 additional prominent follicle/benign cysts. Case discussed by Dr. Fernandes with Dr. Costello at 10:56 PM on 05/05/2021. By my electronic signature, I attest th at I have personally reviewed the images for this examination and formulated the interpretations and opinions expressed in this report Finalized by Landen Fernandes M.D. on 05/05/2021 10:57 PM. Dictated by Nicolette Williamson M.D. on 05/05/2021 10:08 PM. Narrative Performed At OB ULTRASOUND PRIOR TO 14 WEEKS [facility] CLINICAL INDICATION: Female, 40 years o ld; Reported cervical ectopic TECHNIQUE: Multiple transabdominal and transvaginal ultrasound images were obtained of the pelvis for the purposes of obstetric evaluation. COMPARISON: None FINDINGS: Uterus: Measures 8.5 x 3.7 x 5.4 cm on transabdominal images. * There is a single gestational sac, which is located at the level of the cervix. Along the inferior aspect of th e gestational sac there is a small amount of ovoid hypoechogenicity most compatib le with a a small subchorionic hemorrhage measuring approximately 0.6 x 0.5 x 0.3 cm, without internal blood flow on color Doppler imaging. The crown-rump length measures approximately 5.9 mm, compatible with an estimated gestational age of 6 weeks, 3 days. cardiac activity is present with heart rate of 134 beats pe r minute. A normal yolk sac is present. * Some heterogeneous material is pres ent within the endometrial canal above the level of the cervical gestational s ac. Right adnexa: The ovary is normal in si ze measuring 2.6 x 1.2 x 2.1 cm. Normal arterial blood flow in the right ovary. No right adnexal mass. Left adnexa: The ovary is mildly enlarg ed measuring 6.0 x 2.8 x 3.8 cm. Normal arterial blood flow in the left ovary. There is a thick-walled cystic structure in the left ovary measuring 3.1 x 3.1 x 2.8 cm, with some peripheral hypervascularity on color Doppler imagi ng and most consistent with a corpus luteum. Additional more relatively thin -walled cystic structures are seen medial and lateral to the corpus luteum and me asure up to 2.2 cm and 2.7 cm. Other findings: There is minimal free p elvic fluid, which is within normal limits Procedure Note Interface, Radiant Results - 05/05/2021 11:00 PM CDT OB ULTRASOUND PRIOR TO 14 WEEKS CLINICAL INDICATION: Female, 40 years old; Reported cervical ectopic TECHNIQUE: Multiple transabdominal and transvaginal ultrasound images were obtained of the pelvis for the purposes of obstetric evaluation. COMPARISON: None FINDINGS: Uterus: Measures 8.5 x 3.7 x 5.4 cm on transabdominal images. * There is a single gestational sac, which is located at the level of the cervix. Along the inferior aspect of the gestational sac there is a small amount of ovoid hypoechogenicity most compatible with a a small subchorionic hemorrhage measuring approximately 0.6 x 0.5 x 0.3 cm, without internal blood flow on color Doppler imaging. The crown-rump length measures approximately 5.9 mm, compatible with an estimated gestational age of 6 weeks, 3 days. cardiac activity is present with heart rate of 134 beats per minute. A normal yolk sac is present. * Some heterogeneous material is present within the endometrial canal above the level of the cervical gestational sac. Right adnexa: The ovary is normal in size measuring 2.6 x 1.2 x 2.1 cm. Normal arterial blood flow in the right ovary. No right adnexal mass. Left adnexa: The ovary is mildly enlarged measuring 6.0 x 2.8 x 3.8 cm. Normal arterial blood flow in the left ovary. There is a thick-walled cystic structure in the left ovary measuring 3.1 x 3.1 x 2.8 cm, with some peripheral hypervascularity on color Doppler imaging and most consistent with a corpus luteum. Additional more relatively thin-walled cystic structures are seen medial and lateral to the corpus luteum and measure up to 2.2 cm and 2.7 cm. Other findings: There is minimal free pelvic fluid, which is within normal limits IMPRESSION 1. Single cervical ectopic , w ith an estimated gestational age of 6 weeks, 3 days. There is a very small subchorionic hemorrhage noted along the inferior aspect of the gestational sac. 2. Mild heterogeneous material within t he residual cavity above the cervical ectopic, most consistent with blood products. 3. 3 ovarian cystic lesions, likely a c orpus luteum and 2 additional prominent follicle/benign cysts. Case discussed by Dr. Fernandes with Dr. Costello at 10:56 PM on 05/05/2021. By my electronic signature, I attest that I have personally reviewed the images for this examination and formulated the interpretations and opinions expressed in this report Finalized by Landen Fernandes M.D. on 05/05/2021 10:57 PM. Dictated by Nicolette Williamson M.D. on 05/05/2021 10:08 PM. Performing Organization Address City/State/ZIP Code P ash Number [facility] * US OB TRANSVAGINAL (05/05/2021 10:05 PM CDT) Specimen Impressions Performed At 1. Single cervical ectopic , with an estim ated gestational age of 6 [facility] weeks, 3 days. There is a very small curtis bchorionic hemorrhage noted along the inferior aspect of the gestational sac. 2. Mild heterogeneous material within the residual cavity above the cervical ectopic, most consistent with blood pro ducts. 3. 3 ovarian cystic lesions, likely a corpus luteum and 2 additional prominent follicle/benign cysts. Case discussed by Dr. Fernandes with Dr. Costello at 10:56 PM on 05/05/2021. By my electronic signature, I attest th at I have personally reviewed the images for this examination and formulated the interpretations and opinions expressed in this report Finalized by Landen Fernandes M.D. on 05/05/2021 10:57 PM. Dictated by Nicolette Williamson M.D. on 05/05/2021 10:08 PM. Narrative Performed At OB ULTRASOUND PRIOR TO 14 WEEKS [facility] CLINICAL INDICATION: Female, 40 years o ld; Reported cervical ectopic TECHNIQUE: Multiple transabdominal and transvaginal ultrasound images were obtained of the pelvis for the purposes of obstetric evaluation. COMPARISON: None FINDINGS: Uterus: Measures 8.5 x 3.7 x 5.4 cm on transabdominal images. * There is a single gestational sac, which is located at the level of the cervix. Along the inferior aspect of th e gestational sac there is a small amount of ovoid hypoechogenicity most compatib le with a a small subchorionic hemorrhage measuring approximately 0.6 x 0.5 x 0.3 cm, without internal blood flow on color Doppler imaging. The crown-rump length measures approximately 5.9 mm, compatible with an estimated gestational age of 6 weeks, 3 days. cardiac activity is present with heart rate of 134 beats pe r minute. A normal yolk sac is present. * Some heterogeneous material is pres ent within the endometrial canal above the level of the cervical gestational s ac. Right adnexa: The ovary is normal in si ze measuring 2.6 x 1.2 x 2.1 cm. Normal arterial blood flow in the right ovary. No right adnexal mass. Left adnexa: The ovary is mildly enlarg ed measuring 6.0 x 2.8 x 3.8 cm. Normal arterial blood flow in the left ovary. There is a thick-walled cystic structure in the left ovary measuring 3.1 x 3.1 x 2.8 cm, with some peripheral hypervascularity on color Doppler imagi ng and most consistent with a corpus luteum. Additional more relatively thin -walled cystic structures are seen medial and lateral to the corpus luteum and me asure up to 2.2 cm and 2.7 cm. Other findings: There is minimal free p elvic fluid, which is within normal limits Procedure Note Interface, Radiant Results - 05/05/2021 11:00 PM CDT OB ULTRASOUND PRIOR TO 14 WEEKS CLINICAL INDICATION: Female, 40 years old; Reported cervical ectopic TECHNIQUE: Multiple transabdominal and transvaginal ultrasound images were obtained of the pelvis for the purposes of obstetric evaluation. COMPARISON: None FINDINGS: Uterus: Measures 8.5 x 3.7 x 5.4 cm on transabdominal images. * There is a single gestational sac, which is located at the level of the cervix. Along the inferior aspect of the gestational sac there is a small amount of ovoid hypoechogenicity most compatible with a a small subchorionic hemorrhage measuring approximately 0.6 x 0.5 x 0.3 cm, without internal blood flow on color Doppler imaging. The crown-rump length measures approximately 5.9 mm, compatible with an estimated gestational age of 6 weeks, 3 days. cardiac activity is present with heart rate of 134 beats per minute. A normal yolk sac is present. * Some heterogeneous material is present within the endometrial canal above the level of the cervical gestational sac. Right adnexa: The ovary is normal in size measuring 2.6 x 1.2 x 2.1 cm. Normal arterial blood flow in the right ovary. No right adnexal mass. Left adnexa: The ovary is mildly enlarged measuring 6.0 x 2.8 x 3.8 cm. Normal arterial blood flow in the left ovary. There is a thick-walled cystic structure in the left ovary measuring 3.1 x 3.1 x 2.8 cm, with some peripheral hypervascularity on color Doppler imaging and most consistent with a corpus luteum. Additional more relatively thin-walled cystic structures are seen medial and lateral to the corpus luteum and measure up to 2.2 cm and 2.7 cm. Other findings: There is minimal free pelvic fluid, which is within normal limits IMPRESSION 1. Single cervical ectopic , w ith an estimated gestational age of 6 weeks, 3 days. There is a very small subchorionic hemorrhage noted along the inferior aspect of the gestational sac. 2. Mild heterogeneous material within t he residual cavity above the cervical ectopic, most consistent with blood products. 3. 3 ovarian cystic lesions, likely a c orpus luteum and 2 additional prominent follicle/benign cysts. Case discussed by Dr. Fernandes with Dr. Costello at 10:56 PM on 05/05/2021. By my electronic signature, I attest that I have personally reviewed the images for this examination and formulated the interpretations and opinions expressed in this report Finalized by Landen Fernandes M.D. on 05/05/2021 10:57 PM. Dictated by Nicolette Williamson M.D. on 05/05/2021 10:08 PM. Performing Organization Address City/State/ZIP Code P ash Number RAD RESULTS * BLOOD TYPE CONFIRMATION - ORDER ONLY IF REQUESTED BY LAB (05/05/2021 10:02 PM CDT) ABO/RH(D) A POS [facility] Specimen Lung Performing Organization Address City/State/ZIP Code P ash Number [facility] [address] [place] [address] * UA REFLEX LABEL (05/05/2021 8:54 PM CDT) UA Reflex Criteria for reflex to culture [facility] Culture are WBC>10, Positive Nitrit e, and/or >=+1 leukocytes. If quantity is not sufficient, an addendum will follow. Specimen Urine Performing Organization Address City/State/ZIP Code P ash Number [facility] [address] [place] [address] * BETA-HCG (05/05/2021 8:54 PM CDT) Beta-HCG,Serum 25,064 (H) <5 U/L [facility] Specimen Blood Performing Organization Address [facility]/ZIP Code P ash Number [facility] [address] [place] [address] * URINALYSIS MICROSCOPIC REFLEX TO CULTURE (05/05/2021 8:54 PM CDT) WBCs,UA NONE 0 - 2 /HPF [facility] RBCs,UA NONE 0 - 3 /HPF [facility] Comment,UA Criteria for reflex to culture [facility] are WBC>10, Positive Nitrite, and/or >=+1 leukocytes. If quantity is not sufficient, an addendum will follow. Squamous 10-20 0 - 5 [facility] Epithelial Cells Specimen Urine Performing Organization Address [facility] [facility] P ash Number [facility] [address] [id number] * URINALYSIS DIPSTICK REFLEX TO CULTURE (05/05/2021 8:54 PM CDT) Color,UA YELLOW [facility] Turbidity,UA 2+ (A) CLEAR-CLEAR [facility] Specific 1.012 1.003 - 1.035 [facility] [place]-Urine pH,UA 7.0 5.0 - 8.0 [facility] Protein,UA 2+ (A) NEG-NEG [facility] Glucose,UA NEG NEG-NEG [facility] Ketones,UA NEG NEG-NEG [facility] Bilirubin,UA NEG NEG-NEG [facility] Blood,UA 3+ (A) NEG-NEG [facility] Urobilinogen,UA NORMAL NORM-NORMAL [facility] Nitrite,UA NEG NEG-NEG [facility] Leukocytes,UA NEG NEG-NEG [facility] Urine Ascorbic NEG NEG-NEG [facility] Acid, UA Specimen Urine Performing Organization Address [facility]/ZIP Code P ash Number [facility] [address] [place] [address] * MAGNESIUM (05/05/2021 8:54 PM CDT) Magnesium 2.2 1.6 - 2.6 mg/dL [facility] Specimen Blood Performing Organization Address [facility] P ash Number [facility] [address] [place] [address] * COMPREHENSIVE METABOLIC PANEL (05/05/2021 8:54 PM CDT) Sodium 140 137 - 147 MMOL/L [facility] Potassium 3.8 3.5 - 5.1 MMOL/L [facility] Chloride 110 98 - 110 MMOL/L [facility] Glucose 88 70 - 100 MG/DL [facility] Blood Urea 10 7 - 25 MG/DL [facility] Nitrogen Creatinine 0.75 0.4 - 1.00 MG/DL [facility] Calcium 9.5 8.5 - 10.6 MG/DL [facility] Total Protein 7.0 6.0 - 8.0 G/DL [facility] Total Bilirubin 0.4 0.3 - 1.2 MG/DL [facility] Albumin 4.7 3.5 - 5.0 G/DL [facility] Alk Phosphatase 59 25 - 110 U/L [facility] AST (SGOT) 17 7 - 40 U/L [facility] CO2 20 (L) 21 - 30 MMOL/L [facility] ALT (SGPT) 16 7 - 56 U/L [facility] Anion Gap 10 3 - 12 [facility] eGFR Non >60 >60 mL/min [facility] Comment: [place] The eGFR is not validated f or use in drug dosing adjustments. Continue to use estimated creatinine clearance per dosing reference text. Please contact the Clinical Pharmacist for questions. eGFR >60 >60 mL/min [facility] [place] Comment: The eGFR is not validated for use in drug dosing adjustments. Continue to use estimated creatinine clearance per dosing reference text. Please contact the Clinical Pharmacist for questions. Specimen Blood Performing Organization Address [facility]/[place]IP [facility] [place] Number [facility] [address] [place] [address] * TYPE & CROSSMATCH (05/05/2021 8:54 PM CDT) Units Ordered 0 [facility] Crossmatch 05/08/2021,2359 [facility] Expires Record Check 2ND TYPE REQUIRED [facility] ABO/RH(D) A POS [facility] Antibody Screen NEG [facility] Electronic YES [facility] Crossmatch Specimen Lung Performing Organization Address City/[facility]/ZIP Code P ash Number [facility] [address] [place] [address] * PTT (APTT) (05/05/2021 8:54 PM CDT) APTT 29.2 24.0 - 36.5 SEC [facility] Specimen Blood Performing Organization Address City/[facility]/ZIP Code P ash Number [facility] [address] [id number] * PROTIME INR (PT) (05/05/2021 8:54 PM CDT) INR 1.1 0.8 - 1.2 [facility] Specimen Blood Performing Organization Address City/[facility]/ZIP Code P ash Number [facility] [address] [id number] * CBC AND DIFF (05/05/2021 8:54 PM CDT) White Blood 6.3 4.5 - 11.0 K/UL [facility] Cells RBC 4.20 4.0 - 5.0 M/UL [facility] Hemoglobin 13.5 12.0 - 15.0 GM/DL [facility] Hematocrit 38.8 36 - 45 % [facility] MCV 92.4 80 - 100 FL [facility] MCH 32.2 26 - 34 PG [facility] MCHC 34.8 32.0 - 36.0 G/DL [facility] RDW 13.0 11 - 15 % [facility] Platelet Count 163 150 - 400 K/UL [facility] MPV 8.7 7 - 11 FL [facility] Neutrophils 56 41 - 77 % [facility] Lymphocytes 34 24 - 44 % [facility] Monocytes 8 4 - 12 % [facility] Eosinophils 1 0 - 5 % [facility] Basophils 1 0 - 2 % [facility] Absolute 3.58 1.8 - 7.0 K/UL [facility] Neutrophil Count Absolute Lymph 2.11 1.0 - 4.8 K/UL [facility] Count Absolute 0.47 0 - 0.80 K/UL [facility] Monocyte Count Absolute 0.07 0 - 0.45 K/UL [facility] Eosinophil Count Absolute 0.05 0 - 0.20 K/UL [facility] Basophil Count MDW (Monocyte 17.0 <20.7 [facility] Distribution Comment: Width) MDW greater than 20.0, together with other laboratory and clinical information, aids in the diagnosis of sepsis or increased risk of sepsis within the first 12 hours of presenting to the emergency department. MDW should not be used as a sole test to determine the absence of sepsis. Clinical performance of the MDW has not been determined in patients receiving immune stimulants, patients with alcoholism, or patients with hematologic abnormalities such as blast cells. Specimen Blood Performing Organization Address City/State/ZIP Code P ash Number MAIN LAB [address] [place] [address] * Critical Care (05/05/2021 8:33 PM CDT) Narrative Performed At Diane Szymanski MD 05/06/2021 8:54 PM Critical Care Performed by: Diane Szymanski MD Authorized by: Diane Szymanski MD Total critical care time in minutes: 35 Critical care was exclusive of separate ly billable procedures and treating other patients and teaching time. Critical care was necessary to treat or prevent imminent or life-threatening deterioration of the f ollowing conditions: shock (Ectopic ). Critical care was spent personally by tessy trujillo on the following activities: blood draw for specimens, development o f treatment plan with patient or surrogate, discussions with consultants , examination of patient, obtaining history from patient or surrogate, orde ring and review of laboratory studies, ordering and review of radiogr aphic studies, pulse oximetry, re-evaluation of patient's condition, i nterpretation of cardiac output measurements, evaluation of patient's r esponse to treatment, ordering and performing treatments and interventions and review of old charts. Attending Attestation: I personally per formed the procedure myself. documented in this encounter Visit Diagnoses Diagnosis , ectopic, cornual or cervical - Primary Other ectopic without intraut erine Other ectopic without intraut erine documented in this encounter Admitting Diagnoses Diagnosis , ectopic, cornual or cervical Other ectopic without intraut erine documented in this encounter Administered Medications Action Date Dose Rate Site Medication Order MAR Action 05/05/2021 11:46 PM CDT 1,000 mg acetaminophen (TYLENOL EXTRA STRENGTH) Given tablet 1,000 mg 1,000 mg, Oral, ONCE, 1 dose, On Tue05/06/21 at 0015, TOTAL ACETAMINOPHEN DOSE NOT TO EXCEED 4GM DAILY 05/06/2021 6:28 PM CDT 650 mg acetaminophen (TYLENOL) tablet 650 mg Given 650 mg, Oral, EVERY 4 HOURS PRN, Starting on Tue05/06/21 at 1328, Until Tue05/07/21 at 1312, Pain non-opioid: may be used alone or in combination wit h opioid analgesia, TOTAL ACETAMINOPHEN DOSE NOT TO EXCEED 4GM DAILY 650 mg Given 05/06/2021 1:58 PM CDT 05/07/2021 8:49 AM CDT 81 mg aspirin chewable tablet 81 mg Given 81 mg, Oral, DAILY, First dose on Tue05/06/21 at 0900, Until Discontinued 81 mg Given 05/06/2021 9:51 AM CDT 05/05/2021 11:46 PM CDT 20 mg baclofen (LIORESAL) tablet 20 mg Given 20 mg, Oral, ONCE, 1 dose, On Tue05/06/21 at 0015 05/07/2021 8:49 AM CDT 40 mg baclofen (LIORESAL) tablet 40 mg Given 40 mg, Oral, THREE TIMES DAILY, First dose (after last modification) on Tue05/06/21 at 0900, Until Discontinued 40 mg Given 05/06/2021 9:15 PM CDT 40 mg Given 05/06/2021 4:11 PM CDT 40 mg Given 05/06/2021 9:51 AM CDT 05/07/2021 8:49 AM CDT 400 mg carBAMazepine ER (CARBATROL) capsule 400 Given mg 400 mg, Oral, TWICE DAILY, First dose (after last modification) on Tue 1 at 0330, Until Discontinued 400 mg Given 05/06/2021 8:16 PM CDT 400 mg Given 05/06/2021 4:51 AM CDT docusate (COLACE) capsule 100 mg 100 mg, Oral, TWICE DAILY PRN, Starting on Tue05/06/21 at 0828, Until Karlene 05/07/21 at 1312, Constipation PO, Hold for loose stools 05/07/2021 8:49 AM CDT 15 mg escitalopram oxalate (LEXAPRO) tablet 15 Given mg 15 mg, Oral, DAILY, First dose on Tue05/06/21 at 0900, Until Discontinued 15 mg Given 05/06/2021 10:04 AM CDT 05/06/2021 11:08 AM CDT 50 mcg fentaNYL citrate PF (SUBLIMAZE) Given injection 100 mcg 100 mcg, Intravenous, ONCE, 1 dose, On Tue05/06/21 at 1115 05/06/2021 1:47 AM CDT 0.5 mg HYDROmorphone injection (DILAUDID) 0.5 Given mg 0.5 mg, Intravenous, ONCE, 1 dose, On Tue05/06/21 at 0215 05/06/2021 10:29 PM CDT 0.5 mg HYDROmorphone injection (DILAUDID) 0.5 Given mg 0.5 mg, Intravenous, EVERY 4 HOURS PRN , Starting on Tue05/06/21 at 0325, Until Tue05/07/21 at 1312, Pain Injectable, severe pain 0.5 mg Given 05/06/2021 2:09 PM CDT 0.5 mg Given 05/06/2021 7:51 AM CDT 05/06/2021 9:41 PM CDT 75 mL/hr lactated ringers infusion Given - New 1,000 mL, Intravenous, at 75 mL/hr, Bag CONTINUOUS, Starting on Tue05/06/21 at 0700, Until Tue05/07/21 at 1312 75 mL/hr Given - New Bag 05/06/2021 7:26 AM CDT 05/06/2021 7:29 PM CDT 1,000 mL 999 mL/hr lactated ringers infusion Given - New 1,000 mL, 1,000 mL, Intravenous, at 999 Bag mL/hr, BOLUS, 1 dose, On Tue05/06/21 at 1830 05/07/2021 8:51 AM CDT 7 mg Gluteal, Left leucovorin calcium injection 7 mg Given 7 mg, Intramuscular, EVERY 48 HOURS, First dose on Tue05/07/21 at 0900, Unti l Discontinued 05/06/2021 11:06 AM CDT 10 mL Other lidocaine 1 % (10mg/mL) injection 50 mL Given 50 mL, Injection, ONCE, 1 dose, On Tue05/06/21 at 1045, To be used for procedures. 05/06/2021 9:52 AM CDT 70.5 mg Gluteal, Left methotrexate PF injection 70.5 mg Given 70.5 mg (1 mg/kg 70.5 kg), Intramuscular, EVERY 48 HOURS , 4 doses, First dose on Tue05/06/21 at 0900, Last dose on Tue05/12/21 at 0900, Call # when order is ready for pick-up NURSING: Administration require d by chemotherapy credentialed nurse when ordered for a cancer indication NOTE: This is a HIGH ALERT Medication. 05/06/2021 10:15 PM CDT 22.5 mg mirtazapine (REMERON) tablet 22.5 mg Given 22.5 mg, Oral, AT BEDTIME DAILY, First dose (after last modification) on Tue05/06/21 at 0330, Until Discontinued 05/07/2021 8:48 AM CDT 5 mg oxyCODONE (ROXICODONE) tablet 5 mg Given 5 mg, Oral, EVERY 4 HOURS PRN, Startin g on Tue05/06/21 at 0325, Until Karlene 05/07/21 at 1312, Pain PO 5 mg Given 05/06/2021 5:00 AM CDT 05/06/2021 11:26 AM CDT 20 Units VASOPRESSIN 20 UNIT/ML IV SOLN (Cabinet Given Override) NOW, 1 dose, On Tue05/06/21 at 1115, Created by cabinet override, Created by cabinet override 05/07/2021 8:49 AM CDT 300 mg zonisamide (ZONEGRAN) capsule 300 mg Given 300 mg, Oral, TWICE DAILY, First dose (after last modification) on Tue 1 at 0330, Until Discontinued 300 mg Given 05/06/2021 10:15 PM CDT 300 mg Given 05/06/2021 4:55 AM CDT documented in this encounter Discontinued Medications Start Date End Date Medication Sig Discontinue Reason 07/05/2018 05/07/2021 aspirin-calcium carbonate Take 81 mg 81 mg-300 mg calcium(777 by mouth mg) tab daily. 03/06/2021 05/07/2021 hydrOXYzine HCL (ATARAX) Take one 25 mg tablet tablet by mouth twice daily as needed for Itching. 05/07/2021 aspirin EC 81 mg tablet Take 81 mg by mouth daily. Take with food. 05/07/2021 acetaminophen SR Take 650 mg (TYLENOL) 650 mg tablet by mouth every 8 hours as needed for Pain. documented as of this encounter Historical Medications * This list may reflect changes made after this encounter. Start Date End Date Medication Sig Dispensed Refills diphenhydrAMINE hcl Take 50 mg by 0 (BENADRYL ALLERGY) 25 mg mouth at tabletIndications: bedtime as allergic reaction, needed. sneezing Indications: an allergic reaction, sneezing docusate (COLACE) 100 mg Take 100-200 0 capsule mg by mouth daily as needed for Constipation. bisacodyL (DULCOLAX) 5 mg Take 10-15 mg 0 tablet by mouth three times weekly. escitalopram oxalate Take 5 mg by 0 (LEXAPRO) 5 mg tablet mouth daily. 05/07/2021 acetaminophen SR Take 650 mg 0 (TYLENOL) 650 mg tablet by mouth every 8 hours as needed for Pain. 05/07/2021 aspirin EC 81 mg tablet Take 81 mg by 0 mouth daily. Take with food. added in this encounter Active and Recently Administered Medications Times are shown in CDT. 05/06/2021 05/07/2021 Medication Order 05/05/2021 acetaminophen (TYLENOL EXTRA STRENGTH) 2346 (Given - tablet 1,000 mg (COMPLETED) Provider: Marisabel 1,000 mg, Oral, ONCE, 1 dose, On Tue OLIVIER Cope) 05/06/21 at 0015, TOTAL ACETAMINOPHEN DOSE NOT TO EXCEED 4GM DAILY 0951 (Given - Provider: Maribell Roblero) 0849 (Given - Provider: Angela Slater) aspirin chewable tablet 81 mg 81 mg, Oral, DAILY, First dose on Tue05/06/21 at 0900, Until Discontinued baclofen (LIORESAL) tablet 20 mg 2346 (Given - (COMPLETED) Provider: Marisabel 20 mg, Oral, ONCE, 1 dose, On Tue OLIVIER Cope) 05/06/21 at 0015 0951 (Given - Provider: Maribell Roblero)1611 ( Given - Provider: Maribell Roblero)211 (Given - Provider: Shawna Jenkins RN) 0849 (Given - Provider: Angela Slater) baclofen (LIORESAL) tablet 40 mg 40 mg, Oral, THREE TIMES DAILY, First dose (after last modification) on Tue05/06/21 at 0900, Until Discontinued 0451 (Given - Provider: Janene Shelton RN )2015 (Given - Provider: Shawna Jenkins RN) 0849 (Given - Provider: Angela Slater) carBAMazepine ER (CARBATROL) capsule 40 0 mg 400 mg, Oral, TWICE DAILY, First dose (after last modification) on Tue 1 at 0330, Until Discontinued 1004 (Given - Provider: Maribell Roblero) 0849 (Given - Provider: Angela Slater) escitalopram oxalate (LEXAPRO) tablet 1 5 mg 15 mg, Oral, DAILY, First dose on Tue05/06/21 at 0900, Until Discontinued 1108 (Given - Provider: Maribell Roblero - Comm ent: 50mcg wasted with Elda Quinn RN) fentaNYL citrate PF (SUBLIMAZE) injection 100 mcg (COMPLETED) 100 mcg, Intravenous, ONCE, 1 dose, On Tue05/06/21 at 1115 1145 (Med Not Given - Provider: Maribell gibson - Reason: Provider Order) ferric subsulfate (MONSEL'S) topical solution Topical, ONCE, 1 dose, On Tue05/06/21 a t 1215 1915 (Med Not Given - Provider: Shawna vallejo RN - Reason: Order parameters not met) ferric subsulfate (MONSEL'S) topical solution Topical, ONCE, 1 dose, On Tue05/06/21 a t 1915 0147 (Given - Provider: Janene Shelton RN ) HYDROmorphone injection (DILAUDID) 0.5 mg (COMPLETED) 0.5 mg, Intravenous, ONCE, 1 dose, On Tue05/06/21 at 0215 1929 (Given - New Bag - Provider: Maribell clark) lactated ringers infusion (COMPLETED) 1,000 mL, 1,000 mL, Intravenous, at 999 mL/hr, BOLUS, 1 dose, On Tue05/06/21 at 1830 0851 (Given - Provider: Angela Slater) leucovorin calcium injection 7 mg 7 mg, Intramuscular, EVERY 48 HOURS, First dose on Tue05/07/21 at 0900, Unti l Discontinued 1106 (Given - Provider: Abi Chery MD - Comment: intracervical) lidocaine 1 % (10mg/mL) injection 50 mL (COMPLETED) 50 mL, Injection, ONCE, 1 dose, On Tue05/06/21 at 1045, To be used for procedures. 0952 (Given - Provider: Maribell Roblero - Comm ent: verified with Annie Edwards RN) methotrexate PF injection 70.5 mg 70.5 mg (1 mg/kg 70.5 kg), Intramuscular, EVERY 48 HOURS , 4 doses, First dose on Tue05/06/21 at 0900, Last dose on Tue05/12/21 at 0900, Call # when order is ready for pick-up NURSING: Administration require d by chemotherapy credentialed nurse when ordered for a cancer indication NOTE: This is a HIGH ALERT Medication. 0458 (Med Not Given - Provider: Janene Shelton RN - Reason: Patient Refused)2215 (Given - Provider: Shawna Jenkins, RN) mirtazapine (REMERON) tablet 22.5 mg 22.5 mg, Oral, AT BEDTIME DAILY, First dose (after last modification) on Tue05/06/21 at 0330, Until Discontinued 1126 (Given - Provider: Maribell Roblero - Comm ent: intracervical) VASOPRESSIN 20 UNIT/ML IV SOLN (Cabinet Override) (COMPLETED) NOW, 1 dose, On Tue05/06/21 at 1115, Created by cabinet override, Created by cabinet override 0455 (Given - Provider: Janene Shelton RN )2215 (Given - Provider: Shawna Jenkins, OLIVIER) 0849 (Given - Provider: Angela Slaetr) zonisamide (ZONEGRAN) capsule 300 mg 300 mg, Oral, TWICE DAILY, First dose (after last modification) on Tue 1 at 0330, Until Discontinued 05/06/2021 05/07/2021 Medication Order 05/05/2021 0726 (Given - New Bag - Provider: Maribell clark)2141 (Given - New Bag - Provider: Shawna Jenkins, OLIVIER) lactated ringers infusion 1,000 mL, Intravenous, at 75 mL/hr, CONTINUOUS, Starting on Tue05/06/21 at 0700, Until Karlene 05/07/21 at 1312 05/06/2021 05/07/2021 Medication Order 05/05/2021 1358 (Given - Provider: Maribell Roblero)1828 ( Given - Provider: Maribell Roblero) acetaminophen (TYLENOL) tablet 650 mg 650 mg, Oral, EVERY 4 HOURS PRN, Starting on Tue05/06/21 at 1328, Until Tue05/07/21 at 1312, Pain non-opioid: may be used alone or in combination wit h opioid analgesia, TOTAL ACETAMINOPHEN DOSE NOT TO EXCEED 4GM DAILY docusate (COLACE) capsule 100 mg 100 mg, Oral, TWICE DAILY PRN, Starting on Tue05/06/21 at 0828, Until Tue05/07/21 at 1312, Constipation PO, Hold for loose stools 0751 (Given - Provider: Maribell Roblero)1409 ( Given - Provider: Maribell Roblero)2229 (Given - Provider: Shawna Jenkins RN) HYDROmorphone injection (DILAUDID) 0.5 mg 0.5 mg, Intravenous, EVERY 4 HOURS PRN , Starting on Tue05/06/21 at 0325, Until Karlene 05/07/21 at 1312, Pain Injectable, severe pain hydrOXYzine HCL (ATARAX) tablet 25 mg 25 mg, Oral, TWICE DAILY PRN, Starting on Tue05/06/21 at 0043, Until Tue05/07/21 at 1312, Anxiety PO, Insomnia LORazepam (ATIVAN) tablet 1 mg 1 mg, Oral, EVERY 6 HOURS PRN, Startin g on Tue05/06/21 at 0043, Until Karlene 05/07/21 at 1312, Anxiety PO 0500 (Given - Provider: Janene Shelton RN ) 0848 (Given - Provider: Angela Slater) oxyCODONE (ROXICODONE) tablet 5 mg 5 mg, Oral, EVERY 4 HOURS PRN, Startin g on Tue05/06/21 at 0325, Until Karlene 05/07/21 at 1312, Pain PO documented in this encounter Orders First Ordered Date Medications Ordered That Might Not Have Count Last Ordered Date Been Administered baclofen (LIORESAL) tablet 20 mg 1 05/06 bisacodyL (DULCOLAX) rectal suppository 1 05/06/2021 10 mg carBAMazepine ER (CARBATROL) capsule 400 1 05/06/2021 mg docusate (COLACE) capsule 100 mg 1 05/06 FENTANYL CITRATE (PF) 50 MCG/ML IJ SOLN 05/06/2021 (Cabinet Override) ferric subsulfate (MONSEL'S) topical 2 0 05/06/2021 solution hydrOXYzine HCL (ATARAX) tablet 25 mg 1 05/06/2021 leucovorin calcium 7 mg in dextrose 5% 1 05/06/2021 (D5W) 50.35 mL IVPB LORazepam (ATIVAN) tablet 1 mg 1 021 mirtazapine (REMERON) tablet 22.5 mg 1 0 05/06/2021 zonisamide (ZONEGRAN) capsule 100 mg 1 0 05/06/2021 First Ordered Date Procedures Count Last Ordered Date CONSULT IV THERAPY TEAM 1 05/06/2021 First Ordered Date Diet Count Last Ordered Date DISCHARGE DIET REGULAR 1 05/07/2021 First Ordered Date Nursing Count Last Ordered Date DISCHARGE ACTIVITY NORMAL 1 05/07/2021 DISCHARGE COMMENTS 1 05/07/2021 DISCHARGE CONTACT 1 05/07/2021 DISCHARGE SIGNS/SYMPTOMS 1 05/07/2021 First Ordered Date Consult Count Last Ordered Date CONSULT OUTSIDE SALES REPRESENTATIVE INSURANCE PHYSICIAN 1 021 First Ordered Date Admission Count Last Ordered Date PLACE PATIENT OBSERVATION CLASS 1 First Ordered Date Discharge Count Last Ordered Date DISCHARGE PATIENT NOW 1 05/07/2021 First Ordered Date Vital Signs Count Last Ordered Date VITAL SIGNS 1 05/06/2021 First Ordered Date Activity Count Last Ordered Date MOBILITY 1 05/06/2021 First Ordered Date Order Set Communication Count Last Ordered D ate VTE DRUG PROPHYLAXIS CONTRAINDICATED 1 0 05/06/2021 First Ordered Date Intake & Output Count Last Ordered Date INTAKE AND OUTPUT 1 05/06/[address] & Maintain Count Last Ordered Date PLACE AND MAINTAIN SCD 1 05/06/2021 First Ordered Date ADT Patient Update Count Last Ordered Date CHANGE PATIENT CLASS 1 05/06/2021 documented in this encounter Additional Health Concerns Assessment Noted Time A fall risk assessment has been completed for the pat ient 05/07/2021 8:50 AM CDT PHQ-2 Depression Total Score: 2 02/27/2021 10:36 AM CDT documented as of this encounter
--- OUTSIDE RECORDS SUMMARY | 2021-05-12 16:11 | XMS REPORT | Encounter Summary ---
Author Author [facility] Organization [facility] Address Unknown Phone Unavailable Care Team Providers Care Sewer Builder Name Role Phone Luis Gray PA-C PCP Clem Little MD 100 Encounter Details Care Team Description Date Type Department Marzena Rouse PA-C [address] [facility] [id number] [place] [address] 04/10/2021 Telephone Cardiology: [facility], [id number] [place] [address]. [address], [address] [place] [address] Social History Date Tobacco Use Types Packs/Day [...] Date Recorded Female 12/13/2019 7:39 AM CDT documented as of this encounter Functional Status Date of Assessment [...] impairment: No documented as of this encounter Miscellaneous Notes * Telephone Encounter - Morenita Gary - 04/10/2021 4:23 PM CDT CBC done on 02/27, sent to Marzena to review. ----- Message from Lynda Seaman RN sent at 04/08/2021 3:41 PM CDT ----- Regarding: FW: Lab f/u ----- Message ----- From: Sejal Bey RN Sent: 03/06/2021 To: Lynda Seaman RN Subject: Lab f/u 02/27/2021 3:20 PM JAF pt seen by ELENI barahona in clinic and to have CBC with diff done. Was going to [facility] right after appt. Done? documented in this encounter Plan of Treatment Not on filedocumented as of this encounter Visit Diagnoses Not on filedocumented in this encounter Additional Health Concerns Assessment Noted Time A fall risk assessment has been completed for the pat ient 02/27/2021 2:16 PM CDT PHQ-2 Depression Total Score: 2 02/27/2021 10:36 AM CDT documented as of this encounter
--- OUTSIDE RECORDS SUMMARY | 2021-05-12 16:11 | XMS REPORT | Encounter Summary ---
Author Author [facility] Organization [facility] Address Unknown Phone Unavailable Care Team Providers Care Corporate Counselor Name Role Phone Luis Gray PA-C PCP Clem Little MD 100 Reason for Referral * Pain Authorization (Routine) Referred By Contact Referred To Contact Status Reason Specialty Diagnoses / Procedures Jadon Main MD [address] [place] [address] Formerly [facility] Sp[facility] Rehab Med Cl [address] [facility], [address] [address] Authorized Rehabilitation Diagnoses Medicine Spasticity P rocedures [facility] CHEMODENERVATION TRUNK MUSCLES Electronically signed by Jadon Main MD at * Pain Authorization (Routine) Referred By Contact Referred To Contact Status Reason Specialty Diagnoses / Procedures Jadon Main MD [address] [place] [address] Formerly [facility] Spn Rehab Med Cl [address] [facility], [address] [address] Authorized Rehabilitation Diagnoses Medicine Spasticity P rocedures [facility] CHEMODENERVATION EXTREMITY MUSCLES Electronically signed by Jadon Main MD at Encounter Details Care Team Description Date Type Department Jadon Main MD [address] [place] [address] Spasticity (Primary Dx) 04/16/2021 Orders Only [facility] Med: [facility] [address] [facility] [address], [address] [place] [address] Social History Date Tobacco Use [...] impairment: No documented as of this encounter Plan of Treatment Order Schedule Name Type Priority Associated Diag noses Expected: 04/16/2022, Expires: 2 [facility] Procedures Routine Spasticity CHEMODENERVATION TRUNK MUSCLES documented as of this encounter Results * AMB SPINE CHEMODENERVATION EXTREMITY MUSCLES (04/30/2021 12:30 PM [...] in this encounter Visit Diagnoses Diagnosis Spasticity - Primary Abnormal involuntary movements documented in this encounter Additional Health Concerns Assessment Noted Time A fall risk assessment has been completed for the pat ient 02/27/2021 2:16 PM CDT PHQ-2 Depression Total Score: 2 02/27/2021 10:36 AM CDT documented as of this encounter
--- OUTSIDE RECORDS SUMMARY | 2021-05-12 16:11 | XMS REPORT | Encounter Summary ---
Author Author [facility] Organization [facility] Address Unknown Phone Unavailable Care Team Providers Care Dental Receptionist Name Role Phone Luis Gray PA-C PCP Clem Little MD 100 Encounter Details Care Team Description Date Type Department 05/05/2021 Travel Social History Date Tobacco Use Types Packs/Day [...] / COVID-19? documented as of this encounter Functional Status [...] as of this encounter Plan of Treatment Not on filedocumented as of this encounter Visit Diagnoses Not on filedocumented in this encounter Additional Health Concerns Assessment Noted Time A fall risk assessment has been completed for the pat ient 02/27/2021 2:16 PM CDT PHQ-2 Depression Total Score: 2 02/27/2021 10:36 AM CDT documented as of this encounter
--- OUTSIDE RECORDS SUMMARY | 2021-05-12 16:11 | XMS REPORT | Encounter Summary ---
Author Author [facility] Organization [facility] Address Unknown Phone Unavailable Care Team Providers Care Front Desk Clerk Name Role Phone Luis Gray PA-C PCP Clem Little MD 100 Encounter Details Care Team Description Date Type Department 05/05/2021 Hospital Patient Care Unit B H56: Encounter Main [place], [facility] [address] [facility] [address] [place] [address] Social History Date Tobacco Use [...]
--- OUTSIDE RECORDS SUMMARY | 2021-05-12 16:11 | XMS REPORT | Encounter Summary ---
Author Author [facility] Organization [facility] Address Unknown Phone Unavailable Care Team Providers Care Blade Changer Name Role Phone Luis Gray PA-C PCP Clem Little MD 100 Encounter Details Care Team Description Date Type Department 04/30/2021 Travel Social History Date Tobacco Use Types [...]
--- OUTSIDE RECORDS SUMMARY | 2021-05-12 16:11 | XMS REPORT | Clinical Summary ---
Author Author [facility] Organization [facility] Address Unknown Phone Unavailable Care Team Providers Care Transport Coordinator Name Role Phone Luis Gray PA-C PCP Clem Little MD 100 Source Comments Some departments are not documenting in the electronic medical record. If you d o not see the information that you expected, contact Release of Information in [facility] Information Management department at [phone] for further assistan ce in locating additional records.[facility] Allergies Comments Active Allergy Reactions Severity Noted Date Other reaction(s): Other (see comments) SE of leg pain, problems walking. Levofloxacin MUSCLE PAIN Medium 09/27/2017 Other reaction(s): Seizure Metronidazole SEIZURES High 09/27/2017 Pt stated it gives her really bad leg pain Prednisone MUSCLE PAIN Medium 01/28/2021 Medications End Date Status Medication Sig Dispensed Refills Start Date Active mirtazapine (REMERON) 45 Take 22.5 mg 0 mg tablet by mouth at bedtime daily. Active escitalopram oxalate Take 10 mg by 0 (LEXAPRO) 10 mg tablet mouth daily. Take with 5 mg for total dose of 15 mg. Active zonisamide (ZONEGRAN) 100 TAKE THREE 540 capsule 1 mg capsule CAPSULES BY 1 MOUTH TWICE A DAY Active carBAMazepine XR TAKE ONE 180 tablet 1 (TEGRETOL XR) 400 mg TABLET BY 1 tablet MOUTH TWICE A DAY Active baclofen (LIORESAL) 20 mg TAKE TWO 90 tablet 2 tablet TABLETS BY 1 MOUTH THREE TIMES A DAY Active aspirin 81 mg chewable Chew 81 mg by 0 tablet mouth daily. Take with food. Active escitalopram oxalate Take 5 mg by 0 (LEXAPRO) 5 mg tablet mouth daily. Active bisacodyL (DULCOLAX) 5 mg Take 10-15 mg 0 tablet by mouth three times weekly. Active docusate (COLACE) 100 mg Take 100-200 0 capsule mg by mouth daily as needed for Constipation. Active diphenhydrAMINE hcl Take 50 mg by 0 (BENADRYL ALLERGY) 25 mg mouth at tabletIndications: bedtime as allergic reaction, needed. sneezing Indications: an allergic reaction, sneezing Active acetaminophen SR Take one 100 tablet 1 (TYLENOL) 650 mg tablet tablet by 1 mouth every 6 hours as needed for Pain. Active oxyCODONE (ROXICODONE) 5 Take one 5 tablet 0 0 mg tablet tablet by 1 mouth every 6 hours as needed for Pain 05/07/2021 Discontinued aspirin-calcium carbonate Take 81 mg by 0 06/09 81 mg-300 mg calcium(777 mouth daily. 8 mg) tab 05/07/2021 Discontinued hydrOXYzine HCL (ATARAX) Take one 20 tablet 0 0 25 mg tablet tablet by 1 mouth twice daily as needed for Itching. 05/07/2021 Discontinued aspirin EC 81 mg tablet Take 81 mg by 0 mouth daily. Take with food. 05/07/2021 Discontinued acetaminophen SR Take 650 mg 0 (TYLENOL) 650 mg tablet by mouth every 8 hours as needed for Pain. Status Hospital, Clinic, or Ordered Dose Route Frequency Start End Date Other Facility Date Administered Medication Ended ONAbotulinum toxin A 600 Units IM ONCE 04/30/20 (BOTOX) injection 600 21 1 Units Active Problems Problem Noted Date , ectopic, cornual or cervical 05/05/2021 S/P mitral valve replacement 02/27/2021 Overview: Formatting of this note might be differ ent from the original. 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 thrombus mechanical valve requiring a redo tissu e valve re placement ([facility] [facility] Biocor porcine bioprosthetic mitral kalie ve) in 2007 Injury of right foot 09/16/2020 History of hepatitis B 06/20/2020 Spasticity as late effect of cerebrovascular accident (CVA) 12/14/2019 Gait abnormality 12/14/2019 Palpitation 11/29/2019 Overview: Formatting of this note might be differ ent from the original. 08/17/2018- Zio-patch: No significant a rrhythmias recorded. Valvular heart disease 11/29/2019 Overview: Formatting of this note might be differ ent from the original. Cardiovascular mitral valve damage from endocarditis , had CVAs due to emboli from original valve. Now has bio prosthetic mitral valve. 12/28/2019- Echo: EF 65%. Normal aortic valve. Normal left ventricle size and function. Normal mitral valve biopr osthesis function. Unable to measure pulmonary artery pressure. Normal right ventricle size and ejection fraction. No previous echocardiogram fo r comparison. Personal history of transient cerebral ischemia 11/07 Major depressive disorder, recurrent episode, in full remission 11/29/2019 Endocarditis 11/29/2019 Overview: Formatting of this note might be differ ent from the original. 2004 -[place] valve endocarditis, mechan ical mitral valve replacement 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 Following cardioembolic CVA 2007 Encounters Care Team Description Date Type Specialty Diane Szymanski MD Pierson, Genie M, MD , ectopic, cornual or cervical 05/05/2021 Hospital - Encounter 05/07/2021 05/05/2021 Hospital Encounter 05/05/2021 Travel Jadon Main MD Spasticity 04/30/2021 Procedure visit Rehabilitation [facility] [employer] 04/30/2021 Travel Jadon Main MD Spasticity (Primary Dx) 04/16/2021 Orders Only Rehabilitation [facility] Marzena Rouse PA-C 04/10/2021 Telephone Cardiology Daxa Hinds APRN-NP New daily persistent headache (ndph) 03/06/2021 Hospital Lab Encounter Self, Referral Daxa Hinds APRN-NP Pruritic rash (Primary Dx); Nausea; New daily persistent headache (ndph) 03/06/2021 Office Visit Urgent Care Marzena Rouse PA-C 03/06/2021 Hospital Cardiology Encounter Chanel Duron RN Results (Echo results discussed with mary arboleda) 03/06/2021 Telephone Cardiology 03/06/2021 Travel Sejal Bey RN Lab Results (CBC) 03/04/2021 Telephone Cardiology Abi Monteiro RN Labs Only (most recent PCP labs) 03/04/2021 Documentation Cardiology Abi Monteiro RN Multidisciplinary Discussion (Element Im aging questions) 03/03/2021 Telephone Cardiology Marzena Rouse PA-C 02/27/2021 Hospital Lab Encounter Marzena Rouse PA-C Follow Up (5 month follow up Valvular Di sease ) 02/27/2021 Office Visit Cardiology Vick Forde MD 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, not intractable, without status epilepticus (HCC) (Primary Dx) 02/27/2021 Office Visit Neurology Clemencia Ge RN Care Coordination ([place] [employer] form completed) 02/27/2021 Telephone Neurology 02/27/2021 Travel Shannan Mina MA Records Request (Labs from PCP ) 02/24/2021 Documentation Cardiology from Last 3 Months Surgical History Surgery Date Site/Laterality Comments CRANIOTOMY CHOLECYSTECTOMY SECTION, LOW TRANSVERSE Medical History Medical History Date Comments Stroke (HCC) Factor V Leiden (HCC) , ectopic, cornual or cervical Family History Relation Name Status Comments Father Alive Mother Alive Social History Date Tobacco Use Types Packs/Day [...] or suspected to have Coronavirus / COVID-19? Last Filed Vital Signs Reading Time Taken Comments Vital Sign 103/57 05/07/2021 8:23 AM CDT Blood Pressure 76 05/07/2021 8:23 AM CDT Pulse 37 C (98.6 F) 05/07/2021 8:19 AM CDT Temperature 16 04/30/2021 12:11 PM CDT Respiratory Rate 99% 05/07/2021 8:23 AM CDT Oxygen Saturation - - Inhaled Oxygen Concentration 70.5 kg (155 lb 6.4 oz) 05/06/2021 3:20 AM CDT Weight 170.2 cm (5' 7") 04/30/2021 12:11 PM CDT Height 24.34 04/30/2021 12:11 PM CDT Body Mass Index Plan of Treatment Health Maintenance Due Date Last Done Comments MEDICARE ANNUAL WELLNESS 1982 VISIT HIV SCREENING 1997 DTAP/TDAP VACCINES (1 - 2000 Tdap) HEPATITIS C SCREENING 2000 PHYSICAL (COMPREHENSIVE) 2000 EXAM CERVICAL CANCER SCREENING 12/27/2003 INFLUENZA VACCINE 03/08/2021 Procedures Comments Procedure Name Priority Date/Time Associated Diag nosis HC BETA-HCG; QUANT Routine 05/07/2021 4:35 AM CDT HC LVL IV SRG PTH, GROSS Routine 05/06/2021 & MICRO 12:15 PM CDT CONSULT IV THERAPY TEAM STAT 05/06/2021 9:44 AM CDT HC BETA-HCG; QUANT Routine 05/06/2021 6:09 AM CDT HC COMPREHENSIVE Routine 05/06/2021 METABOLIC PANEL 6:09 AM CDT HC CBC W/ AUTOMATED DIFF Routine 05/06/2021 6:09 AM CDT HC CBC W/ AUTOMATED DIFF STAT 05/06/2021 1:40 AM CDT COVID-19 (SARS-COV-2) PCR STAT 05/05/2021 11:55 PM CDT US OB LT 14 WKS TRANSAB STAT 05/05/2021 1ST GEST 10:05 PM CDT US OB TRANSVAGINAL STAT 05/05/2021 10:05 PM CDT HC BLOOD TYPING, ABO STAT 05/05/2021 CONFIRM 91 10:02 PM CDT TYPE & CROSSMATCH STAT 05/05/2021 8:54 PM CDT HC BETA-HCG; QUANT STAT 05/05/2021 8:54 PM CDT UA REFLEX LABEL STAT 05/05/2021 8:54 PM CDT URINALYSIS MICROSCOPIC STAT 05/05/2021 REFLEX TO CULTURE 8:54 PM CDT HC URINALYSIS UAR STAT 05/05/2021 8:54 PM CDT HC MAGNESIUM STAT 05/05/2021 8:54 PM CDT HC COMPREHENSIVE STAT 05/05/2021 METABOLIC PANEL 8:54 PM CDT HC PTT(APTT) STAT 05/05/2021 8:54 PM CDT HC PT(INR) STAT 05/05/2021 8:54 PM CDT HC CBC W/ AUTOMATED DIFF STAT 05/05/2021 8:54 PM CDT CRITICAL CARE Routine 05/05/2021 8:33 PM CDT KU AMB SPINE Routine 04/30/2021 Spasticity CHEMODENERVATION 12:30 PM CDT EXTREMITY MUSCLES K[facility] AMB SPINE Routine 04/30/2021 Spasticity CHEMODENERVATION 12:30 PM CDT EXTREMITY MUSCLES COVID-19 (SARS-COV-2) PCR Routine 03/06/2021 New daily persistent 1:28 PM CDT headache (ndph) 2D + DOPPLER ECHO NO Routine 03/06/2021 Valvular heart disease CONTRAST 11:24 AM CDT Bacterial endocardi tis, unspecified chronicity S/P mitral valve replacement HC CBC W/ AUTOMATED DIFF Routine 02/27/2021 Bacte rial endocarditis, 3:56 PM CDT unspecified chronicity S/P mitral valve replacement from Last 3 Months Results * BETA-HCG (05/07/2021 4:35 AM CDT) Only the most recent of 3 results within the time period is included. Pathologist [facility] Beta-HCG,Serum 8,816 (H) <5 U/L [facility] Specimen Blood Performing Organization Address City/State/ZIP Code P ash Number [facility] [address] [place] [address] * PATHOLOGY SURGICAL < 5 SPECIMENS (05/06/2021 12:15 PM CDT) Pathologist [facility] PATHOLOGY [facility] [email or web address] Department of Pathology and Laboratory Medicine [address] [place] [id number] Surgical Pathology Office: [phone] SURGICAL PATHOLOGY REPORT NAME: EDITH GARCIA SURG PATH #: [id number] MR #: [id number] SPECIMEN CLASS: SR BILLING #: [id number] ALT ID #: LOCATION: DISCHARGED DATE OF PROCEDURE: 05/06/2021 AGE: 40 SEX: F DATE RECEIVED: 05/06/2021 : 1980 TIME RECEIVED: 13:05 PHYSICIAN: Paty Goins MD DATE OF REPORT: 05/11/2021 COPY TO: SAULO MCCARTHY MD DATE OF PRINTIN05/11/2021 ############################## ############################## ############ [...] of Pathology and Laboratory Medicine of the [facility] ([employer]) in compliance with CLIA'88 regulations. [...] of Pathology and Laboratory Medicine of the [facility]. It has not been cleared or approved by the FDA. The FDA has determined that such clearance or approval is not necessary. Specimen Other (Specify) Performing Organization Address City/State/ZIP Code P ash Number [facility] [address] [place] [address] * CBC AND DIFF (05/06/2021 6:09 AM CDT) Only the most recent of 4 results within the time period is included. White Blood 5.9 4.5 - 11.0 K/UL [facility] Cells RBC 3.80 (L) 4.0 - 5.0 M/UL [facility] Hemoglobin 11.8 (L) 12.0 - 15.0 [...] P ash Number [facility] [address] [place] [address] * COMPREHENSIVE METABOLIC PANEL (05/06/2021 6:09 AM CDT) Only the most recent of 2 results within the time period is included. Sodium 138 137 - 147 MMOL/L [facility] [...] ALT (SGPT) 14 7 - 56 U/L [facility] Anion Gap 8 3 - 12 [facility] eGFR Non >60 >60 mL/min [facility] Comment: Egyptian The eGFR is not validated f or use in drug dosing adjustments. Continue to use estimated creatinine clearance per dosing reference text. Please contact the Clinical Pharmacist for questions. eGFR >60 >60 mL/min [facility] Egyptian Comment: The eGFR is not validated for use in drug dosing adjustments. Continue to use estimated creatinine clearance per dosing reference text. Please contact the Clinical Pharmacist for questions. Specimen Blood Performing Organization Address City/State/ZIP Code P ash Number [facility] [address] [place] [address] * COVID-19 (SARS-COV-2) PCR (05/05/2021 11:55 PM CDT) Only the most recent of 2 results within the time period is included. COVID-19 FLOCKED SWAB [facility] (SARS-CoV-2) NASOPHARYNGEAL PCR Source COVID-19 NOT DETECTED DN-NOT DETECTED [facility] (SARS-CoV-2) Comment: PCR This assay [...] performance characteristics have been verified by the [facility]. Fact sheet for providers: https://www.fda.gov/media/0330 85/download Fact sheet for patients: https://www.fda.gov/media/1612 87/download Specimen Flocked Swab - Nasopharyngeal Performing Organization Address City/State/ZIP Code P ash Number [facility] [address] [place] [address] * US OB TRANSVAGINAL (05/05/2021 10:05 PM [...] Number [facility] RAD RESULTS * US OB LT 14 WKS TRANSAB [...] (05/05/2021 10:02 PM CDT) ABO/RH(D) A POS [facility] Specimen Lung Performing Organization Address City/State/ZIP Code P ash Number [facility] [address] [place] [address] * UA REFLEX LABEL (05/05/2021 8:54 PM CDT) UA Reflex Criteria for reflex to culture [facility] Culture are WBC>10, Positive Nitrit e, and/or >=+1 leukocytes. If quantity is not sufficient, an addendum will follow. Specimen Urine Performing Organization Address [facility] P ash Number [facility] [address] [place] [phone] * URINALYSIS MICROSCOPIC REFLEX TO CULTURE (05/05/2021 [...] Epithelial Cells Specimen Urine Performing Organization Address [facility] P ash Number [facility] [address] [place] [phone] * URINALYSIS DIPSTICK REFLEX TO CULTURE (05/05/2021 8:54 PM CDT) Color,UA YELLOW [facility] Turbidity,UA 2+ (A) CLEAR-CLEAR [facility] Specific 1.012 1.003 - 1.035 [facility] [place]-Urine pH,UA 7.0 5.0 - 8.0 [facility] MAIN [...] Acid, UA Specimen Urine Performing Organization Address [facility] P ash Number [facility] [address] [place] [phone] * PTT (APTT) (05/05/2021 8:54 PM CDT) APTT 29.2 24.0 - 36.5 SEC [facility] Specimen Blood Performing Organization Address City/[facility]/ZIP Code P ash Number [facility] [address] [place] [address] * PROTIME INR (PT) (05/05/2021 8:54 PM CDT) INR 1.1 0.8 - 1.2 [facility] Specimen Blood Performing Organization Address City/[facility] Code P ash Number [facility] [address] [place] [address] * TYPE & CROSSMATCH (05/05/2021 8:54 PM CDT) Units Ordered 0 MAIN LAB Crossmatch 05/08/2021,2359 MAIN LAB Expires Record Check 2ND TYPE REQUIRED MAIN LAB ABO/RH(D) A POS MAIN LAB Antibody Screen NEG MAIN LAB Electronic YES MAIN LAB Crossmatch Specimen Lung Performing Organization Address City/[facility] Code P ash Number MAIN LAB [address] [place] [address] * MAGNESIUM (05/05/2021 8:54 PM CDT) Magnesium 2.2 1.6 - 2.6 mg/dL MAIN LAB Specimen Blood Performing Organization Address City/[facility] P ash Number MAIN LAB [address] [place] [address] * Critical Care (05/05/2021 8:33 PM CDT) [...] I personally per formed the procedure myself. * [facility] SPINE CHEMODENERVATION EXTREMITY MUSCLES (04/30/2021 12:30 [...] Code P ash Number OTHER OUTSIDE LAB * 2D + DOPPLER ECHO (03/06/2021 11:24 AM CDT) BSA 1.82 m2 OTHER OUTSIDE LAB IVS 0.80 0.6 - 0.9 cm OTHER OUTSIDE LAB LVIDD 4.70 3.8 - 5.2 cm OTHER OUTSIDE LAB LVIDS 2.90 2.2 - 3.5 cm OTHER OUTSIDE LAB PW 1.30 0.6 - 0.9 cm OTHER OUTSIDE LAB TDI lateral e' 0.11 m/s OTHER OUTSIDE LAB LA size 3.20 2.7 - 3.8 cm OTHER OUTSIDE LAB AV peak 1.65 m/s OTHER OUTSIDE velocity LAB Sinus 3.10 2.4 - 3.6 cm OTHER OUTSIDE LAB MV stenosis 97.00 ms OTHER OUTSIDE pressure 1/2 LAB time MV Peak A Norberto 1.17 m/s OTHER OUTSIDE LAB MV Peak E Norberto 1.81 m/s OTHER OUTSIDE PW LAB MV mean 7.00 mmHg OTHER OUTSIDE gradient LAB MV VTI 52.90 cm OTHER OUTSIDE LAB Proximal aorta 2.50 1.9 - 3.5 cm OTHER OUTSIDE LAB Right Heart 2.53 >1.7 cm OTHER OUTSIDE Systolic Mmode LAB TAPSE Right 2.20 1.9 - 3.5 cm OTHER OUTSIDE Ventricular Mid LAB Diameter Right 3.40 2.5 - 4.1 cm OTHER OUTSIDE Ventricular LAB Basal Diameter Right Atrial 3.97 2.2 - 2.8 cm OTHER OUTSIDE Major Dimension LAB Right Atrial 11.30 <18 cm2 OTHER OUTSIDE Area LAB Right Heart 0.13 m/s OTHER OUTSIDE Systolic TDI S' LAB Referring Luis Gray OTHER OUTSIDE Provider LAB MV valve area 2.27 cm2 OTHER OUTSIDE P1/2 LAB FS 38.30 28 - 44 % OTHER OUTSIDE LAB EF 65.11 % OTHER OUTSIDE LAB LA volume 38 22 - 52 mL OTHER OUTSIDE LAB LV mass 176 67 - 162 g OTHER OUTSIDE LAB RWT 0.55 <=0.42 OTHER OUTSIDE LAB E/A ratio 1.55 OTHER OUTSIDE LAB TV rest 17 mmHg OTHER OUTSIDE pulmonary LAB artery pressure Lateral E/E' 16.45 OTHER OUTSIDE ratio LAB Left Atrium 20.88 16 - 34 OTHER OUTSIDE Index LAB Cardiology [employer] OTHER OUTSIDE Ultrasound LAB Machine Left Ventricle 97 43 - 95 g/m2 OTHER OUTSIDE Mass Index LAB TDI Medial e' 0.090 m/s OTHER OUTSIDE LAB Medial E/E' 20.11 OTHER OUTSIDE ratio LAB TR PEAK 1.9 m/s OTHER OUTSIDE VELOCITY LAB RV SYSTOLIC 14 OTHER OUTSIDE PRESSURE LAB RA PRESSURE 3 OTHER OUTSIDE LAB PADILLA'S 60 % OTHER OUTSIDE BIPLANE EF LAB ECHO EF 60 % OTHER OUTSIDE LAB Specimen Narrative Performed At OTHER OUTSIDE LAB Left ventricular systolic function is w ithin normal limits. LVEF 60% Bioprosthetic mitral valve is well-seat ed. Mean gradient is 7 mmHg. No regurgitation. No pericardial effusion. Estimated peak systolic pulmonary arter y pressure is 17 mmHg. Performing Organization Address City/State/ZIP Code P ash Number OTHER OUTSIDE LAB from Last 3 Months Insurance Type Payer Benefit Subscriber ID Effective Phone Address Plan / Dates Group Medicare MEDICARE MEDICARE [id number] 2006- PART A AND Present [id number] Advance Directives Patient Lead Qa Analyst Explanation Type Date Recorded Advance 05/05/2021 8:03 PM Directive/DPOA Date Inactivated Comments Code Status Date Activated 05/07/2021 1:17 PM Full Code 05/06/2021 12:43 AM Provider has discussed Code Status No, discussion no t w/Patient or Family? necessary based on Dx
--- NOTE | 2021-05-12 16:32 | ED GU-Female ---
General Stated Complaint: ECTOPIC REMOVED/CRAMPING Source: patient Exam Limitations: no limitations (DREAD BEARD MD) History of Present Illness Date Seen by Provider: May 12, 2021 Time Seen by Provider: 16:15 Initial Comments Patient is a 40-year-old female who presents to the emergency department today with a chief complaint of sharp lower pelvic abdominal cramping. Patient states it is worsened in the last 24 hours. She relates a story of having been diagnosed with an ectopic last week, seen and treated at . Patient states that she had an ectopic lodged in her cervix. She states she was inpatient for 4 days from Tuesday to last week. She states on discharge her quantitative hCG was 8000. When she called the clinic today they recommended she come to the emergency room for repeat quantitative hCG and ultrasound. Patient denies any fevers, chills, foul-smelling vaginal discharge. She states she only has blood "when I wipe". No burning with urination, urgency or frequency. She tells me she was given methotrexate for the ectopic last week. She was also given a shot of something she cannot remember to "counteract the side effects of the methotrexate". Patient states that she ran out of her oxycodone pain medications on Tuesday. She denies nausea or vomiting but states she has decreased appetite. All other review of systems reviewed and negative except as stated. Timing/Duration: this morning Severity/Quality: severe, sharp, stabbing Location: suprapubic Radiation: none Activities at Onset: none (DREAD BEARD MD) Allergies and Home Medications Allergies Coded Allergies: metronidazole (Unverified Allergy, Unknown, 09/23/19) Patient Home Medication List Home Medication List Reviewed: Yes (ALMAZ MILLER MD) Baclofen (Baclofen) 20 Mg Tablet, (Reported) Entered as Reported by: MATHEW HUTCHINSON on 04/01/201912 Carbamazepine (Carbamazepine ER) 400 Mg Tab.er.12h, (Reported) Entered as Reported by: MATHEW HUTCHINSON on 04/01/201912 Carbamazepine (Carbamazepine ER) 200 Mg Tab.er.12h, (Reported) Entered as Reported by: MATHEW HUTCHINSON on 04/01/201912 Escitalopram Oxalate (Escitalopram Oxalate) 10 Mg Tablet, (Reported) Entered as Reported by: MATHEW HUTCHINSON on 04/01/201912 Mirtazapine (Mirtazapine) 45 Mg Tablet, (Reported) Entered as Reported by: MATHEW HUTCHINSON on 04/01/201912 Oxycodone HCl/Acetaminophen (Oxycodone-Acetaminophen 5-325) 1 Each Tablet, 1 EACH PO Q6H PRN for PAIN-MODERATE Prescribed by: DREAD BEARD on 05/12/21 182 Penicillin V Potassium (Penicillin V Potassium) 500 Mg Tablet, 500 MG PO QID Prescribed by: ALLYN BARRERA on 02/08/21 171 Zonisamide (Zonisamide) 100 Mg Capsule, (Reported) Entered as Reported by: MATHEW HUTCHINSON on 04/01/201912 Review of Systems Review of Systems Constitutional: see HPI EENTM: no symptoms reported Respiratory: no symptoms reported Cardiovascular: no symptoms reported Gastrointestinal: abdominal pain, nausea Genitourinary: no symptoms reported : No Musculoskeletal: no symptoms reported Skin: no symptoms reported Psychiatric/Neurological: Anxiety (DREAD BEARD MD) All Other Systemes Reviewed Negative Unless Noted: Yes (DREAD BEARD MD) Past Unahpzl-Zpocpd-Axvvjb Hx Immunizations Up To Date Tetanus Booster (TDap): Unknown (DREAD BEARD MD) Seasonal Allergies Seasonal Allergies: No (DREAD BEARD MD) Past Medical History Surgeries: Yes (Mitral valve replacement x 2, craniotomy, MIHIR procedure) Cardiac, Gallbladder, Neurological, Tonsillectomy, Valve Replacement Respiratory: No Cardiac: Yes (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) Endocarditis, Valvular Heart Disease Neurological: Yes (RIGHT ARM PARALYSIS W/ CONTRACTURES;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 DUE TO ENDOCARDITIS DUE TO IV HEROIN USE -LEFT CRANIOTOMY DUE TO "BLOOD CLOT ON BRAIN" -"MIHIR PROCEDURE" ON COLON -CHOLECYSTECTOMY -CYST REMOVAL (DREAD BEARD MD) Physical Exam Vital Signs Vital Signs - First Documented 05/12/21 16:13 Temp 38.1 Pulse 85 Resp 16 B/P (MAP) 119/62 (81) Pulse Ox 100 O2 Delivery Room Air (ALMAZ MILLER MD) Vital Signs Capillary Refill : (DREAD BEARD MD) Height, Weight, BMI Height: '" Weight: lbs. oz. kg; 18.00 BMI Method: General Appearance: WD/WN, mild distress (anxious) HEENT: PERRL/EOMI Neck: full range of motion Cardiovascular: regular rate, rhythm Respiratory: lungs clear, normal breath sounds, no respiratory distress, no accessory muscle use Gastrointestinal: normal bowel sounds, non tender, soft Back: no CVA tenderness Extremities: normal range of motion, non-tender, normal inspection Neurologic/Psychiatric: no motor/sensory deficits, alert, normal mood/affect, oriented x 3 Skin: normal color, warm/dry (DREAD BEARD MD) Progress/Results/Core Measures Suspected Sepsis SIRS Temperature: Pulse: Respiratory Rate: Laboratory Tests 05/12/21 16:46: White Blood Count 11.0 Blood Pressure / Mean: Laboratory Tests 05/12/21 16:46: Platelet Count 177 (DREAD BEARD MD) Results/Orders Lab Results Laboratory Tests Test 05/12/21 16:46 Range/Units White Blood Count 11.0 4.3-11.0 10^3/uL Red Blood Count 3.64 L 3.80-5.11 10^6/uL Hemoglobin 11.6 11.5-16.0 g/dL Hematocrit 34 L 35-52 % Mean Corpuscular Volume 94 80-99 fL Mean Corpuscular Hemoglobin 32 25-34 pg Mean Corpuscular Hemoglobin Concent 34 32-36 g/dL Red Cell Distribution Width 12.4 10.0-14.5 % Platelet Count 177 130-400 10^3/uL Mean Platelet Volume 10.4 9.0-12.2 fL Immature Granulocyte % (Auto) 0 % Neutrophils (%) (Auto) 83 H 42-75 % Lymphocytes (%) (Auto) 11 L 12-44 % Monocytes (%) (Auto) 4 0-12 % Eosinophils (%) (Auto) 1 0-10 % Basophils (%) (Auto) 0 0-10 % Neutrophils # (Auto) 9.2 H 1.8-7.8 10^3/uL Lymphocytes # (Auto) 1.2 1.0-4.0 10^3/uL Monocytes # (Auto) 0.5 0.0-1.0 10^3/uL Eosinophils # (Auto) 0.1 0.0-0.3 10^3/uL Basophils # (Auto) 0.0 0.0-0.1 10^3/uL Immature Granulocyte # (Auto) 0.0 0.0-0.1 10^3/uL Human Chorionic Gonadotropin, Quant 1666 H <5 MIU/ML (ALMAZ MILLER MD) My Orders Orders - ALMAZ MILLER MD Oxycodone/Apap 5/325mg Tablet (Percocet (05/12/21 19:30) (ALMAZ MILLER MD) Medications Given in ED Current Medications Medications Dose Ordered Sig/Lita Route Start Time Stop Time Status Last Admin Dose Admin Ketorolac Tromethamine 30 mg ONCE ONCE IVP 05/12/21 18:45 05/12/21 18:46 DC 05/12/21 18:45 30 MG Oxycodone/ Acetaminophen 1 tab ONCE ONCE PO 05/12/21 19:30 05/12/21 19:31 DC 05/12/21 19:48 1 TAB (ALMAZ MILLER MD) Vital Signs/I&O 05/12/21 05/12/21 16:13 19:53 Temp 38.1 38.1 Pulse 85 65 Resp 16 16 B/P (MAP) 119/62 (81) 100/51 Pulse Ox 100 100 O2 Delivery Room Air Room Air (ALMAZ MILLER MD) Vital Signs/I&O Capillary Refill : (DREAD BEARD MD) Progress Note : Time: 18:16 Progress Note Long discussion with the patient regarding her results. I advised that cystic structures/complex fluid was still located in her cervix. She has a thickened uterine lining. Hemoglobin is normal. Quantitative hCG is down to 1600. She states that she will follow up at . She request that the ultrasound be clouded to so that her doctor can see it. She did not think it was necessary at this time for me to talk to our OB on-call. As the patient has stable vital signs, is not actively bleeding/hemorrhaging, has a normal hemoglobin and decreasing quantitative hCG I think it is reasonable that she call and follow-up with her OB provider tomorrow. She declined me call the oncall provider here at via [facility]. She does request contact information for a local ZOOLOGY TEACHER. I will provide Dr. Obregon as referral locally. All questions are sought and answered. Patient is stable for discharge. 1831 I am going to wait in discharge for the official US read. (DREAD BEARD MD) Progress Note : Time: 19:25 Progress Note Care of this patient was assumed from Dr. Beard at shift change. We were awaiting ultrasound report. Ultrasound has been reviewed with Dr. Forman. She has no surgical emergency evident on ultrasound. It is acceptable for her to follow-up with her primary internal grinding machine operator and primary care provider. She did ask me about Tylenol dosing since she has a history of "liver problems". I have encouraged her to not exceed 4000 mg of acetaminophen in a day and to discuss acetaminophen dosing with her primary care provider soon as possible. She states the Toradol given to her did not help her pain much. A dose of Percocet is being given prior to discharge. See discharge instructions. (ALMAZ MILLER MD) Diagnostic Imaging Diagonstic Imaging: Ultrasound Plain Films/CT/US/NM/MRI: pelvis Comments NAME: G[facility]EL[facility] REC#: [id number] PT STATUS: REG ER : 1980 PHYSICIAN: DREAD BEARD MD ADMIT DATE: 05/12/21/ER Signed Date of Exam:05/12/21 US NON OB PELVIS COMP/TRANSVAG PROCEDURE: Pelvic comp/transvaginal sonogram. TECHNIQUE: Complete transabdominal and transvaginal pelvic ultrasound was performed. In addition, limited pelvic Doppler was performed. INDICATION: Pelvic pain. Patient reportedly had a recent ectopic with methotrexate administration 1 week ago. FINDINGS: The uterus measures 8.8 x 5.2 x 4.9 cm. There is a complex cystic mass which appears to be in the region of the endocervical canal which could represent retained products of conception. The endometrium is approximately 10 mm in thickness and is heterogeneous. No myometrial mass is identified. Right ovary measures 2.7 x 2.4 x 1.5 cm and shows normal vascularity. The left ovary measures 4.0 x 2.9 x 2.6 cm. The left ovary does contain a 2.8 cm simple cyst. There is also a more complex cyst measuring approximately 2.4 cm. No free fluid is seen. There is vascularity to both ovaries. IMPRESSION: 1. Findings suggestive of retained products of conception in the region of the cervix and the endocervical canal. No definite intrauterine or ectopic is identified. 2. A left-sided ovarian cyst. Dictated by: Dictated on workstation # [id number] Dict: 05/12/211850 Trans: 05/12/211921 [facility] [id number] Interpreted by: RAJINDER FORMAN MD Electronically signed by: RAJINDER FORMAN MD 05/12/211921 Reviewed: Reviewed by Me, Discussed w/Radiologist (ALMAZ MILLER MD) Departure Impression Primary Impression: Pelvic pain Additional Impression: S/P ectopic Disposition: 01 HOME, SELF-CARE Condition: Stable Departure-Patient Inst. Decision time for Depature: 18:30 (DREAD BEARD MD) Referrals: [facility] (PCP) Primary Care Physician MADDISON CHAVIS (Family) Primary Care Physician YSEY OBREGON DO Patient Instructions: Pelvic Pain Add. Discharge Instructions: Continue daily medications as prescribed. I have sent a prescription for pain medications to [facility]. Take 1 pill every 6 hours as needed for severe pain. You can also take ihok-hmf-hoppw er ibuprofen or Tylenol with food as needed for pain. Do not take Tylenol with the prescribed oxycodone. Return to the emergency room for worsening pain especially with fever, foul- smelling vaginal discharge, increasing bleeding or any other emergent concerning symptoms. You may take oxycodone as prescribed. For more mild pain you may also take Tylenol (acetaminophen). Be sure that your total acetaminophen dosing including the acetaminophen associated with the oxycodone does not exceed 4000 mg in 1 day . Please call your primary care provider tomorrow to discuss acetaminophen dosing in context of your history of liver issues. Please call and follow-up with your OB provider at tomorrow. I have sent your ultrasound images to for them to review. Scripts Oxycodone HCl/Acetaminophen (Oxycodone-Acetaminophen 5-325) 1 Each Tablet 1 EACH PO Q6H PRN for PAIN-MODERATE MDD 6, #10 TAB 0 Refills Prov: DREAD BEARD MD 05/12/21 Copy Copies To 1: LLOYD CHACON KATHRYN M MD May 12, 2021 16:32 ALMAZ MILLER MD May 12, 2021 19:27
[2021-05-12 16:56] LABS: BASOPHILS % (AUTO) 0 % (0-10); EOSINOPHILS # (AUTO) 0.1 10^3/uL (0.0-0.3); EOSINOPHILS % (AUTO) 1 % (0-10); HEMATOCRIT 34 % (35-52); HEMOGLOBIN 11.6 g/dL (11.5-16.0); LYMPHOCYTES # (AUTO) 1.2 10^3/uL (1.0-4.0); LYMPHOCYTES % (AUTO) 11 % (12-44); MEAN CORPUSCULAR HEMOGLOBIN 32 pg (25-34); MEAN CORPUSCULAR HGB CONC 34 g/dL (32-36); MEAN CORPUSCULAR VOLUME 94 fL (80-99); MEAN PLATELET VOLUME 10.4 fL (9.0-12.2); MONOCYTES # (AUTO) 0.5 10^3/uL (0.0-1.0); MONOCYTES % (AUTO) 4 % (0-12); NEUTROPHILS # (AUTO) 9.2 10^3/uL (1.8-7.8); NEUTROPHILS % (AUTO) 83 % (42-75); PLATELET COUNT 177 10^3/uL (130-400)
[2021-05-12] MEDS ORDERED: OXYC1TAB11 PO (18:29)
[2021-05-12] MEDS ORDERED: KETOROLAC 30 MG/ML VIAL IVP ONE (18:45)
--- NOTE | 2021-05-12 19:09 | Diagnostic Imaging Report ---
PROCEDURE: Pelvic comp/transvaginal sonogram. TECHNIQUE: Complete transabdominal and transvaginal pelvic ultrasound was performed. In addition, limited pelvic Doppler was performed. INDICATION: Pelvic pain. Patient reportedly had a recent ectopic with methotrexate administration 1 week ago. FINDINGS: The uterus measures 8.8 x 5.2 x 4.9 cm. There is a complex cystic mass which appears to be in the region of the endocervical canal which could represent retained products of conception. The endometrium is approximately 10 mm in thickness and is heterogeneous. No myometrial mass is identified. Right ovary measures 2.7 x 2.4 x 1.5 cm and shows normal vascularity. The left ovary measures 4.0 x 2.9 x 2.6 cm. The left ovary does contain a 2.8 cm simple cyst. There is also a more complex cyst measuring approximately 2.4 cm. No free fluid is seen. There is vascularity to both ovaries. IMPRESSION: 1. Findings suggestive of retained products of conception in the region of the cervix and the endocervical canal. No definite intrauterine or ectopic is identified. 2. A left-sided ovarian cyst. Dictated by: Dictated on workstation # [id number]
[2021-05-12] MEDS ORDERED: oxyCODONE/APAP 5/325MG (PERCOCET 5) TABLET PO ONE (19:30)
[2021-05-12 19:53] VITALS: BP 100/51
== END 2021-05-12 19:58 | disposition home or self-care (01) ==
LOC: EDUNIT# 16:05 → ER 16:07
DX: O00.91 Unspecified ectopic pregnancy with intrauterine pregnancy (principal); R10.2 Pelvic and perineal pain; F41.9 Anxiety disorder, unspecified; F32.9 Major depressive disorder, single episode, unspecified; G40.909 Epilepsy, unspecified, not intractable, without status epilepticus; Z86.73 Personal history of transient ischemic attack (TIA), and cerebral infarction without residual deficits; Z3A.00 Weeks of gestation of pregnancy not specified; Z79.899 Other long term (current) drug therapy
CPT/HCPCS: 36415; 76830; 76856; 84702; 85025; 86850; 86900; 86901

== ENCOUNTER 2021-06-15 16:28 | Emergency (ER) | payer MEDICARE ==
[~2021-06-15] VITALS: Ht 170.2 cm; Wt 63.5 kg
[~2021-06-15 16:28] MED LIST changes: +OXYC1TAB11 PO
--- OUTSIDE RECORDS SUMMARY | 2021-06-15 16:34 | XMS REPORT | Clinical Summary ---
Author Author [facility] Organization [facility] Address Unknown Phone Unavailable Care Team Providers Care Radiation Safety Officer Name Role Phone Luis Gray PA-C PCP Clem Little MD 100 Source Comments Some departments are not documenting in the electronic medical record. If you d o not see the information that you expected, contact Release of Information in [facility] Information Management department at [phone] for further assistan ce in locating additional records.[facility] Allergies Comments Active Allergy Reactions Severity Noted [...] every 6 hours as needed for Pain Active Problems Problem Noted Date , ectopic, [...] be differ ent from the original. 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 Following cardioembolic CVA 2008 Encounters Care Team Description Date Type Specialty Melanie Briggs, TEACHER ASSOCIATE-LEGAL PROJECT MANAGER Traumatic ecchymosis of left lower leg, initial encounter (Primary Dx) 06/12/2021 Office Visit Urgent Care Telehealth Abi Chery MD Other ectopic without intraute rine 05/15/2021 Hospital Lab Encounter Diane Szymanski MD Pierson, Genie M, MD , ectopic, cornual or cervical 05/05/2021 Hospital - Encounter 05/07/2021 05/05/2021 Hospital Encounter 05/05/2021 Travel Jadon Main MD Spasticity 04/30/2021 Procedure visit Rehabilitation [facility] 04/30/2021 Travel Jadon Main MD Spasticity (Primary Dx) 04/16/2021 Orders Only Rehabilitation [facility] Marzena Rouse PA-C 04/10/2021 Telephone Cardiology from Last 3 Months Surgical History [...] Date Recorded Female 12/13/2019 7:39 AM CDT Last Filed Vital Signs Reading Time Taken [...] Spasticity CHEMODENERVATION 12:30 PM CDT EXTREMITY MUSCLES from Last 3 Months Results * BETA-HCG (05/07/2021 4:35 AM CDT) Only the most recent of 3 results within the time period is included. Beta-HCG,Serum 8,816 (H) <5 U/L MAIN LAB Specimen Blood Performing Organization Address City/State/ZIP Code P ash Number MAIN LAB [address] [place] [address] * PATHOLOGY SURGICAL < 5 SPECIMENS (05/06/2021 12:15 PM CDT) PATHOLOGY [email or web address] Department of Pathology and Laboratory Medicine [address] [place] [address] Surgical Pathology Office: [phone] SURGICAL PATHOLOGY REPORT NAME: EDITH GARCIA SURG PATH #: [id number] MR #: [id number] SPECIMEN CLASS: SR BILLING #: [id number] ALT ID #: LOCATION: DISCHARGED DATE OF [...] report. +++ +++ Oralia Marshall DO, Resident bm/05/06/2021 ############################## ############################## ############ Material Received: A: aspirate tissue History: 40-year-old female with a history of cervical ectopic . Gross Description: A. Fixative: Formalin Labeled: "Aspirated tissue" Weight: 6 grams Measurement: 7.6 x 2.5 x 0.4 cm organs identified: No The specimen is entirely submitted in cassettes A1-A4. (apple) 05/06/2021 If immunohistochemical stains and/or in situ hybridization are cited in this report, the performance characteristics were determined by the Department of Pathology and Laboratory Medicine of the [facility] ([employer]) in compliance with [...] of Pathology and Laboratory Medicine of the [facility]. It has not been cleared or approved by the FDA. The FDA has determined that such clearance or approval is not necessary. Specimen Other (Specify) Performing Organization Address City/State/ZIP Code P ash Number MAIN LAB [address] [place] [address] * CBC AND DIFF (05/06/2021 6:09 AM [...] P ash Number [facility] [address] [place] [address] * COMPREHENSIVE METABOLIC PANEL (05/06/2021 6:09 AM [...] >60 >60 mL/min [facility] Comment: [facility] The eGFR is not validated f or use in drug dosing adjustments. Continue to use estimated creatinine clearance per dosing reference text. Please contact the Clinical Pharmacist for questions. eGFR >60 >60 mL/min [facility]IN [facility] Comment: The eGFR is not validated for use in drug dosing adjustments. Continue to use estimated creatinine clearance per dosing reference text. Please contact the Clinical Pharmacist for questions. Specimen Blood Performing Organization Address City/State/ZIP Code P ash Number [facility] MAIN [facility] [address] [place] [address] * COVID-19 (SARS-COV-2) PCR (05/05/2021 11:55 PM CDT) COVID-19 FLOCKED SWAB [facility] (SARS-CoV-2) NASOPHARYNGEAL PCR Source COVID-19 NOT DETECTED DN-NOT DETECTED [facility] (SARS-CoV-2) Comment: PCR This assay is designed [...] performance characteristics have been verified by the [facility] Clinical Laboratories. Fact sheet for providers: https://www.fda.gov/media/3920 85/download Fact sheet for patients: https://www.fda.gov/media/5450 87/download Specimen Flocked Swab - Nasopharyngeal Performing Organization Address City/State/ZIP Code P ash Number [facility] LAB [address] [place] [address] * US OB TRANSVAGINAL (05/05/2021 10:05 PM [...] MAIN LAB Specimen Lung Performing Organization Address [facility]/ZIP Code P ash Number MAIN LAB [address] [place] [address] * UA REFLEX LABEL (05/05/2021 8:54 PM CDT) UA Reflex Criteria for reflex to culture [facility] Culture are WBC>10, Positive Nitrit e, and/or >=+1 leukocytes. If quantity is not sufficient, an addendum will follow. Specimen Urine Performing Organization Address City/[facility]/ZIP Code P ash Number MAIN LAB [address] [place] [address] * URINALYSIS MICROSCOPIC REFLEX TO CULTURE (05/05/2021 8:54 PM CDT) WBCs,UA NONE 0 - 2 /HPF MAIN LAB RBCs,UA NONE 0 - 3 /HPF [facility] MAIN [facility] Comment,UA Criteria for reflex to culture [facility] are WBC>10, Positive Nitrite, and/or >=+1 leukocytes. If quantity is not sufficient, an addendum will follow. Squamous 10-20 0 - 5 [facility] MAIN LAB Epithelial Cells Specimen Urine Performing Organization Address [facility] P ash Number [facility] MAIN LAB [address] [phone] * URINALYSIS DIPSTICK REFLEX TO CULTURE (05/05/2021 8:54 PM CDT) Color,UA YELLOW [facility] MA[facility] Turbidity,UA 2+ (A) CLEAR-CLEAR [facility] MAIN [facility] Specific 1.012 1.003 - 1.035 [facility] MAIN LAB [place]-Urine pH,UA 7.0 5.0 - 8.0 [facility] MAIN [...] Acid, UA Specimen Urine Performing Organization Address [facility] P ash Number [facility] MAIN [facility] [address] [phone] * PTT (APTT) (05/05/2021 8:54 PM CDT) APTT 29.2 24.0 - 36.5 SEC [facility] MAIN LAB Specimen Blood Performing Organization Address [facility]/ZIP [facility] P ash Number [facility] MAIN [facility] [address] [place] [address] * PROTIME INR (PT) (05/05/2021 8:54 PM CDT) INR 1.1 0.8 - 1.2 [facility] MAIN LAB Specimen Blood Performing Organization Address [facility] P ash Number [facility] MAIN [facility] [address] [phone] * TYPE & CROSSMATCH (05/05/2021 8:54 PM CDT) Units Ordered 0 [facility] MAIN LAB Crossmatch 05/08/2021,2359 MAIN LAB Expires Record Check 2ND TYPE REQUIRED MAIN LAB ABO/RH(D) A POS MAIN LAB Antibody Screen NEG MAIN LAB Electronic YES MAIN LAB Crossmatch Specimen Lung Performing Organization Address City/State/ZIP Code P ash Number MAIN LAB [address] [place] [address] * MAGNESIUM (05/05/2021 8:54 PM CDT) Magnesium 2.2 1.6 - 2.6 mg/dL [facility] MAIN LAB Specimen Blood Performing Organization Address City/[facility]/ZIP Code P ash Number MAIN LAB [address] [place] [address] * Critical Care (05/05/2021 8:33 PM CDT) [...] personally per formed the procedure myself. * DREA AMB SPINE CHEMODENERVATION EXTREMITY MUSCLES (04/30/2021 12:30 [...] Plan / Dates Group Medicare MEDICARE MEDICARE [id number] 2006- PART A AND Present B (Home) [place] [address] Advance Directives Patient Director Of Healthcare Systems Explanation Type Date Recorded Advance 05/05/2021 8:03 PM Directive/DPOA Date Inactivated Comments Code Status Date Activated 05/07/2021 1:17 PM Full Code 05/06/2021 12:43 AM Provider has discussed Code Status No, discussion no t w/Patient or Family? necessary based on Dx
--- OUTSIDE RECORDS SUMMARY | 2021-06-15 16:34 | XMS REPORT | Encounter Summary ---
Author Author [facility] Organization [facility] Address Unknown Phone Unavailable Care Team Providers Care Dry Cleaning Checker Name Role Phone Luis Gray PA-C PCP Clem Little MD 100 Encounter Details Care Team Description [place] [address] [facility] [place] [address] [place] [address] [phone] Other ectopic without intraute rine 05/15/2021 Hospital Laboratory: Main [facility] mpus, Encounter [facility] [address] [facility] [address] [place] [address] Social History Date Tobacco Use Types Packs/Day [...] impairment: No documented as of this encounter Medications at Time of Discharge [...] A DAY documented as of this encounter Discharge Disposition Code Departure Means Destination Disposition Home Home or Self Care documented in this encounter Plan of Treatment [...]
--- OUTSIDE RECORDS SUMMARY | 2021-06-15 16:34 | XMS REPORT | Encounter Summary ---
Author Author [facility] Organization [facility] Address Unknown Phone Unavailable Care Team Providers Care Bead Wire Taper Name Role Phone Luis Gray PA-C PCP Clem Little MD 100 Reason for Visit * Reason Comments Leg Pain Encounter Details Care Team Description Date Type Department Melanie Briggs, LICENSED PSYCHOLOGIST-PRODUCE SHIPPER [address] [place] [address] [phone] Traumatic ecchymosis of left lower leg, initial encounter (Primary Dx) 06/12/2021 [facility] [address] [facility] [address] Social History Date Tobacco Use Types Packs/Day [...] this encounter Patient Instructions * Patient Instructions* Melanie Briggs, LICENSED PSYCHOLOGIST-PRODUCE SHIPPER - 06/12/2021 5:45 PM CDT Images from the original note were not included. Soft Tissue Bruise (Contusion) You have a bruise (contusion). There is swelling and some bleeding under the ski n. This injurygenerallytakes a few days to a few weeks to heal. During sean t time, the bruise will typically change in color fromreddish, to purple-blue, to greenish-yellow, then to yellow-brown. Home care Elevate the injured area to reduce pain and swelling.As much as possible, s it or lie down with the injured area raised about the level of your heart.This is especially important during the first 48 hours. Ice the injured area to help reduce pain and swelling.Wrap an ice pack in a thin towel. Apply to the bruised area for 20 minutes every 1 to 2 hours the . Continue this 3 to 4 times a day until the pain and swelling goes away. You can make an ice pack by placing ice cubes in a plastic bag. Unless another medicine was prescribed, you can take acetaminophen, ibuprofen , or naproxento control pain. Talk with your doctor before using these medicin es if you have chronic liver or kidney disease or ever had a stomach ulcer or di gestive bleeding. Follow-up care Follow up with your healthcare provider, or as advised. Call if you are not bett er in 1 to 2 weeks. When to seek medical advice Call your healthcare provider right away if you have any of the following: Increased pain or swelling Bruise is on an arm or leg and arm or leg becomes cold, blue, numb or tingly Signs of infection:Warmth, drainage, or increased redness or pain around th e contusion Inability to move the injured area or body part Bruise is near your eye and you have problems with your eyesight or eye Frequent bruising for unknown reasons [employer] last reviewed this educational content on 06/08/201919996260-1791 [facility]. All rights reserved. This information is not intended as a substitute for professional medical care. Always follow your healthcare professional's instructions. documented in this encounter Progress Notes * Melanie Briggs APRN-NP - 06/12/2021 5:45 PM CDT Images from the original note were not included. Telehealth Visit Note Date of Service: 06/12/2021 Subjective: Obtained patient's verbal consent to treat them and their agreement to [facility] policy and NPP via this telehealth visit [facility] Edith Garcia is a 40 y.o. female. 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 She was hit in the leg with a coffee cup handle. It hit the back of her left leg and it seemed to have ruptur ed the vein. It is bruised and the varicose vein was gone. Pain is a throbbing pain that feels like a levy horse. This happened around 11:30. 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 Her last stroke with in 2007. Pt is on a baby ASA due to hx of heart surgery x2. Review of Systems Objective: acetaminophen SR (TYLENOL) 650 mg tablet Take one tablet by mouth every 6 ho urs as needed for Pain. aspirin 81 mg chewable tablet Chew 81 mg by mouth daily. Take with food. baclofen (LIORESAL) 20 mg tablet TAKE TWO TABLETS BY MOUTH THREE TIMES A DAY bisacodyL (DULCOLAX) 5 mg tablet Take 10-15 mg by mouth three times weekly. carBAMazepine XR (TEGRETOL XR) 400 mg tablet TAKE ONE TABLET BY MOUTH TWICE A DAY diphenhydrAMINE hcl (BENADRYL ALLERGY) 25 mg tablet Take 50 mg by mouth at b edtime as needed. Indications: an allergic reaction, sneezing docusate (COLACE) 100 mg capsule Take 100-200 mg by mouth daily as needed fo r Constipation. escitalopram oxalate (LEXAPRO) 10 mg tablet Take 10 mg by mouth daily. Take with 5 mg for total dose of 15 mg. escitalopram oxalate (LEXAPRO) 5 mg tablet Take 5 mg by mouth daily. mirtazapine (REMERON) 45 mg tablet Take 22.5 mg by mouth at bedtime daily. oxyCODONE (ROXICODONE) 5 mg tablet Take one tablet by mouth every 6 hours as needed for Pain zonisamide (ZONEGRAN) 100 mg capsule TAKE THREE CAPSULES BY MOUTH TWICE A DA Y There were no vitals filed for this visit. There is no height or weight on file to calculate BMI. Physical Exam Constitutional: General: She is not in acute distress. Appearance: Normal appearance. She is normal weight. She is not ill-appearing , toxic-appearing or diaphoretic. HENT: Head: Normocephalic and atraumatic. Skin: Findings: Bruising present. Neurological: Mental Status: She is alert and oriented to person, place, and time. Psychiatric: Mood and Affect: Mood normal. Behavior: Behavior normal. Thought Content: Thought content normal. Judgment: Judgment normal. Discussed with pt that she can ice and continue to monitor her leg from home. H jo, with her hx of factor 5, stroke, heart surgery, she should go to the ER if she develops any worsening symptoms, shortness of breath, chest pain, stroke like symptoms. Pt stated understanding. Assessment and Plan: Edith Garcia was seen today for leg pain. Diagnoses and all orders for this visit: Traumatic ecchymosis of left lower leg, initial encounter Patient Instructions Soft Tissue Bruise (Contusion) You have a bruise (contusion). There is swelling and some bleeding under the ski n. This injurygenerallytakes a few days to a few weeks to heal. During sean t time, the bruise will typically change in color fromreddish, to purple-blue, to greenish-yellow, then to yellow-brown. Home care Elevate the injured area to reduce pain and swelling.As much as possible, s it or lie down with the injured area raised about the level of your heart.This is especially important during the first 48 hours. Ice the injured area to help reduce pain and swelling.Wrap an ice pack in a thin towel. Apply to the bruised area for 20 minutes every 1 to 2 hours the . Continue this 3 to 4 times a day until the pain and swelling goes away. You can make an ice pack by placing ice cubes in a plastic bag. Unless another medicine was prescribed, you can take acetaminophen, ibuprofen , or naproxento control pain. Talk with your doctor before using these medicin es if you have chronic liver or kidney disease or ever had a stomach ulcer or di gestive bleeding. Follow-up care Follow up with your healthcare provider, or as advised. Call if you are not bett er in 1 to 2 weeks. When to seek medical advice Call your healthcare provider right away if you have any of the following: Increased pain or swelling Bruise is on an arm or leg and arm or leg becomes cold, blue, numb or tingly Signs of infection:Warmth, drainage, or increased redness or pain around th e contusion Inability to move the injured area or body part Bruise is near your eye and you have problems with your eyesight or eye Frequent bruising for unknown reasons [employer] last reviewed this educational content on 06/08/201919999290-6116 [facility]. All rights reserved. This information is not intended as a substitute for professional medical care. Always follow your healthcare professional's instructions. 5 minutes spent on this patient's encounter with counseling and coordination of care taking >50% of the visit. documented in this encounter Plan of Treatment Not on filedocumented as of this encounter Visit Diagnoses Diagnosis Traumatic ecchymosis of left lower leg, initial encounter - Primary documented in this encounter Additional Health Concerns Assessment Noted Time A fall risk assessment has been completed for the pat ient 05/07/2021 8:50 AM CDT PHQ-2 Depression Total Score: 2 02/27/2021 10:36 AM CDT documented as of this encounter
--- OUTSIDE RECORDS SUMMARY | 2021-06-15 16:35 | XMS REPORT | Encounter Summary ---
Author Author [facility] Organization [facility] Address Unknown Phone Unavailable Care Team Providers Care National Insurance Officer Name Role Phone Luis Gray PA-C PCP Clem Little MD 100 Encounter Details Care Team Description Date Type Department 05/05/2021 Hospital Patient Care Unit B H56: Encounter Main [place], [facility] [address] [facility] [address] [place] [address] Social History Date Tobacco Use [...]
--- OUTSIDE RECORDS SUMMARY | 2021-06-15 16:35 | XMS REPORT | Encounter Summary ---
Author Author [facility] Organization [facility] Address Unknown Phone Unavailable Care Team Providers Care Urgent Care Physician Assistant Name Role Phone Luis Gray PA-C PCP Clem Little MD 100 Reason for Visit * Reason Comments Problem confirmed ectopic , hx of 3 strokes, heart surgeries, craniotomy, bleeding x2 weeks * Auth/Cert Referred By Contact Referred To Contact Status Reason Specialty Diagnoses / Procedures Diagnoses , ectopic, cornual or cervical Encounter Details Care Team Description Date Type Department Diane Szymanski MD [address] [facility] [place] [address] Nirali Meier MD [address] [place], [place] [id number] , ectopic, cornual or cervical 05/05/2021 Hospital Patient Care Unit B H56: - Encounter Main [place], Main 05/07/[address] [place] [address] [address] [place] [address] Social History Date Tobacco Use [...] Attending: Dr. Goins Discharge Summary Completed By: Trav Acharya MD Service: Gynecology Reason for hospitalization: [...] the patient was asymptomatic. She was dischar [facility] home in hemodynamically stable condition [...] Abi Chery MD Reproductive Endocrinology and Infertility: [facility], [address] (SHEARING SUPERVISOR) [address], [address] [facility] [phone] Jul 30, 2021 10:00 AM Procedure with Jadon Main MD Comprehensive Spine Center Rehab Med: [facility], [facility] (Spine Center - [facility] & [facility]) [address], [address] [facility] [address] Aug 13, 2021 11:30 AM Office visit with Vick Forde MD Epilepsy Center and Neurology Sleep Medicine: [facility] (Neurology) [address] [facility] [address] [facility] [address] Aug 13, 2021 3:30 PM Office visit with Vishnu Nation MD Cardiology: [facility], [address] ([facility] Exam) [address], [address] [facility] [phone] Additional appointment instructions: Dr. Chery will contact [...] ID 05/06/2021 [id number] 05/07/2021 1317 Full Code [id number] C[facility] MD [facility] Patient Instructions Regular Diet You have no [...] or concerns regarding your hospital stay, call [phone]. Discharging attending physician: PATY GOINS [[id number]] Activity as Tolerated It is important to [...] these labs, which can be done at [place] and sent to her. Additional Orders: Case Management, Supplies, Home Health Home Health/DME None Signed: Trav Acharya MD 05/09/2021 cc: Primary Care Physician: Luis Gray Verified Referring physicians: No ref. provider found Additional provider(s): Did we miss something? If additional records are needed, please fax a request on office letterhead to [phone]. Please include the patient's name, date of b irth, fax number and type of information needed. Additional request can be made by email at [email or web address]. For general questions of information about electronic records sharing, call [phone]. documented in this encounter Discharge Instructions * [...] concerns at this time. Pt discharged to [facility] via wheelchair with staff. * Paty Goins [...] . Will need follow-up with Dr. B[facility], but pt lives in [place], [place]. Plan for discharge today with plan for seria l bHCGs until complete resolution. D/w Dr. Briseida Acharya MD Obstetrics and Gynecology, PGY-1 Please page the Gynecology pager at [phone] with any questions or concerns. Thank you. [...] the short term but not a great detention consideration give her hx of stroke. Staff name: Paty Goins MD Date: 05/07/2021 * Shawna Jenkins RN - 05/07/2021 4:54 AM CDT 0455-Pt had uneventful night. Continues to be up with assist X2. Pt has had ve ry minimal bleeding throughout the night; see I/O. Voiding without incident. W ill continue to monitor. * Maribell Roblero - 05/06/2021 12:52 PM CDT 1252- CLAMP TRUCK DRIVER paged "Pt BP 94/41 with HR 61. Recheck BP 93/50 with HR 60. All other vitals WNL. Pt rates pain 8/10 cramping. Pt is due to receive dilaudid. Can she receive with soft BP? Or do you want me to hold dilaudid dose? Pt declines oxyco done." 1340- Per MD Booth, OK to give dilaudid at this time. 1415- [facility] notifying "This patient has signs and symptoms / risk factors suggest katie of sepsis". CLAMP TRUCK DRIVER paged. No new orders received at this [...] Ref Range Units Ordered 0 Crossmatch Expires 05/08/2021,3585 Record Check 2ND TYPE REQUIRED ABO/RH(D) A [...] Color,UA YELLOW Turbidity,UA 2+ (A) CLEAR-CLEAR Specific Calcium-Urine 1.012 1.003 - 1.035 pH,UA 7.0 5.0 [...] need JUAREZ follow-up, but pt lives in [place], [place]. D/w Dr. Briseida Acharya MD Obstetrics and Gynecology, PGY-1 Please page the Gynecology pager at [phone] with any questions or concerns. Thank you. [...] sitting down, measuring 390 ml. 0118: Paged CLAMP TRUCK DRIVER to notify of bleeding & patient's report of severe ABD cramping. 0130: Received order for STAT CBC & 1x dose 0.5 mg IV Dilaudid. 0147: CBC sent to lab & IV Dilaudid administered. 0217: Paged CLAMP TRUCK DRIVER per patient request for home HS meds to restart & to request order for diet. Hgb stable, 12.3. 0439: Clarified NPO status with Dr. Centeno. OK for sips with meds. Continuing to monitor. documented in this encounter Procedure Notes * Abi Chery MD - 05/06/2021 12:02 PM CDT PROCEDURE REPORT Name: Edith Garcia is a 40 y.o. female : 1980 MRN#: [id number] DATE OF PROCEDURE: PROCEDURE: intragestational sac lidocaine [...] of the procedure. Trav Acharya MD Pager [phone] documented in this encounter Consult Notes * Nirali Meier MD - 05/05/2021 10:20 PM CDT Associated Order(s): CONSULT PUMP SERVICER PHYSICIAN Gynecology Consult History and Physical Examination [...] EPC follow-up. Of note, pt lives in [place], [place]. D/w and s/w Dr. Renea Centeno MD PGY-2 Obstetrics and Gynecology Please page the Gynecology pager at [phone] with any questions or concerns. Thank you [...] PI OB History: , C/S x 1 Stitcher Set Up Operator Automatic History: LMP: 03/08/2021 Pap: Positive for h/o [...] Color,UA YELLOW Turbidity,UA 2+ (A) CLEAR-CLEAR Specific Calcium-Urine 1.012 1.003 - 1.035 pH,UA 7.0 5.0 [...] though, she does note that it was ux lead than normal. [facility] normal [facility] period [...] She presente d to her PCP in [place], [place] where she found out she was . An ult rasound was performed which showed that she had an ectopic in her cerv ix. The fetus did have a heartbeat. She was then referred to a higher level ca re for further management. She was told she could not go to [facility] because [facility] and the had a heartbeat. She [...] Final Turbidity,UA 2+ (*) CLEAR-CLEAR Final Specific Calcium-Urine 1.012 1.003 - 1.035 Final pH,UA 7.0 [...] CROSSMATCH Units Ordered 0 Final Crossmatch Expires 05/08/2021,2833 Final Record Check 2ND TYPE REQUIRED Final [...] x2 placed . Physical exam as above. /CLAMP TRUCK DRIVER exam deferred for STAT pelvic ultrasound to [...] . Pt states that she was in [place], [place] at her PCP when they did [...] AM CDT) Beta-HCG,Serum 8,816 (H) <5 U/L [facility] Specimen Blood Performing Organization Address City/State/ZIP Code P ash Number [facility] [address] [place] [address] * PATHOLOGY SURGICAL < 5 SPECIMENS (05/06/2021 12:15 PM CDT) Pathologist [facility] PATHOLOGY [facility] [employer] [facility] [email or web address] Department of Pathology and Laboratory Medicine [address] [place] [address] Surgical Pathology Office: [phone] SURGICAL PATHOLOGY REPORT NAME: EDITH GARCIA SURG PATH #: [id number] MR #: [id number] SPECIMEN CLASS: SR BILLING #: [id number] ALT ID #: LOCATION: DISCHARGED DATE OF [...] of Pathology and Laboratory Medicine of the [facility] ([employer]) in compliance with [...] of Pathology and Laboratory Medicine of the [facility]. It has not been cleared or approved by the FDA. The FDA has determined that such clearance or approval is not necessary. Specimen Other (Specify) Performing Organization Address City/State/ZIP Code P ash Number [facility] [address] [place] [address] * BETA-HCG (05/06/2021 6:09 AM CDT) Beta-HCG,Serum 24,433 (H) <5 U/L [facility] Specimen Blood Performing Organization Address City/State/ZIP Code P ash Number [facility] [address] [place] [address] * COMPREHENSIVE METABOLIC PANEL (05/06/2021 6:09 AM [...] >60 >60 mL/min [facility] Comment: [place] The eGFR is not validated f or use in drug dosing adjustments. Continue to use estimated creatinine clearance per dosing reference text. Please contact the Clinical Pharmacist for questions. eGFR >60 >60 mL/min [facility] [place] Comment: The eGFR is not validated for use in drug dosing adjustments. Continue to use estimated creatinine clearance per dosing reference text. Please contact the Clinical Pharmacist for questions. Specimen Blood Performing Organization Address City/State/ZIP Code P ash Number [facility] [address] [place] [address] * CBC AND DIFF (05/06/2021 6:09 AM [...] P ash Number [facility] [address] [place] [address] * CBC AND DIFF (05/06/2021 1:40 AM [...] Count Absolute 0.51 0 - 0.80 K/UL [facility] Monocyte Count Absolute 0.10 0 - 0.45 K/UL [facility] Eosinophil Count Absolute 0.07 0 - 0.20 K/UL [facility] Basophil Count Specimen Blood Performing Organization Address City/State/ZIP Code P ash Number [facility] [address] [place] [id number] * COVID-19 (SARS-COV-2) PCR (05/05/2021 11:55 PM CDT) COVID-19 FLOCKED SWAB [facility] (SARS-CoV-2) NASOPHARYNGEAL PCR Source COVID-19 NOT DETECTED DN-NOT DETECTED [facility] (SARS-CoV-2) Comment: PCR This assay is designed [...] performance characteristics have been verified by the [facility]. Fact sheet for providers: https://www.fda.gov/media/8840 85/download Fact sheet for patients: https://www.fda.gov/media/0345 87/download Specimen Flocked Swab - Nasopharyngeal Performing Organization Address City/State/ZIP Code P ash Number [facility] [address] [place] [id number] * US OB LT 14 WKS TRANSAB [...] Code P ash Number MAIN LAB [address] [place] [address] * UA REFLEX LABEL (05/05/2021 8:54 PM CDT) UA Reflex Criteria for reflex to culture [facility] Culture are WBC>10, Positive Nitrit e, and/or >=+1 leukocytes. If quantity is not sufficient, an addendum will follow. Specimen Urine Performing Organization Address City/State/ZIP Code P ash Number [facility] [address] [place] [address] * BETA-HCG (05/05/2021 8:54 PM CDT) Beta-HCG,Serum 25,064 (H) <5 U/L [facility] Specimen Blood Performing Organization Address [facility]/ZIP Code P ash Number [facility] [address] [place] [address] * URINALYSIS MICROSCOPIC REFLEX TO CULTURE (05/05/2021 [...] Epithelial Cells Specimen Urine Performing Organization Address [facility] P ash Number [facility] [address] [place] [id number] * URINALYSIS DIPSTICK REFLEX TO CULTURE (05/05/2021 8:54 PM CDT) Color,UA YELLOW [facility] Turbidity,UA 2+ (A) CLEAR-CLEAR [facility] Specific 1.012 1.003 - 1.035 [facility] Calcium-Urine pH,UA 7.0 5.0 - 8.0 [facility] [...] Acid, UA Specimen Urine Performing Organization Address [facility]/ZIP Code P ash Number [facility] [address] [place] [address] * MAGNESIUM (05/05/2021 8:54 PM CDT) Magnesium 2.2 1.6 - 2.6 mg/dL [facility] Specimen Blood Performing Organization Address [facility] P ash Number [facility] [address] [place] [address] * COMPREHENSIVE METABOLIC PANEL (05/05/2021 8:54 PM [...] >60 >60 mL/min [facility] Comment: [place] The eGFR is not validated f or use in drug dosing adjustments. Continue to use estimated creatinine clearance per dosing reference text. Please contact the Clinical Pharmacist for questions. eGFR >60 >60 mL/min [facility] [place] Comment: The eGFR is not validated for use in drug dosing adjustments. Continue to use estimated creatinine clearance per dosing reference text. Please contact the Clinical Pharmacist for questions. Specimen Blood Performing Organization Address [facility]/ZIP [facility] P ash Number [facility] [address] [place] [address] * TYPE & CROSSMATCH (05/05/2021 8:54 PM CDT) Units Ordered 0 [facility] Crossmatch 05/08/2021,2359 [facility] Expires Record Check 2ND TYPE REQUIRED [facility] ABO/RH(D) A POS [facility] Antibody Screen NEG [facility] Electronic YES [facility] Crossmatch Specimen Lung Performing Organization Address City/[facility]/ZIP Code P ash Number [facility] [address] [place] [address] * PTT (APTT) (05/05/2021 8:54 PM CDT) APTT 29.2 24.0 - 36.5 SEC [facility] Specimen Blood Performing Organization Address City/[facility]/ZIP Code P ash Number [facility] [address] [place] [id number] * PROTIME INR (PT) (05/05/2021 8:54 PM CDT) INR 1.1 0.8 - 1.2 [facility] Specimen Blood Performing Organization Address City/[facility]/ZIP Code P ash Number [facility] [address] [place] [id number] * CBC AND DIFF (05/05/2021 8:54 PM [...] ash Number MAIN LAB [address] [place] [address] * Critical Care (05/05/2021 8:33 PM CDT) [...] Jenkins, OLIVIER) 0849 (Given - Provider: Angela Slater) zonisamide (ZONEGRAN) capsule 300 mg 300 mg, [...] Date Consult Count Last Ordered Date CONSULT PUMP SERVICER PHYSICIAN 1 021 First Ordered Date Admission [...]
[2021-06-15 16:44] VITALS: BP 106/57
--- NOTE | 2021-06-15 17:09 | ED Lower Extremity ---
General Chief Complaint: Lower Extremity Stated Complaint: R LEG BULGE/PAIN Source: patient Exam Limitations: no limitations History of Present Illness Date Seen by Provider: Jun 15, 2021 Time Seen by Provider: 16:58 Initial Comments Patient is a 40-year-old female who presents to the emergency department today with a chief complaint of bruising noted behind her right knee. Patient denies any trauma but noticed the swelling and bruising discoloration behind the right knee today. She states she has some discomfort down into her calf. It hurts to move. And it is on her "stroke leg". Patient has a history of factor V Leyden deficiency and is on daily baby aspirin. Again she denies any trauma to the area. She just noted it today. She has not taken anything for the pain. Patient also has complaint of a bluish discoloration in her bellybutton and wanted me to take a look at that as well. Denies any other complaints of recent illness or injury. All other review of systems reviewed and negative except as stated. Onset: this afternoon Severity: mild Pain/Injury Location: right leg Method of Injury: unknown Allergies and Home Medications Allergies Coded Allergies: metronidazole (Unverified Allergy, Unknown, 09/23/19) Patient Home Medication List Home Medication List Reviewed: Yes Baclofen (Baclofen) 20 Mg Tablet, (Reported) Entered as Reported by: MATHEW HUTCHINSON on 04/01/201912 Carbamazepine (Carbamazepine ER) 400 Mg Tab.er.12h, (Reported) Entered as Reported by: MATHEW HUTCHINSON on 04/01/201912 Carbamazepine (Carbamazepine ER) 200 Mg Tab.er.12h, (Reported) Entered as Reported by: MATHEW HUTCHINSON on 04/01/201912 Escitalopram Oxalate (Escitalopram Oxalate) 10 Mg Tablet, (Reported) Entered as Reported by: MATHEW HUTCHINSON on 04/01/201912 Mirtazapine (Mirtazapine) 45 Mg Tablet, (Reported) Entered as Reported by: MATHEW HUTCHINSON on 04/01/201912 Oxycodone HCl/Acetaminophen (Oxycodone-Acetaminophen 5-325) 1 Each Tablet, 1 EACH PO Q6H PRN for PAIN-MODERATE Prescribed by: DREAD BEARD on 05/12/211828 Penicillin V Potassium (Penicillin V Potassium) 500 Mg Tablet, 500 MG PO QID Prescribed by: ALLYN BARRERA on 02/08/21 1718 Zonisamide (Zonisamide) 100 Mg Capsule, (Reported) Entered as Reported by: MATHEW HUTCHINSON on 04/01/20 191 Review of Systems Constitutional: see HPI EENTM: no symptoms reported Respiratory: no symptoms reported Cardiovascular: no symptoms reported Gastrointestinal: other (area of discoloration in umbilicus) Genitourinary: no symptoms reported Musculoskeletal: other (posterior right knee pain) Skin: other (bruising behind right knee with "lump") Psychiatric/Neurological: No Symptoms Reported All Other Systems Reviewed Negative Unless Noted: Yes Past Ldqcezu-Rcyuhv-Vdhzct Hx Patient Social History Tobacco Use?: Yes Tobacco type used: Cigarettes Use of E-Cig and/or Vaping dev: No Substance use?: No Alcohol Use?: No Immunizations Up To Date Tetanus Booster (TDap): Unknown First/Initial COVID19 Vaccinat: PT STATES "IM NOT GOING TO DISCLOSE THAT" Second COVID19 Vaccination [place]: PT STATES "IM NOT GOING TO DISCLOSE THAT" 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: PT 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 "IM NOT GOING TO DISCLOSE THAT" Seasonal Allergies Seasonal Allergies: No Past Medical History Surgery/Hospitalization HX: SX: CRANIOTOMY, MIHIR PROCEDURE, T&A, GALLBLADDER, LEFT HIP SURGERY (NO HARDWARE), MITRAL VALVE REPLACEMENT X2 PMH: MULTIPLE STROKES, FACTOR 5, ECTOPIC , EPILEPSY R SIDE RESIDUAL Surgeries: Yes (Mitral valve replacement x 2, craniotomy, MIHIR procedure) Cardiac, Gallbladder, Neurological, Tonsillectomy, Valve Replacement Respiratory: No Cardiac: Yes (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 oz. kg; 22.00 BMI Method: General Appearance: WD/WN, no apparent distress Neck: normal inspection Cardiovascular: regular rate, rhythm Respiratory: lungs clear, normal breath sounds, no respiratory distress, no accessory muscle use Gastrointestinal: non tender, soft, other (open comedone in umbilicus not infected appearing) Hips: bilateral hip non-tender, bilateral hip normal inspection, bilateral hip normal range of motion, bilateral hip no evidence of injury Legs: right leg other (patient has5 cm area of ecchymoses/hematoma in the popliteal space behind the right knee. mildly tender to palpation. no overlying erythma or warmth. distal pulses intact. no calf tenderness or swelling) Knees: bilateral knee non-tender, bilateral knee normal inspection, bilateral knee normal range of motion, bilateral knee no evidence of injury Ankles: bilateral ankle non-tender, bilateral ankle normal inspection, bilateral ankle normal range of motion, bilateral ankle no evidence of injury Feet: bilateral foot non-tender, bilateral foot normal inspection, bilateral foot normal range of motion, bilateral foot no evidence of injury Skin: normal color, warm/dry, other (hematoma posterior right knee; hematoma medial right knee) Progress/Results/Core Measures Results/Orders Vital Signs/I&O 06/15/21 16:44 Temp 37.1 Pulse 71 Resp 20 B/P (MAP) 106/57 (73) Pulse Ox 99 O2 Delivery Room Air Progress Progress Note : Time: 17:13 Progress Note patient reassured that she has a hematoma behind the right knee. return precautions given. No clinical indications for ultrasound Departure Impression Primary Impression: Hematoma of right lower leg Disposition: 01 HOME, SELF-CARE Condition: Stable Departure-Patient Inst. Decision time for Depature: 17:08 Referrals: [facility] (PCP) Primary Care Physician MADDISON CHAVIS (Family) Primary Care Physician Patient Instructions: HEMATOMA Add. Discharge Instructions: Apply warm wet washcloth to the area of swelling behind her right knee. This may help with any discomfort and also the swelling. Follow-up with your primary care doctor. Return to the emergency department for any new, concerning or emergent complaints or if the area becomes red, warm or you develop a fever DREAD BEARD MD Jun 15, 2021 17:09
== END 2021-06-15 17:12 | disposition home or self-care (01) ==
LOC: EDUNIT# 16:28 → ER 16:30
DX: S80.11XA Contusion of right lower leg, initial encounter (principal); S80.01XA Contusion of right knee, initial encounter; F41.9 Anxiety disorder, unspecified; F32.9 Major depressive disorder, single episode, unspecified; G40.909 Epilepsy, unspecified, not intractable, without status epilepticus; Z86.73 Personal history of transient ischemic attack (TIA), and cerebral infarction without residual deficits; Z72.0 Tobacco use; Z79.899 Other long term (current) drug therapy; X58.XXXA Exposure to other specified factors, initial encounter
CPT/HCPCS: 99281

== ENCOUNTER 2022-06-24 20:37 | Emergency (ER) | payer MEDICARE ==
[~2022-06-24] VITALS: Ht 170.1 cm; Wt 65.7 kg
[~2022-06-24 20:37] MED LIST changes: -ZONI100C29; +ZONI100C79
--- NOTE | 2022-06-24 21:01 | ED Respiratory ---
General Stated Complaint: COVID POSITIVE, SOB Source: patient Exam Limitations: no limitations History of Present Illness Date Seen by Provider: Jun 24, 2022 Time Seen by Provider: 20:40 Initial Comments 41-year-old female presenting after being COVID-positive and feeling slightly short of breath. Had a scratch in her throat on Tuesday, Tuesday her tested positive for COVID, Tuesday she developed a headache, and cough. Went to her regular doctor, was diagnosed with COVID yesterday. Started on Augmentin, dexamethasone, and Paxlovid. Has not been taking the Paxlovid after 1 dose. Her cough became a little bit more productive today of clear sputum and she felt mild dyspnea earlier today. Right now she feels at her baseline. Denies any fever. Otherwise denying any chest pain, abdominal pain, nausea, vomiting, weakness, numbness that is new, or any other concerns. Allergies and Home Medications Allergies Coded Allergies: metronidazole (Unverified Allergy, Unknown, 09/23/19) Patient Home Medication List Home Medication List Reviewed: Yes Baclofen (Baclofen) 20 Mg Tablet, (Reported) Entered as Reported by: MATHEW HUTCHINSON on 04/01/201912 Carbamazepine (Carbamazepine ER) 400 Mg Tab.er.12h, (Reported) Entered as Reported by: MATHEW HUTCHINSON on 04/01/201912 Carbamazepine (Carbamazepine ER) 200 Mg Tab.er.12h, (Reported) Entered as Reported by: MATHEW HUTCHINSON on 04/01/201912 Escitalopram Oxalate (Escitalopram Oxalate) 10 Mg Tablet, (Reported) Entered as Reported by: MATHEW HUTCHINSON on 04/01/201912 Mirtazapine (Mirtazapine) 45 Mg Tablet, (Reported) Entered as Reported by: MATHEW HUTCHINSON on 04/01/201912 Oxycodone HCl/Acetaminophen (Oxycodone-Acetaminophen 5-325) 1 Each Tablet, 1 EACH PO Q6H PRN for PAIN-MODERATE Prescribed by: DREAD BEARD on 05/12/211828 Penicillin V Potassium (Penicillin V Potassium) 500 Mg Tablet, 500 MG PO QID Prescribed by: ALLYN BARRERA on 02/08/211717 Zonisamide (Zonisamide) 100 Mg Capsule, (Reported) Entered as Reported by: MATHEW HUTCHINSON on 04/01/201912 Review of Systems Review of Systems Constitutional: No fever EENTM: No nose congestion Respiratory: cough Cardiovascular: No chest pain Gastrointestinal: No abdominal pain Genitourinary: no symptoms reported Musculoskeletal: no symptoms reported Skin: no symptoms reported Psychiatric/Neurological: No Symptoms Reported Hematologic/Lymphatic: No Symptoms Reported Immunological/Allergic: no symptoms reported All Other Systems Reviewed Negative Unless Noted: Yes Past Kzsluub-Hrgyur-Bpnulq Hx Patient Social History Tobacco Use?: No Immunizations Up To Date Tetanus Booster (TDap): Unknown First/Initial COVID19 Vaccinat: PT STATES "IM NOT GOING TO DISCLOSE THAT" Second COVID19 Vaccination [place]: PT STATES "IM NOT GOING TO DISCLOSE THAT" Seasonal Allergies Seasonal Allergies: No Past Medical History Surgery/Hospitalization HX: SX: CRANIOTOMY, MIHIR PROCEDURE, T&A, GALLBLADDER, LEFT HIP SURGERY (NO HARDWARE), MITRAL VALVE REPLACEMENT X2 PMH: MULTIPLE STROKES, FACTOR 5, ECTOPIC , EPILEPSY R SIDE RESIDUAL Surgeries: Yes (Mitral valve replacement x 2, craniotomy, MIHIR procedure) Cardiac, Gallbladder, Neurological, Tonsillectomy, Valve Replacement Respiratory: No Cardiac: Yes (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. 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 oz. kg; 21.00 BMI Method: General Appearance: WD/WN, no apparent distress Eyes: Bilateral Eye Normal Inspection HEENT: PERRL/EOMI, normal ENT inspection, pharynx normal Neck: non-tender, full range of motion, supple, normal inspection Respiratory: chest non-tender, lungs clear, normal breath sounds, no respiratory distress, no accessory muscle use Cardiovascular: regular rate, rhythm, no edema, no murmur Gastrointestinal: normal bowel sounds, non tender, soft; No distended, No guarding, No rebound Extremities: normal range of motion, non-tender, normal inspection, no pedal edema, no calf tenderness, normal capillary refill Neurologic/Psychiatric: no motor/sensory deficits, alert, normal mood/affect Skin: normal color, warm/dry Lymphatic: no adenopathy Progress/Results/Core Measures Suspected Sepsis SIRS Temperature: Pulse: Respiratory Rate: Blood Pressure / Mean: Results/Orders Vital Signs/I&O Capillary Refill : Progress Note : Progress Note 41yoF with above history coming in due to mild dyspnea in the setting of being positive for COVID. ABCs were intact and vitals were stable on presentation. Specifically, I personally ambulated the patient around the room for some time, and her oxygen remained around 99% and her heart rate remained in the 70s to 80s. She did not have any increase in work of breathing, lungs sounded clear, and she is well-appearing. I offered the patient a chest x-ray, but she states she feels well right now, and does not want to go forward with any type of work- up at this time. I counseled her on Paxlovid which was already written for her, and I believe she is stable for discharge with outpatient follow-up. She was sent home with strict return precautions. Departure Impression Primary Impression: COVID-19 Disposition: 01 HOME, SELF-CARE Condition: Stable Departure-Patient Inst. Decision time for Depature: 21:00 Referrals: [facility] (PCP) Primary Care Physician MADDISON CHAVIS (Family) Primary Care Physician Patient Instructions: COVID-19 ED Add. Discharge Instructions: Your lungs sound clear today and her oxygen was 98% or higher even with walking around which is a really good sign. I do recommend buying a pulse oximeter which we will check your oxygen at home. If it gets to be 89% and will not go up above 90% even with deep breathing for a couple minutes, then I recommend coming back to the ER. You can buy these online, or at any pharmacy. Work/School Note: Work Release Form Date Seen in the Emergency Department: Jun 24, 2022 Return to Work: Jun 28, 2022 Restrictions: Return-No Fever (24hrs) JOSE MALDONADO MD Jun 24, 2022 21:01
[2022-06-24 21:04] VITALS: BP 138/61
== END 2022-06-24 21:04 | disposition home or self-care (01) ==
LOC: EDUNIT# 20:37 → ER 20:39
DX: U07.1 COVID-19 (principal); Z88.1 Allergy status to other antibiotic agents; Z28.310 Unvaccinated for COVID-19
CPT/HCPCS: 99282

== ENCOUNTER 2023-04-26 11:23 | Emergency (ER) | payer MEDICARE ==
--- NOTE | 2023-04-26 12:10 | Diagnostic Imaging Report ---
PROCEDURE: CT head wo r/o stroke. TECHNIQUE: Multiple contiguous axial images were obtained through the brain without the use of intravenous contrast. Auto Exposure Controls were utilized during the CT exam to meet ALARA standards for radiation dose reduction. INDICATION: Slurred speech. COMPARISON: 02/08/2021. FINDINGS: There is continued bifrontal encephalomalacia, greater on the left, with associated focal encephalomalacia in the posterior left parietal lobe. The overlying calvarial surgical findings are stable. There is no evidence of intracranial hemorrhage. There is no abnormal mass effect or shift of midline structures. No other significant change is seen. 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 No acute intracranial abnormality is seen. Dictated by: Dictated on workstation # [id number]
--- NOTE | 2023-04-26 12:12 | Diagnostic Imaging Report ---
EXAMINATION: Chest 1 view HISTORY: Slurred speech COMPARISON: 09/23/2019. FINDINGS: The lungs are clear without edema or pneumonia. No pleural effusion or pneumothorax. Heart size is normal. IMPRESSION: 1. Clear lungs. Dictated by: Dictated on workstation # [id number]
[2023-04-26 12:44] LABS: BASOPHILS % (AUTO) 1 % (0-10); EOSINOPHILS % (AUTO) 1 % (0-10); HEMATOCRIT 42 % (35-52); HEMOGLOBIN 13.6 g/dL (11.5-16.0); LYMPHOCYTES # (AUTO) 1.9 10^3/uL (1.0-4.0); LYMPHOCYTES % (AUTO) 38 % (12-44); MEAN CORPUSCULAR HEMOGLOBIN 31 pg (25-34); MEAN CORPUSCULAR HGB CONC 32 g/dL (32-36); MEAN CORPUSCULAR VOLUME 96 fL (80-99); MEAN PLATELET VOLUME 10.5 fL (9.0-12.2); MONOCYTES # (AUTO) 0.4 10^3/uL (0.0-1.0); MONOCYTES % (AUTO) 7 % (0-12); NEUTROPHILS # (AUTO) 2.6 10^3/uL (1.8-7.8); NEUTROPHILS % (AUTO) 53 % (42-75); PLATELET COUNT 162 10^3/uL (130-400); WHITE BLOOD COUNT 4.9 10^3/uL (4.3-11.0)
[2023-04-26 12:54] LABS: PROTHROMBIN TIME PATIENT 13.4 SEC (12.2-14.7)
[2023-04-26 12:55] LABS: ALBUMIN 4.5 GM/DL (3.2-4.5); CHLORIDE 110 MMOL/L (98-107); POTASSIUM 3.7 MMOL/L (3.6-5.0); SODIUM 140 MMOL/L (135-145)
[2023-04-26 12:57] LABS: FIBRIN DEGRADATION PRODUCTS 0.86 UG/ML (0.00-0.49)
[2023-04-26 12:58] LABS: GLUCOSE 92 MG/DL (70-105); TOTAL PROTEIN 6.9 GM/DL (6.4-8.2)
[2023-04-26 12:59] LABS: CARBON DIOXIDE 22 MMOL/L (21-32)
[2023-04-26 13:00] LABS: BILIRUBIN,TOTAL 0.3 MG/DL (0.1-1.0)
[2023-04-26 13:01] LABS: ALKALINE PHOSPHATASE 68 U/L (40-136); CREATININE SERUM 0.94 MG/DL (0.60-1.30); GFR ESTIMATED 79
[2023-04-26 13:03] LABS: BUN/CREATININE RATIO 12
[2023-04-26 13:04] LABS: ALANINE AMINOTRANSFERASE 30 U/L (0-55)
--- NOTE | 2023-04-26 13:46 | ED Neurological Problem ---
General Chief Complaint: Neuro-Stroke Like Symptoms Stated Complaint: SLURRED SPEECH | POSSIBLE STROKE | HX OF STROKES Nursing Triage Note: PT AMB TO [facility] 4 WITH C/O SLURRED SPEACH 10 MIN [employer] HELPER AT THERAPY, INCREAED AURAS X5 DAYS, TINGLING ON R SIDE OF BODY AND FACE. PT HAS HX OF STROKE Source: patient Exam Limitations: no limitations History of Present Illness Date Seen by Provider: Apr 26, 2023 Time Seen by Provider: 11:28 Initial Comments This 42-year-old woman presents to the emergency room with primary complaint of slurred speech. She was at an appointment with her therapist who noticed the speech change during their session at approximately 1040. She then contacted her who brought her here. Patient has a history of multiple strokes. 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 She has not had persistent speech deficits but did require extensive speech therapy after her prior strokes. She also has history of seizure disorder. She has not had a grand mal seizures since 2013 but does experience what she calls "seizure aura.". These episodes have been increasing in frequency recently. They include a feeling of dysphoria and a tingling sensation. These episodes used to precede her grand mall seizures. She has had 4 such episodes in the last week which is unusual for her. She sees neurology at [facility] and is on antiepileptic medications. She has chronic right- sided spastic paralysis for which she receives Botox injections. She is due for a Botox injection soon. She had a headache with her aura today which is not generally typical. Stroke activation page was requested during my initial assessment. NIH score was 4. All points on the NIH score were for chronic deficits. The speech dysarthria was noted during my initial interview but seemed to resolve by the time of the NIH testing. Patient has a porcine valve. She is not anticoagulated. Dr. Bonner is her primary care provider. She denies any recent drug or alcohol use. 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 Patient reports history of factor V Leiden. Allergies and Home Medications Allergies Coded Allergies: metronidazole (Unverified Allergy, Unknown, 09/23/19) Patient Home Medication List Home Medication List Reviewed: Yes Baclofen (Baclofen) 20 Mg Tablet, (Reported) Entered as Reported by: MATHEW HUTCHINSON on 04/01/201912 Carbamazepine (Carbamazepine ER) 400 Mg Tab.er.12h, (Reported) Entered as Reported by: MATHEW HUTCHINSON on 04/01/201912 Carbamazepine (Carbamazepine ER) 200 Mg Tab.er.12h, (Reported) Entered as Reported by: MATHEW HUTCHINSON on 04/01/201912 Escitalopram Oxalate (Escitalopram Oxalate) 10 Mg Tablet, (Reported) Entered as Reported by: MATHEW HUTCHINSON on 04/01/201912 Mirtazapine (Mirtazapine) 45 Mg Tablet, (Reported) Entered as Reported by: MATHEW HUTCHINSON on 04/01/201912 Oxycodone HCl/Acetaminophen (Oxycodone-Acetaminophen 5-325) 1 Each Tablet, 1 EACH PO Q6H PRN for PAIN-MODERATE Prescribed by: DREAD BEARD on 05/12/211828 Penicillin V Potassium (Penicillin V Potassium) 500 Mg Tablet, 500 MG PO QID Prescribed by: ALLYN BARRERA on 02/08/211717 Zonisamide (Zonisamide) 100 Mg Capsule, (Reported) Entered as Reported by: MATHEW HUTCHINSON on 04/01/201912 Review of Systems Review of Systems Constitutional: no symptoms reported Eyes: No Symptoms Reported Ears, Nose, Mouth, Throat: no symptoms reported Respiratory: no symptoms reported Cardiovascular: no symptoms reported Gastrointestinal: no symptoms reported Genitourinary: no symptoms reported : No Musculoskeletal: see HPI Skin: no symptoms reported Psychiatric/Neurological: See HPI Endocrine: No Symptoms Reported Hematologic/Lymphatic: No Symptoms Reported Past Ektvdxd-Xwhzqt-Ktzxma Hx Patient Social History Tobacco Use?: Yes Tobacco type used: Cigarettes Substance use?: No Alcohol Use?: No Pt feels they are or have been: No Immunizations Up To Date Tetanus Booster (TDap): Unknown First/Initial COVID19 Vaccinat: PT STATES "IM NOT GOING TO DISCLOSE THAT" Second COVID19 Vaccination [place]: PT STATES "IM NOT GOING TO DISCLOSE THAT" Third COVID19 Vaccination Date: PT STATES "IM NOT GOING TO DISCLOSE THAT" Seasonal Allergies Seasonal Allergies: No Past Medical History Surgery/Hospitalization HX: SX: CRANIOTOMY, MIHIR PROCEDURE, T&A, GALLBLADDER, LEFT HIP SURGERY (NO HARDWARE), MITRAL VALVE REPLACEMENT X2 PMH: MULTIPLE STROKES, FACTOR 5, ECTOPIC , EPILEPSY R SIDE RESIDUAL Surgeries: Yes (Mitral valve replacement x 2, craniotomy, MIHIR procedure) Abdominal (Ectopic ), Cardiac, Gallbladder, Neurological, Tonsillectomy, Valve Replacement (Porcine valve) Respiratory: No Cardiac: Yes (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) Endocarditis, Valvular Heart Disease Neurological: Yes (RIGHT ARM PARALYSIS W/ CONTRACTURES;CVA X 3-LAST ONE 2007;LEFT CRANIOTOMY) Paralysis, Seizure Disorder, Stroke (Embolic and hemorrhagic) Last Menstrual Period: Apr 10, 2023 Reproductive Disorders: No Female Reproductive Disorders: Denies Genitourinary: No Gastrointestinal: Yes ("MIHIR PROCEDURE" ON COLON) Chronic Constipation Musculoskeletal: Yes (RIGHT ARM CONTRACTURES, right foot drop and spastic paralysis) Contracture Endocrine: No HEENT: No Cancer: No Psychosocial: Yes Anxiety, Depression Integumentary: No Blood Disorders: Yes (Factor V Leiden) Family Medical History PSH: -MITRAL VALVE REPLACEMENT X 2--LAST ONE IN 2007 IN [facility]. DUE TO ENDOCARDITIS DUE TO IV HEROIN USE -LEFT CRANIOTOMY DUE TO "BLOOD CLOT ON BRAIN" -"MIHIR PROCEDURE" ON COLON -CHOLECYSTECTOMY -CYST REMOVAL Physical Exam Vital Signs Vital Signs - First Documented 04/26/23 11:26 Temp 36.8 Pulse 81 Resp 16 B/P (MAP) 128/81 (97) Pulse Ox 100 O2 Delivery Room Air Capillary Refill : Height, Weight, BMI Height: '" Weight: lbs. oz. kg; 22.00 BMI Method: General Appearance: WD/WN, no apparent distress HEENT: PERRL/EOMI, normal ENT inspection, pharynx normal Neck: normal inspection Respiratory: lungs clear, normal breath sounds, no respiratory distress Cardiovascular: regular rate, rhythm, no edema, no murmur Gastrointestinal: non tender, soft; No distended Extremities: other (Contractures of the right upper extremity. AFO brace on the right foot.) Neurologic/Psychiatric: alert, normal mood/affect, oriented x 3 Crainal Nerves: normal hearing, PERRL, abnormal speech (Mild slurring of speech on initial presentation which resolved during NIH scoring), facial droop (Slight chronic right facial droop which is overcome with effort) Coordination/Gait: normal finger to nose (At baseline given right upper extremity chronic contractures) Motor/Sensory: no sensory deficit, weak motor strength RUE, weak motor strength RLE, other (Contractures and weakness of the right upper and lower extremity, stated as chronic and unchanged) Skin: normal color, warm/dry Stroke Onset of Symptoms Date of Onset of Symptoms: Apr 26, 2023 Time of Symptom Onset: 10:40 NIH Stroke Scale Assessment Level of Consciousness: 0=Alert (0), Level of Consciousness-Questions: 0=Answers both month/age (0), LOC Commands: 0=Performs both tasks (0), Gaze: Normal (0), Visual Fortune: 0=No visual loss (0), Facial Movement (Facial Paresis): 1=Minor paralysis (1), Motor Function-Arms Right: 2=Some effort/gravity (2), Motor Function-Arms Left: 0=No drift (0), Motor Function- Legs Right: 1=Drift (1), Motor Function-Legs Left: 0=No drift (0), Limb Ataxia: 0=Absent (0), Sensory: 0=Normal:no loss (0), Best Language: 0=No aphasia (0), Dysarthria: 0=Normal (0), Extinction & Inattention: 0=No abnormality (0), Total: 4 IV - TPa Received IV - TPa Procedure Performed?: No Progress/Results/Core Measures Results/Orders Lab Results Laboratory Tests Test 04/26/23 11:37 04/26/23 12:35 04/26/23 13:55 Range/Units Glucometer 114 H 70-110 MG/DL White Blood Count 4.9 4.3-11.0 10^3/uL Red Blood Count 4.38 3.80-5.11 10^6/uL Hemoglobin 13.6 11.5-16.0 g/dL Hematocrit 42 35-52 % Mean Corpuscular Volume 96 80-99 fL Mean Corpuscular Hemoglobin 31 25-34 pg Mean Corpuscular Hemoglobin Concent 32 32-36 g/dL Red Cell Distribution Width 12.4 10.0-14.5 % Platelet Count 162 130-400 10^3/uL Mean Platelet Volume 10.5 9.0-12.2 fL Immature Granulocyte % (Auto) 0 % Neutrophils (%) (Auto) 53 42-75 % Lymphocytes (%) (Auto) 38 12-44 % Monocytes (%) (Auto) 7 0-12 % Eosinophils (%) (Auto) 1 0-10 % Basophils (%) (Auto) 1 0-10 % Neutrophils # (Auto) 2.6 1.8-7.8 10^3/uL Lymphocytes # (Auto) 1.9 1.0-4.0 10^3/uL Monocytes # (Auto) 0.4 0.0-1.0 10^3/uL Eosinophils # (Auto) 0.0 0.0-0.3 10^3/uL Basophils # (Auto) 0.0 0.0-0.1 10^3/uL Immature Granulocyte # (Auto) 0.0 0.0-0.1 10^3/uL Prothrombin Time 13.4 12.2-14.7 SEC INR Comment 1.0 0.8-1.4 Activated Partial Thromboplast Time 31 24-35 SEC D-Dimer 0.86 H 0.00-0.49 UG/ML Sodium Level 140 135-145 MMOL/L Potassium Level 3.7 3.6-5.0 MMOL/L Chloride Level 110 H 98-107 MMOL/L Carbon Dioxide Level 22 21-32 MMOL/L Anion Gap 8 5-14 MMOL/L Blood Urea Nitrogen 11 7-18 MG/DL Creatinine 0.94 0.60-1.30 MG/DL Estimat Glomerular Filtration Rate 79 BUN/Creatinine Ratio 12 Glucose Level 92 70-105 MG/DL Calcium Level 9.0 8.5-10.1 MG/DL Corrected Calcium 8.6 8.5-10.1 MG/DL Total Bilirubin 0.3 0.1-1.0 MG/DL Aspartate Amino Transf (AST/SGOT) 23 5-34 U/L Alanine Aminotransferase (ALT/SGPT) 30 0-55 U/L Alkaline Phosphatase 68 40-136 U/L Troponin I < 0.028 <0.028 NG/ML Total Protein 6.9 6.4-8.2 GM/DL Albumin 4.5 3.2-4.5 GM/DL Serum Test, Qualitative NEGATIVE NEGATIVE Serum Alcohol < 10 <10 MG/DL Urine Color YELLOW Urine Clarity CLEAR Urine pH 7.0 5-9 Urine Specific [place] 1.015 L 1.016-1.022 Urine Protein NEGATIVE NEGATIVE Urine Glucose (UA) NEGATIVE NEGATIVE Urine Ketones NEGATIVE NEGATIVE Urine Nitrite NEGATIVE NEGATIVE Urine Bilirubin NEGATIVE NEGATIVE Urine Urobilinogen 0.2 < = 1.0 MG/DL Urine Leukocyte Esterase NEGATIVE NEGATIVE Urine RBC (Auto) NEGATIVE NEGATIVE Urine RBC NONE /HPF Urine WBC RARE /HPF Urine Squamous Epithelial Cells 2-5 /HPF Urine Crystals PRESENT H /LPF Urine Amorphous Sediment FEW JANNET PHOSPHATE H /LPF Urine Bacteria TRACE /HPF Urine Casts NONE /LPF Urine Mucus NEGATIVE /LPF Urine Culture Indicated NO Urine Opiates Screen NEGATIVE NEGATIVE Urine Oxycodone Screen NEGATIVE NEGATIVE Urine Methadone Screen NEGATIVE NEGATIVE Urine Propoxyphene Screen NEGATIVE NEGATIVE Urine Barbiturates Screen NEGATIVE NEGATIVE Ur Tricyclic Antidepressants Screen NEGATIVE NEGATIVE Urine Phencyclidine Screen NEGATIVE NEGATIVE Urine Amphetamines Screen NEGATIVE NEGATIVE Urine Methamphetamines Screen NEGATIVE NEGATIVE Urine Benzodiazepines Screen NEGATIVE NEGATIVE Urine Cocaine Screen NEGATIVE NEGATIVE Urine Cannabinoids Screen NEGATIVE NEGATIVE My Orders Orders - ALMAZ MILLER MD Ekg Tracing (04/26/23 11:30) Cbc With Automated Diff (04/26/23 11:37) Protime With Inr (04/26/23 11:37) Partial Thromboplastin Time (04/26/23 11:37) Comprehensive Metabolic Panel (04/26/23 11:37) Fibrin Degradation Products (04/26/23 11:37) Troponin I Milagros (04/26/23 11:37) Ua Culture If Indicated (04/26/23 11:37) Chest 1 View, Ap/Pa Only (04/26/23 11:37) Nothing By Mouth (04/26/23 Lunch) Accucheck Stat ONCE (04/26/23 11:37) Ed Iv/Invasive Line Start (04/26/23 11:37) Ed Iv/Invasive Line Start (04/26/23 11:37) Vital Signs Stroke Patient Q15M (04/26/23 11:37) Ct Head Wo-R/O Stroke (04/26/23 11:37) O2 (04/26/23 11:37) Monitor-Rhythm Ecg Trace Only (04/26/23 11:37) Dysphagia Screening Tool Q10MX1 (04/26/23 11:37) Post Thrombolytic Adminstratio (04/26/23 11:37) Alcohol (04/26/23 11:37) Drug Screen Stat (Urine) (04/26/23 11:37) Hcg,Qualitative Serum (04/26/23 11:37) Vital Signs/I&O 04/26/23 04/26/23 11:26 16:43 Temp 36.8 36.8 Pulse 81 74 Resp 16 16 B/P (MAP) 128/81 (97) 122/70 Pulse Ox 100 100 O2 Delivery Room Air Room Air Blood Pressure Mean: 97 FSBG Bedside Testing Finger Stick Blood Glucose: 114 Blood Glucose Action Taken: NOTIFIED Progress Progress Note : Progress Note Giselle was interviewed and examined at 1128. Stroke activation was requested. Her dysarthria seemed to resolve fairly rapidly after presentation. Stroke work-up was pursued. CT of the head was promptly obtained. No acute abnormalities were noted. Chronic findings were noted as stated below in radiologist's report. ECG was unremarkable by my interpretation as noted below. Labs were obtained, reviewed, and interpreted by me. CBC was unremarkable. Fingerstick blood sugar was 114. CMP was unremarkable. Troponin and serum test were negative. Toxicology screen was negative. Case was discussed with Dr. Ortiz, [facility] stroke neurologist, at 1546. Because patient had notable speech deficits previously requiring a year of speech therapy, her present syndrome was thought to be likely recrudescence of old stroke symptoms. Patient did acknowledge she has been under significant psychosocial stress recently and not sleeping as well as she should. This may have exacerbated her recrudescence. Patient also takes sedating medications including baclofen which may have contributed to the symptoms. Since symptoms have resolved and are consistent with recrudescence, Dr. Ortiz and I concur that no further intensive work-up is necessary in the emergency room. She may follow-up with her neurologist at [facility]. Return precautions were discussed with patient and . Patient was not a thrombolytic candidate as her NIH stroke score was low with points given only for chronic deficits. Her presenting symptom of dysarthria rapidly resolved without intervention. Her presentation and work-up was not convincing for acute stroke. Her blood pressure was in the low normotensive range which would also suggest against acute stroke. See discharge instructions for further discussion. Initial ECG Impression Date: Apr 26, 2023 Initial ECG Impression Time: 11:32 Initial ECG Rate: 74 Initial ECG Rhythm: Normal Sinus Initial ECG Intervals: Normal Initial ECG Impression: Normal Comment Normal sinus rhythm with no ST elevation or depression. No abnormal intervals or axis deviation. Diagnostic Imaging Diagonstic Imaging: Xray Plain Films/CT/US/NM/MRI: chest Comments NAME: GISELLE BALL MED REC#: [id number] PT STATUS: REG ER : 1980 PHYSICIAN: ALMAZ MILLER MD ADMIT DATE: 04/26/23/ER Signed Date of Exam:04/26/23 CHEST 1 VIEW, AP/PA ONLY EXAMINATION: Chest 1 view HISTORY: Slurred speech COMPARISON: 09/23/2019. FINDINGS: The lungs are clear without edema or pneumonia. No pleural effusion or pneumothorax. Heart size is normal. IMPRESSION: 1. Clear lungs. Dictated by: Dictated on workstation # [id number] Dict: 04/26/23 1206 Trans: 04/26/23 1642 [facility] [id number] Interpreted by: KRAIG DIAZ MD Electronically signed by: KRAIG DIAZ MD 04/26/23 164 Diagonstic Imaging: CT Plain Films/CT/US/NM/MRI: head Comments NAME: GISELLE BALL [facility] REC#: [id number] PT STATUS: REG ER : 1980 PHYSICIAN: ALMAZ MILLER MD ADMIT DATE: 04/26/23/ER Signed Date of Exam:04/26/23 CT HEAD WO-R/O STROKE PROCEDURE: CT head wo r/o stroke. TECHNIQUE: Multiple contiguous axial images were obtained through the brain without the use of intravenous contrast. Auto Exposure Controls were utilized during the CT exam to meet ALARA standards for radiation dose reduction. INDICATION: Slurred speech. COMPARISON: 02/08/2021. FINDINGS: There is continued bifrontal encephalomalacia, greater on the left, with associated focal encephalomalacia in the posterior left parietal lobe. The overlying calvarial surgical findings are stable. There is no evidence of intracranial hemorrhage. There is no abnormal mass effect or shift of midline structures. No other significant change is seen. 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 No acute intracranial abnormality is seen. Dictated by: Dictated on workstation # [id number] Dict: 04/26/23 1159 Trans: 04/26/23 1257 [id number] Interpreted by: FROILAN BACON MD Electronically signed by: FROILAN BACON MD 04/26/23 1257 Departure Impression Primary Impression: Dysarthria Additional Impression: History of CVA (cerebrovascular accident) Disposition: 01 HOME, SELF-CARE Condition: Improved Departure-Patient Inst. Decision time for Depature: 16:32 Referrals: [facility] [place] (PCP/Family) Primary Care Physician Patient Instructions: Stroke Add. Discharge Instructions: Follow-up with your neurologist as soon as possible. Please place a call to his office this afternoon or tomorrow morning to discuss the symptoms you have been experiencing. Please also follow-up with your primary care provider in the near future. Return to the emergency room promptly if you have any recurrent episodes of strokelike symptoms which could present as any neurologic deficits such as new weakness of an arm or leg, unusual confusion, difficulty generating or understanding speech, vision changes, facial drooping, balance problems, persistent dizziness, etc. Continue your usual medication regimen until otherwise instructed by your neurologist and/or your primary care provider. All discharge instructions reviewed with patient and/or family. Voiced understanding. Copy Copies To 1: POOJA BONNER JOSHUA T MD Apr 26, 2023 13:46
[2023-04-26 14:26] LABS: AMPHETAMINE SCREEN, URINE NEGATIVE (NEGATIVE); BARBITURATE SCREEN URINE NEGATIVE (NEGATIVE); CANNABINOID SCREEN, URINE NEGATIVE (NEGATIVE); COCAINE SCREEN URINE NEGATIVE (NEGATIVE); METHADONE STAT NEGATIVE (NEGATIVE); OPIATE SCREEN URINE NEGATIVE (NEGATIVE); OXYCODONE STAT NEGATIVE (NEGATIVE); PROPOXYPHENE STAT NEGATIVE (NEGATIVE); TRICYCLIC ANTIDEPRESSANTS SCRE NEGATIVE (NEGATIVE)
[2023-04-26 14:29] LABS: BILIRUBIN,URINE NEGATIVE (NEGATIVE); CLARITY,URINE CLEAR; COLOR,URINE YELLOW; GLUCOSE, URINE (UA) NEGATIVE (NEGATIVE); KETONES,URINE NEGATIVE (NEGATIVE); LEUKOCYTE ESTERASE ,URINE NEGATIVE (NEGATIVE); NITRITE,URINE NEGATIVE (NEGATIVE); PROTEIN,URINE NEGATIVE (NEGATIVE)
[2023-04-26 14:30] LABS: BACTERIA,URINE TRACE /HPF; WBC,URINE RARE /HPF
[2023-04-26 14:31] LABS: AMORPHOUS SEDIMENT,UR FEW AMOR PHOSPHATE /LPF
[2023-04-26 16:43] VITALS: BP 122/70
== END 2023-04-26 16:48 | disposition home or self-care (01) ==
LOC: EDUNIT# 11:23 → ER 11:26
DX: R47.1 Dysarthria and anarthria (principal); F17.210 Nicotine dependence, cigarettes, uncomplicated; Z86.73 Personal history of transient ischemic attack (TIA), and cerebral infarction without residual deficits
CPT/HCPCS: 70450; 71045; 80053; 80306; 81000; 82947; 84484; 84703; 85025; 85379; 85610; 85730; 93005; 93041; 99284; G0480; 36415; 80320